=== PATIENT | female | born 1955 | race African-American/Black ===

== ENCOUNTER 2017-10-23 15:42 | Inpatient (IN) | payer MEDICARE, OTHER ==
[2017-10-23 16:16] VITALS: BP 112/58
[2017-10-23] MEDS ORDERED: Magnesium Hydroxide (MOM) 30 mL UDC PO PRN (18:25)
[2017-10-23] MEDS ORDERED: ONDANSETRON HCL 4 MG PO PRN (18:25)
[2017-10-24] MEDS ORDERED: Maalox 30 mL Cup PO PRN (07:24)
[2017-10-24] MEDS: Levothyroxine 0.075 Mg Tab PO SCH (08:44)
--- NOTE | 2017-10-24 23:57 | Psychosocial Evaluation ---
DATE OF SERVICE: 10/24/2017 JUSTIFICATION FOR HOSPITALIZATION: Transferred from [facility]. CHIEF COMPLAINT: "I can't function well." HISTORY OF PRESENT ILLNESS: A 62-year-old female with history of schizophrenia, multiple psychiatric hospitalizations, bowel obstruction, some periods of forgetfulness noted by staff. The patient noted to be "not feeling well." States that she cannot function at a lower level of care. "I do not feel safe." The patient is still depressed, angry, withdrawn and isolative. She is friendly on exam, calm and cooperative. The patient states she needs to be in the hospital. PAST PSYCHIATRIC HISTORY: Multiple admissions in the past. MEDICATIONS: Noted. SOCIAL HISTORY: The patient does have family involvement. She generally lives at home. No current drugs, alcohol, or tobacco. MENTAL STATUS EXAMINATION: Stated age, -Burmese female, fair eye contact. Mood "okay." Asked me to come back later. Affect flat. Thought processes were linear and no overt SI or HI. Concerns for paranoia, suspicions. Insight and judgment reasonable. PROVISIONAL DIAGNOSES: Schizophrenia; anxiety, unspecified; mood, unspecified. Under medical, please see full H and P. ESTIMATED LENGTH OF STAY: 5-7 days. ASSESSMENT: The patient remains symptomatic, depressed, ongoing concern for suspicions, paranoia, underlying psychosis, not rodríguez for safety. PLAN: We will continue to monitor. Continue Remeron and Zyprexa. TREATMENT PLAN: Includes group as well as milieu therapy. CONDITIONS FOR DISCHARGE: Improved mood, improved affect, cessation of any SI or HI, better control of her psychotic symptoms. JOB# [id number]
[2017-10-25] MEDS: Levothyroxine 0.075 Mg Tab PO SCH (09:22)
--- NOTE | 2017-10-25 09:56 | Progress Notes ---
DATE: 10/25/2017 SUBJECTIVE: The patient is in the hospital. Some periods of forgetfulness noted, but otherwise calm, friendly and cooperative, depressed, withdrawn, not rodríguez for safety, noting that she does not feel safe to go home. She does not feel safe to leave the hospital, noted to be anxious at times, easily irritable, angry, withdrawn, mostly in her room, mostly keeps herself. She is able to care for her basic needs. She is able, for example, toilet herself. ASSESSMENT: The patient remains symptomatic, still not rodríguez for safety, ___ to depression, some isolation suspicion, concerns for an underlying psychosis. PLAN: We will continue to monitor. Medications were noted. We will adjust and titrate medications as tolerated. JOB# [id number]
--- NOTE | 2017-10-26 08:28 | Progress Notes ---
DATE: 10/26/2017 SUBJECTIVE: The patient is currently in the hospital, states her stomach hurts. She states she cannot eat. She wants an ambulance immediately taken to the hospital. I let her know she is already in the hospital. She states her mind is "more together". She states, "I don't know how to get better. She is pretty depressed, withdrawn, staff noting that she is forgetful at times, sometimes confused, making nonsensical statements. Medications were noted including dosages and frequencies, sleeping well, eating well, seems to be getting along well with staff and peers, no outbursts. ASSESSMENT: The patient remains symptomatic, depressed, withdrawn, complains of "ileus." The patient does not appear in distress, but states she has no appetite. We will continue to monitor and monitor for any overt side effects, adjust and titrate medications. [facility]# [id number]
[2017-10-26] MEDS: Levothyroxine 0.075 Mg Tab PO SCH (10:14)
[2017-10-27] MEDS ORDERED: Dicyclomine 10 mg Cap PO ONE ×2 (06:30)
[2017-10-27] MEDS: Levothyroxine 0.075 Mg Tab PO SCH (08:48)
[2017-10-27] MEDS ORDERED: Dicyclomine 10 mg Cap PO SCH (09:00)
--- NOTE | 2017-10-27 09:29 | Diagnostic Imaging Report ---
KUB abdominal film (portable) HISTORY: Pain Multiple loops of dilated small bowel is seen. The overall appearance suggests changes associated with a distal small bowel obstruction. Clinical correlation is needed. IMPRESSION: 1. Multiple loops of dilated small bowel consistent with a distal small bowel obstruction. Clinical correlation is needed.
[2017-10-27] MEDS: Dicyclomine 10 mg Cap PO SCH ×2 (15:15→21:14)
--- NOTE | 2017-10-27 22:37 | Progress Notes ---
DATE: 10/27/[address] Serrano. Case was discussed with staff of the patient, reviewed records. This is a 62-year-old female who was admitted on 10/23/2017 with a history of schizophrenia, transferred from [facility]. She has multiple psychiatric hospitalizations, bowel obstruction with periods of forgetfulness. She is not feeling well. She cannot function at a lower level of care, not feel safe, feeling depressed, angry, withdrawn that she has multiple admissions in the past. No family involvement. She lives at home, but no substance abuse. The patient diagnosed with schizophrenia. She is currently on olanzapine 5 mg twice a day, levothyroxine 0.15 mg daily and mirtazapine 15 mg at bedtime. The patient continues to be depressed, not feeling well, unable to enjoy herself. Continues to be confused, sometimes make a nonsensical statements. She is compliant with the medication with no side effects, no sedation or nausea, no extrapyramidal symptoms. We will continue to work with the patient in group therapy, milieu therapy, and adjust the medication as needed. JOB# [id number]
[2017-10-28 08:27] LABS: % BASOPHILS 0.2 % (0.0-2.0); % EOSINOPHILS 0.2 % (0.0-5.0); % LYMPHOCYTES 20.6 % (20.0-50.0); % MONOCYTES 7.7 % (2.0-10.0); % NEUTROPHILS 71.3 % (40.0-80.0); HEMATOCRIT 28.1 % (41.0-60); HEMOGLOBIN 9.4 gm/dL (12-16); LYMPHOCYTE ABSOLUTE 0.9 Th/cmm (1.5-3.0); MEAN CELL VOLUME 98.8 fl (81-100); MEAN CORPUSCULAR HGB CONC 33.3 pg (28.0-36.0); MEAN PLATELET VOLUME 8.1 fl; MONOCYTE ABSOLUTE 0.3 Th/cmm (0.3-1.0); PLATELET COUNT 207 Th/cmm (150-400); RED BLOOD COUNT 2.84 Mil/cmm (3.80-5.10); RED CELL DISTRIBUTION WIDTH 16.8 % (11.5-20.0); WHITE BLOOD COUNT 4.2 Th/cmm (4.8-10.8)
[2017-10-28] MEDS: Levothyroxine 0.075 Mg Tab PO SCH (08:35)
[2017-10-28] MEDS: POLYETHYLENE GLYCOL 3350 17 GM PACK PO SCH (08:35)
[2017-10-28] MEDS: Dicyclomine 10 mg Cap PO SCH ×3 (08:36→21:11)
[2017-10-28 08:53] LABS: ALB/GLOB RATIO 1.2 (1.0-1.8); ALBUMIN 3.5 gm/dL (3.7-5.3); ANION GAP 10.9 (7.0-16.0); BILIRUBIN,TOTAL 0.4 mg/dL (0.3-1.0); CALCIUM SERUM 9.5 mg/dL (8.6-10.3); CARBON DIOXIDE 26.8 mEq/L (21.0-31.0); CREATININE - SERUM 1.2 mg/dL (0.6-1.2); GFR AFRICAN-AMERICAN 58.2 ml/min (>90); GFR NON AFRICAN-AMERICAN 48.1 ml/min; POTASSIUM SERUM 4.7 mEq/L (3.5-5.1); TOTAL PROTEIN,SERUM 6.4 gm/dL (6.0-8.3)
--- NOTE | 2017-10-28 14:32 | History & Physical ---
ADMIT DATE: INTERNAL MEDICINE CONSULTATION REQUESTING PHYSICIAN: Dr. Serrano REASON FOR CONSULTATION: Chronic constipation, hypothyroidism, psychosis. HOSPITAL COURSE/IMPORTANT LABORATORY DATA: A 62-year-old female with history of chronic constipation and chronic ileus, off and on, takes Citrucel at home to help her out, was admitted on 10/20/2017 at [facility] for chronic constipation and the patient also placed on a hold and sent to the psychiatric unit. The patient states that since Thursday, her belly is getting bigger and having lots of abdominal cramps. She is passing urine fine and also have a soft bowel movement every day. The patient denies any vomiting since admission. No fever noted. No headache, vision problems, swallowing problem. The patient denies any nausea, vomiting, diarrhea. No UTI symptomatology. The patient denies any leg swelling or joint swelling. CURRENT MEDICATIONS: Include Synthroid 150 mcg once a day, lorazepam 1 mg once a day p.r.n., milk of magnesia 30 mL once a day p.r.n. for constipation, Remeron 15 mg at bedtime, Zyprexa 5 mg twice a day, Zofran 4 mg q.6 p.r.n., Maalox 30 mL q.4 p.r.n. for dyspepsia. ALLERGIES: HALDOL. SOCIAL HISTORY: Noncontributory. REVIEW OF SYSTEMS: See the history of presenting illness. PHYSICAL EXAMINATION: VITAL SIGNS: Blood pressure 119/76, pulse 58, respiratory rate 16, temperature 98.9, and oxygen saturation on room air 98%. HEENT: No icterus, no pallor, no teeth noted. No oral candidiasis or petechiae. Mucosa is moist and dry. Skin turgor normal. NECK: Supple. LUNGS: Clear. CARDIOVASCULAR: S1, S2 normal limit. ABDOMEN: Soft, gaseous to percussion, but no rebound, no guarding. Bowel sound is active in all quadrants. RECTAL: Deferred per the patient's request. EXTERNAL GENITALIA: Normal. EXTREMITIES: No leg edema noted. LABORATORY TESTS: Pending. KUB has a question of ileus versus small-bowel obstruction. ASSESSMENT AND PLAN: 1. Chronic constipation with ileus. 2. Rule out small-bowel obstruction. Watch for bowel movement and any other signs like vomiting. We will start the patient on Citrucel and Colace. 3. Hypothyroidism. Check TSH level. Continue Synthroid at 150 mcg and go from there. 4. 5150 hold on 10/21/2017. 5. Psychosis. 6. Cachexia with BMI of 14.7. We will give the patient Ensure 1 can t.i.d. JOB# [id number]
[2017-10-28 20:51] LABS: A1C % 4.3 % (4.0-6.0)
[2017-10-29] MEDS: Levothyroxine 0.075 Mg Tab PO SCH (09:18)
[2017-10-29] MEDS: Dicyclomine 10 mg Cap PO SCH ×3 (09:19→20:51)
[2017-10-29] MEDS: POLYETHYLENE GLYCOL 3350 17 GM PACK PO SCH (09:19)
[2017-10-29 09:22] LABS: HEP C ANTIBODY 0.1 s/co ratio (0.0-0.9)
[2017-10-29 12:16] LABS: FOLIC ACID >20.0 ng/mL (>3.0); HEP B SURFACE AG QL Negative (Negative)
--- NOTE | 2017-10-29 16:39 | Progress Notes ---
DATE: 10/28/2017 PSYCHIATRIC PROGRESS NOTE: Chart reviewed and the patient interviewed. Also discussed the patient's condition with the staff and reviewed records and labs. The patient is still depressed and she is still withdrawn. The patient is also complaining of "my abdomen is hurting." She also still has poor appetite and she is still feeling hopeless and helpless. Otherwise, the patient continued to comply with taking her medications. There are no side effects of medications. ASSESSMENT: The patient is still depressed and she still has poor appetite and poor intake. TREATMENT PLAN: Continue to monitor her behavior and her condition closely. Also, continue to work on her ineffective coping. Also, we will increase Remeron to 22.5 mg every day and continue to follow up. [facility]# [id number]
--- NOTE | 2017-10-30 01:18 | Progress Notes ---
DATE: 10/29/2017 Chart reviewed and the patient interviewed. Also, discussed the patient's condition with the staff and reviewed records and labs. The patient is complaining of abdominal pain. The patient also has been anxious and has been pacing up and down at times. Also, during my interview, the patient is angry and irritable mood because of her pain. She is asking for stronger pain medications. The patient also is still slightly suspicious and paranoid. Otherwise, the patient is compliant with taking her medications with no side effects of medications. ASSESSMENT: The patient is still confused and depressed. TREATMENT PLAN: Continue to work on her ineffective coping. Also, we will check on the reasons for her abdominal pain with the primary care. Also, continue working on her ineffective coping and followup. JOB# [id number]
[2017-10-30] MEDS: Levothyroxine 0.075 Mg Tab PO SCH (08:04)
[2017-10-30] MEDS: Dicyclomine 10 mg Cap PO SCH ×3 (08:04→21:17)
[2017-10-30] MEDS: POLYETHYLENE GLYCOL 3350 17 GM PACK PO SCH (08:04)
[2017-10-30] MEDS ORDERED: Hydrocodone/APAP 5mg/325mg Tab PO ONE (23:16)
[2017-10-31] MEDS: Dicyclomine 10 mg Cap PO SCH ×3 (09:10→21:30)
[2017-10-31] MEDS: Levothyroxine 0.075 Mg Tab PO SCH (09:10)
[2017-10-31] MEDS: POLYETHYLENE GLYCOL 3350 17 GM PACK PO SCH (09:10)
--- NOTE | 2017-10-31 09:17 | Diagnostic Imaging Report ---
KUB single view HISTORY: Abdominal pain. COMPARISON: KUB performed on 10/27/2017 FINDINGS: There is diffuse distended loops of bowel with slight improvement since prior exam. Copious stool is noted in the region of the transverse colon and descending colon. No gross free air. IMPRESSION: Diffuse distended loops of bowel with overall mild improvement since prior exam. Copious stool is again noted greatest within the transverse and descending colon. Continued follow-up is recommended.
--- NOTE | 2017-10-31 10:56 | Progress Notes ---
DATE: 10/30/2017 PSYCHIATRIC PROGRESS NOTE SUBJECTIVE: Chart reviewed and the patient interviewed. Also discussed the patient's condition with the staff and reviewed records and labs. The patient is still suspicious and paranoid. The patient also is guarded. She also is complaining of abdominal pain, but it seems to be less than before. The patient also is trying to interact more and she is trying to talk more about herself and her other feelings. The patient has continued to comply with taking her medications with no side effects. ASSESSMENT: The patient is still depressed and has trouble with her coping. TREATMENT PLAN: Continue supportive therapy for the patient. Also, continue working with her ineffective coping and followup. [facility]# [id number]
[2017-10-31] MEDS: Lactulose 10 Gm/15 mL 30mL UDC PO SCH (11:28)
--- NOTE | 2017-10-31 19:12 | Progress Notes ---
DATE: 10/31/2017 PSYCHIATRIC PROGRESS NOTE: Chart reviewed and the patient interviewed. Also, discussed the patient's condition with the staff and reviewed records and labs. The patient is depressed and isolative and anxious. The patient also is still withdrawn. She also is easily agitated. She continued to complain of abdominal pain and that she has constipation, although she did have a large bowel movement yesterday according to the staff. ASSESSMENT: The patient is still depressed and agitated. TREATMENT PLAN: Continue monitoring her behavior and her condition. Also, the abdominal x-ray will be done later on today and continue to work on supportive therapy and her depression and agitation. JOB# [id number]
[2017-11-01] MEDS: Lactulose 10 Gm/15 mL 30mL UDC PO SCH (09:23)
[2017-11-01] MEDS: POLYETHYLENE GLYCOL 3350 17 GM PACK PO SCH (09:24)
[2017-11-01] MEDS: Dicyclomine 10 mg Cap PO SCH ×3 (09:25→22:17)
[2017-11-01] MEDS: Levothyroxine 0.075 Mg Tab PO SCH (09:25)
--- NOTE | 2017-11-02 01:38 | Progress Notes ---
DATE: 11/01/2017 SUBJECTIVE: Chart reviewed and the patient interviewed. Also, discussed the patient's condition with the staff and reviewed the records and labs. The patient is still guarded. The patient also is still suspicious and paranoid. The patient also is still having abdominal pain and continued to ask for more pain medications. She also is still attention seeking. She also is still hypertalkative. Otherwise, the patient is compliant with taking her medications with no side effects of medications. ASSESSMENT: The patient is still depressed and need close monitoring. TREATMENT PLAN: Continue to monitor her behavior and her condition closely. Also, continue adjusting psychotropic medications and supportive therapy. JOB# [id number]
[2017-11-02] MEDS: Lactulose 10 Gm/15 mL 30mL UDC PO SCH (12:20)
[2017-11-02] MEDS: Dicyclomine 10 mg Cap PO SCH ×3 (12:20→20:46)
[2017-11-02] MEDS: POLYETHYLENE GLYCOL 3350 17 GM PACK PO SCH (12:21)
[2017-11-02] MEDS: Levothyroxine 0.075 Mg Tab PO SCH (12:21)
--- NOTE | 2017-11-02 20:33 | Progress Notes ---
DATE: 11/02/2017 PATIENT'S ID: A 62-year-old. SUBJECTIVE: The patient seen and examined. The patient is very well known to me for her multiple admissions at [facility] as well as [facility]. The patient was admitted by Dr. Libia Serrano on 10/23/2017 for psychotic disorder, evaluated this patient for medical management. The patient currently denies any chest pain, shortness of breath, palpitation, dizziness, nausea, vomiting, diarrhea. PHYSICAL EXAMINATION: VITAL SIGNS: Temperature 98, pulse is 74, respiratory rate 18, blood pressure 120/70. HEENT: Absent upper and lower dentition noted. NECK: Supple, no JVD. HEART: Regular. CHEST AD LUNGS: Equal in expansion, no expiratory wheezing. ABDOMEN: Soft. No guarding or rigidity. Bowel sounds are present. No palpable masses. EXTREMITIES: No edema. CLINICAL IMPRESSION: 1. History of chronic constipation. 2. Hypothyroidism. 3. Psychotic disorder. 4. Chronic obstructive pulmonary disease. 5. Degenerative joint disease. 6. Fall precautions. PLAN: 1. Anti-constipation medications. 2. Synthroid. 3. Psych medication. 4. Nutritional support. 5. General nursing care. 6. We will continue to follow this patient during the stay in the hospital. JOB# [id number]
--- NOTE | 2017-11-02 23:14 | Progress Notes ---
DATE: 11/02/2017 PSYCHIATRIC PROGRESS NOTE SUBJECTIVE: Chart reviewed and the patient interviewed. Also discussed the patient's condition with the staff and reviewed records and labs. The patient is still anxious and she is still in a depressed mood. The patient also still has difficulty controlling her mood sometimes and still having some mood swings. The patient also is still pacing at times and restless and hyperverbal. Otherwise, the patient is compliant with taking her medications and easier to redirect. ASSESSMENT: The patient is still depressed. TREATMENT PLAN: Continue monitoring her behavior and her condition closely. Also, increase Remeron to 30 mg at bedtime and we will continue to follow up. JOB# [id number]
[2017-11-03] MEDS: Dicyclomine 10 mg Cap PO SCH ×3 (08:07→20:30)
[2017-11-03] MEDS: Levothyroxine 0.075 Mg Tab PO SCH (08:08)
[2017-11-03] MEDS: Lactulose 10 Gm/15 mL 30mL UDC PO SCH ×2 (08:09→08:13)
[2017-11-03] MEDS: POLYETHYLENE GLYCOL 3350 17 GM PACK PO SCH (08:12)
--- NOTE | 2017-11-04 01:30 | Progress Notes ---
DATE: 11/03/2017 SUBJECTIVE: Chart reviewed and the patient interviewed. Also discussed the patient's condition with the staff and reviewed the records and labs. The patient is still anxious and is still in a depressed mood. The patient also still has complained of abdominal pain. The patient also is still weak and she still at times feels dizzy. Otherwise, the patient is compliant with taking the medications. I discussed with the patient and renal case manager, the possibility of admitting the patient to ____ rehabilitation and also to monitor her medical condition more and we will work toward that. At the same time, continue current treatment and medications and continue to follow up. JOB# [id number]
[2017-11-04] MEDS: Levothyroxine 0.075 Mg Tab PO SCH (08:59)
[2017-11-04] MEDS: Dicyclomine 10 mg Cap PO SCH ×3 (09:01→20:28)
[2017-11-04] MEDS: Lactulose 10 Gm/15 mL 30mL UDC PO SCH (09:02)
[2017-11-04] MEDS: POLYETHYLENE GLYCOL 3350 17 GM PACK PO SCH (10:41)
--- NOTE | 2017-11-04 21:31 | Progress Notes ---
DATE: SUBJECTIVE: Chart reviewed and the patient interviewed. Also discussed the patient's condition with the staff and reviewed records and labs. The patient still has multiple somatic complaints. The patient also is still complaining of abdominal pain and lack of appetite. The patient also complaining of feeling weak. The patient also still has problem with her mood and her appetite. Otherwise, the patient is compliant with taking her medications. ASSESSMENT: The patient is still depressed. TREATMENT PLAN: We will continue Zyprexa and we will continue Remeron at same dose. Also, continue to monitor her behavior and medications closely. Also discussed with the patient the possibility of going to a [place] in order to continue her treatment and in order to work on her physical therapy since the patient is still weak and have unsteady gait. [facility]# [id number]
--- NOTE | 2017-11-05 00:31 | Progress Notes ---
DATE: 11/04/2017 SUBJECTIVE: The patient seen and examined. The patient is lying in the bed. The patient has no new complaint. The patient remained hemodynamically stable. OBJECTIVE: VITAL SIGNS: Temperature 98, pulse is 74, respiratory rate 18, blood pressure 102/62. Discussed with nursing staff about their concern on today's exam. HEENT: No facial asymmetry. NECK: Supple, no JVD. HEART: Regular. CHEST: Lung equal in expansion, no expiratory wheezing. ABDOMEN: Soft. No guarding, no rigidity. Bowel sounds present. No palpable mass. EXTREMITIES: No edema. NEUROLOGIC: Alert, awake, follows command. No gross neuro deficit noted. CLINICAL IMPRESSION: 1. Chronic obstructive pulmonary disease. 2. Chronic constipation. 3. Hypothyroidism. 4. Psychotic disorder. 5. Degenerative joint disease. 6. Protein calorie malnutrition. 7. Anemia of chronic illness. PLAN: 1. Anticonstipation medications. 2. P.r.n. nebulizer treatment. 3. Psychotic medication. 4. Nutritional support. 5. General nursing care. 6. Fall precautions. 7. Continue current medication. 8. Medication management. 9. Care plan reviewed and discussed. JOB# [id number]
[2017-11-05] MEDS: Levothyroxine 0.075 Mg Tab PO SCH (09:00)
[2017-11-05] MEDS: Dicyclomine 10 mg Cap PO SCH ×3 (09:00→20:35)
[2017-11-05] MEDS: Lactulose 10 Gm/15 mL 30mL UDC PO SCH (09:02)
[2017-11-05] MEDS: POLYETHYLENE GLYCOL 3350 17 GM PACK PO SCH (09:03)
--- NOTE | 2017-11-05 18:32 | Progress Notes ---
DATE: 11/05/2017 DATE OF EVALUATION: 11/05/2017 SUBJECTIVE: The patient seen and examined. The patient is sitting in the chair. The patient tells me she is eating better now. Denies any chest pain, shortness of breath, palpitation, or dizziness. Discussed with nursing staff, no new event noted. PHYSICAL EXAMINATION: GENERAL: The patient has low-grade temperature of 99.2, pulse 77, respiratory rate is 18, blood pressure 108/67. HEENT: No facial asymmetry. Absent upper and lower dentition noted. NECK: Supple, no JVD. HEART: Regular. CHEST: Lungs equal in expansion, no expiratory wheezing. ABDOMEN: Soft. No guarding, rigidity. Bowel sounds present. No palpable mass. EXTREMITIES: No edema. CLINICAL IMPRESSION: 1. Acute exacerbation of psychotic disorder. 2. Chronic constipation. 3. Anemia of chronic disease. 4. Chronic obstructive pulmonary disease. 5. Degenerative joint disease. 6. Diverticulosis. 7. Mild leukopenia on CBC on 10/28/2017. PLAN: Continue current medication as prescribed. Avoid constipation. Psych medication and psych followup. General nursing care. Fall precautions, nutritional support, and will do the followup CBC for tomorrow. Care plan reviewed and discussed with RN. JOB# [id number]
[2017-11-06] MEDS: Lactulose 10 Gm/15 mL 30mL UDC PO SCH ×2 (08:26→08:58)
[2017-11-06] MEDS: Dicyclomine 10 mg Cap PO SCH ×2 (08:33→13:58)
[2017-11-06] MEDS: Levothyroxine 0.075 Mg Tab PO SCH (08:34)
[2017-11-06] MEDS: POLYETHYLENE GLYCOL 3350 17 GM PACK PO SCH (08:54)
--- NOTE | 2017-11-06 20:47 | Progress Notes ---
DATE: SUBJECTIVE: Chart reviewed and the patient interviewed. Also discussed the patient's condition with the staff and reviewed records and labs. The patient is still anxious and she is still agitated. The patient also still having mood swings. The patient also is complaining of abdominal pain and lack of appetite. Otherwise, the patient is compliant with taking her medications with no side effects of medications. ASSESSMENT: The patient is still anxious and depressed. TREATMENT PLAN: Continue to monitor the patient's behavior and condition closely. Also, continue to work on discharge plans and try to get the patient to [facility] if she is cooperative with the discharge plans. JOB# [id number]
== END 2017-11-06 17:05 | disposition home or self-care (01) | DRG 885 ==
LOC: GERO 15:42
PROVIDERS: ADMIT Psychiatry & Neurology Psychiatry; ATTEND Psychiatry & Neurology Psychiatry
DX: F20.9 Schizophrenia, unspecified (principal); E46 Unspecified protein-calorie malnutrition; Z68.1 Body mass index [BMI] 19.9 or less, adult; F41.9 Anxiety disorder, unspecified; F39 Unspecified mood [affective] disorder; K59.09 Other constipation; E03.9 Hypothyroidism, unspecified; F29 Unspecified psychosis not due to a substance or known physiological condition; J44.9 Chronic obstructive pulmonary disease, unspecified; M19.90 Unspecified osteoarthritis, unspecified site; D63.8 Anemia in other chronic diseases classified elsewhere
CPT/HCPCS: 36415-UA; 74000-TC; 80053-TC; 80061-TC; 82150-TC; 82270-TC; 82607-90; 82746-90; 82948-90; 83036-90; 83540-90; 83550-90; 83690-TC; 84443-TC; 85025-TC; 86803-90; 87340-90; 90899; G0410; J7051; Q0162; Z7610

== ENCOUNTER 2018-11-20 07:57 | Inpatient (IN) | payer MEDICARE, OTHER ==
--- NOTE | 2018-11-20 08:23 | ED Physician Chart ---
ED Chief Complaint/HPI - Patient Information Date Seen:: 11/20/18 Time Seen:: 08:18 Chief Complaint:: mental disorder History of Present Illness:: This is a 63 yo female bib her son for evaluation and treatment from home. she has been in this hospital for the same complaints in the past and under the care of Dr. Serrano. the patient seems to be depressed with occasional mood swings. Allergies:: Allergies Allergy/AdvReac Type Severity Reaction Status Date / Time haloperidol [From Haldol] Allergy Verified 10/23/17 16:22 Historian:: Patient, Family Member, Medical Records Review:: Nurse's Note Reviewed, Old Chart Reviewed ED Review of Systems - Review of Systems General/Constitutional: No fever, No chills, No weight loss, No weakness, No diaphoresis, No edema, No loss of appetite Skin: No skin lesions, No rash, No bruising Head: No headache, No light-headedness Eyes: No loss of vision, No pain, No diplopia ENT: No earache, No nasal drainage, No sore throat, No tinnitus Neck: No neck pain, No swelling, No thyromegaly, No stiffness, No mass noted Cardio Vascular: No chest pain, No palpitations, No PND, No orthopnea, No edema Pulmonary: No SOB, No cough, No sputum, No wheezing GI: No nausea, No vomiting, No diarrhea, No pain, No melena, No hematochezia, No constipation, No hematemesis G/U: No dysuria, No frequency, No hematuria Musculoskeletal: No bone or joint pain, No back pain, No muscle pain Endocrine: No polyuria, No polydipsia Psychiatric: Prior psych history, Depression, No anxiety, No suicidal ideation Hematopoietic: No bruising, No lymphadenopathy Allergic/Immuno: No urticaria, No angioedema Neurological: No syncope, No focal symptoms, No weakness, No paresthesia, No headache, No seizure, No dizziness, No confusion, No vertigo ED Past Medical History - Past Medical History Obtainable: Yes Past Medical History: Asthma/COPD, Dyslipidemia, Thyroid disorder, Dementia Family History: None Social History: Non Smoker, No Alcohol, No Drug Use, Single Surgical History: None Psychiatricy History: Depression, Schizophrenia, Dementia Family Medical History - Family Member Mother History Unknown: Yes ED Physical Exam - Physical Examination General/Constitutional: Awake, Well-developed, well-nourished, Alert, No distress, GCS 15, Non-toxic appearing, Ambulatory Head: Atraumatic Eyes: Lids, conjuctiva normal, PERRL, EOMI Skin: Nl inspection, No rash, No skin lesions, No ecchymosis, Well hydrated, No lymphadenopathy ENMT: External ears, nose nl, Nasal exam nl, Lips, teeth, gums nl Neck: Nontender, Full ROM w/o pain, No JVD, No nuchal rigidity, No bruit, No mass, No stridor Respiratory: Nl effort/Exclusion, Clear to Auscultation, No Wheeze/Rhonchi/Rales Cardio Vascular: RRR, No murmur, gallop, rubs, NL S1 S2 GI: No tenderness/rebounding/guarding, No organomegaly, No hernia, Normal BS's, Nondistended, No mass/bruits, No McBurney tenderness : No CVA tenderness Extremities: No tenderness or effusion, Full ROM, normal strength in all extremities, No edema, Normal digits & nails Neuro/Psych: Alert/oriented, DTR's symmetric, Normal sensory exam, Normal motor strength, Judgement/insight normal (depressed), Mood normal (mood swings, ), Normal gait, No focal deficits Misc: Normal back, No paraspinal tenderness ED Labs/Radiology/EKG Results - Lab Results Results: Laboratory Results - last 24 hr 11/20/18 11/20/18 11/20/18 08:40 08:40 08:40 WBC 6.8 RBC 2.82 L Hgb 8.7 L Hct 26.2 L MCV 92.9 MCH 30.9 MCHC Differential 33.3 RDW 15.1 Plt Count 225 MPV 8.8 Neutrophils % 67.3 Lymphocytes % 17.0 L Monocytes % 5.1 Eosinophils % 10.1 H Basophils % 0.5 PT 11.6 H INR 1.13 PTT (Actin FS) 28.8 Troponin I 0.02 - Radiology Results Results: chest x-ray = findings consistent with copd - EKG Interpretations EKG Time:: 08:42 Rate & Rhythm: rate =55, left bundle branch block Rowe: right ED Assessment - Assessment General Assessment: depression and schizophrenia ED Septic Shock - . Is Septic Shock (SBP<90, OR Lactate>4 mmol\L) present?: No ED Reassessment (Disposition) - Reassessment Reassessment Condition:: Unchanged - Diagnosis Diagnosis:: severe depression anemia - Patient Disposition Discharge/Transfer:: Acute Care w/in this hosp Admitted to:: [facility] Admitting Medical Physician:: Jacky Almendarez Admitting Psych Physician:: Libia Serrano Condition at Disposition:: Stable
[2018-11-20 08:48] LABS: % BASOPHILS 0.5 % (0.0-2.0); % EOSINOPHILS 10.1 % (0.0-5.0); % MONOCYTES 5.1 % (2.0-10.0); % NEUTROPHILS 67.3 % (40.0-80.0); EOSINOPHILE ABSOLUTE 0.7 Th/cmm (0.1-0.4); HEMATOCRIT 26.2 % (41.0-60); HEMOGLOBIN 8.7 gm/dL (12-16); LYMPHOCYTE ABSOLUTE 1.2 Th/cmm (1.5-3.0); MEAN CELL VOLUME 92.9 fl (81-100); MEAN CORPUSCULAR HEMOGLOBIN 30.9 pg (27.0-31.0); MEAN CORPUSCULAR HGB CONC 33.3 pg (28.0-36.0); MONOCYTE ABSOLUTE 0.3 Th/cmm (0.3-1.0); NEUTROPHILE ABSOLUTE 4.6 Th/cmm (1.8-8.0); PLATELET COUNT 225 Th/cmm (150-400); RED BLOOD COUNT 2.82 Mil/cmm (3.80-5.20); RED CELL DISTRIBUTION WIDTH 15.1 % (11.5-20.0); WHITE BLOOD COUNT 6.8 Th/cmm (4.8-10.8)
[2018-11-20 08:57] LABS: INR 1.13 (0.5-1.4)
[2018-11-20 09:28] LABS: ALB/GLOB RATIO 1.1 (1.0-1.8); ALBUMIN 4.3 gm/dL (3.7-5.3); ANION GAP 17.3 (7.0-16.0); BILIRUBIN,TOTAL 0.5 mg/dL (0.3-1.0); CALCIUM SERUM 9.4 mg/dL (8.6-10.3); CARBON DIOXIDE 23.7 mEq/L (21.0-31.0); CREATININE - SERUM 3.1 mg/dL (0.6-1.2); GFR AFRICAN-AMERICAN 19.4 ml/min (>90); TOTAL PROTEIN,SERUM 8.3 gm/dL (6.0-8.3)
--- NOTE | 2018-11-20 09:44 | Diagnostic Imaging Report ---
Exam: Chest x-ray HISTORY: Congestion Prior exam: None Findings: Frontal examination of the chest was reviewed, no prior studies available comparison. Bony thorax is intact. Left-sided PICC line terminates left axillary vein. The aortic arch calcified. Mediastinal structures midline. There is evidence for elevation of the diaphragm bilaterally with distended air bowel loops. IMPRESSION no acute disease.
[2018-11-20 09:57] LABS: URINE SOURCE CLEAN C
[2018-11-20 09:59] LABS: URINE BILIRUBIN NEGATIVE (NEGATIVE); URINE BLOOD MODERATE (NEGATIVE); URINE GLUCOSE (UA) NEGATIVE (NEGATIVE); URINE KETONE NEGATIVE (NEGATIVE); URINE LEUKOCYTE ESTERASE NEGATIVE (NEGATIVE); URINE MICROSCOPIC INDICATED? YES; URINE NITRATE NEGATIVE (NEGATIVE); URINE PROTEIN NEGATIVE (NEGATIVE); URINE UROBILINOGEN 0.2 E.U./dL (0.2 - 1.0)
[2018-11-20 10:06] LABS: URINE BACTERIA NONE SEEN /hpf (NONE SEEN); URINE CLARITY CLEAR (CLEAR); URINE COLOR YELLOW; URINE EPITHELIAL CELLS FEW /lpf (FEW); URINE WBC 0-2 /hpf (0-5)
[2018-11-20 23:36] VITALS: BP 139/66
[2018-11-21] MEDS ORDERED: Magnesium Hydroxide (MOM) 30 mL UDC PO PRN ×3 (06:00→13:28)
[2018-11-21] MEDS ORDERED: Maalox 30 mL Cup PO PRN ×2 (06:00→13:28)
[2018-11-21 06:30] LABS: CHOLESTEROL 151 mg/dL (<200); HDL -HIGH DENSITY LIPOPROTEIN 65 mg/dL (23-92); TRIGLYCERIDES 67 mg/dL (<150)
[2018-11-21] MEDS: Multivitamin Tab PO SCH ×2 (09:00)
[2018-11-21] MEDS ORDERED: ONDANSETRON HCL 4 MG PO PRN (13:28)
[2018-11-21] MEDS: Dicyclomine 10 mg Cap PO SCH ×3 (14:00→21:35)
--- NOTE | 2018-11-21 14:52 | History & Physical ---
ADMIT DATE: 11/20/2018 INTERNAL MEDICINE HISTORY AND PHYSICAL CHIEF COMPLAINT: Not eating, feeling depressed, this is a medical evaluation. HISTORY OF PRESENT ILLNESS: This is a 63-year-old -[place] female with history of dysphagia with G-tube, COPD, dementia, hypothyroidism, DJD, admitted apparently from home, brought in by son to the ER for possible evaluation and admitted to [facility]. PAST MEDICAL HISTORY: As mentioned in history of present illness. PAST SURGICAL HISTORY: G-tube. ALLERGIES: HALDOL. MEDICATIONS: The patient is on Synthroid, lorazepam, mirtazapine, olanzapine, Zofran, Bentyl, lactulose, MiraLax. FAMILY HISTORY: Noncontributory. SOCIAL HISTORY: The patient is from home, unclear whether she is a smoker and drinker. REVIEW OF SYSTEMS: Limited. The patient is answering questions. So we will try to get information from friend, Sidney Denise and son, Yogesh Haq, [phone]. Also we will try to get information from the patient's primary care doctor who follows the patient. PHYSICAL EXAMINATION: VITAL SIGNS: Blood pressure 103/59, respirations 20, pulse 80, temperature 98.6. GENERAL: Elderly female, appears her stated age. NECK: Supple. LUNGS: Equal breath sounds, few rhonchi. HEART: Regular rate and rhythm without systolic ejection murmur. ABDOMEN: Soft, globular. EXTREMITIES: Positive excoriation. NEUROLOGIC: Limited. LABORATORY DATA: WBC 6.8, hemoglobin 8.7, platelets 225. INR 1.1. Sodium 136, potassium 4.0, BUN 35, creatinine 3.1. TSH 1.5. UA essentially negative. ASSESSMENT AND PLAN: 1. Anemia of renal insufficiency. 2. Thin built. 3. Dysphagia with G-tube. 4. Chronic obstructive pulmonary disease. 5. Dementia. 6. Hypothyroidism. 7. Degenerative joint disease. PLAN: We will perform renal ultrasound. Monitor the patient's renal function. ____ includes fluid and diet. Apparently, the patient is able to take p.o. We will continue monitoring the patient closely. [facility]# [id number]
--- NOTE | 2018-11-22 07:58 | Progress Notes ---
DATE: SUBJECTIVE: Chart reviewed and the patient interviewed. Also discussed the patient's condition with the staff and reviewed records and labs, "please help me." The patient is severely depressed and withdrawn. The patient also is feeling hopeless and helpless. The patient also has fear of and she was uncooperative yesterday with the staff and refused to eat or to take medications or to get ultrasound. This morning, the patient is agreeable to work with me and she agreed to take Remeron and also she would like to have "diapers my size." She feels that the diapers from the hospital are loose and does not fit her because of her small size. The patient is also agreeable to eat regular food, "I don't like soups." The patient also is asking for honey or brown sugar rather than white sugar. She is feeling hopeless and helpless, but at the same time willing to cooperate and to work on her depression. ASSESSMENT: The patient is still severely depressed and is withdrawn and needs observation. TREATMENT PLAN: We will continue monitoring her behavior and her condition closely. Also, continue to work on her ineffective coping. Also, we will try to get diapers her size and work with her other request, which seems to be a reasonable and at the same time, she is agreeable to take her medication. [facility]# [id number]
[2018-11-22 09:12] LABS: A1C 5.3 % (4.8-5.6)
--- NOTE | 2018-11-22 09:42 | Psychiatric Evaluation ---
DATE OF SERVICE: PSYCHIATRIC INITIAL EVALUATION AND MENTAL STATUS EXAMINATION PATIENT'S AGE: 63. SEX: Female. PHYSICIAN: Dr. Serrano. CHIEF COMPLAINT: Depression and paranoia. HISTORY OF PRESENT ILLNESS: The patient is a 63-year-old female with history of schizoaffective disorder and has been under my care for several years. The patient has been depressed and has not been eating and has been losing a lot of weight. Medical workup is within normal. Her son has been concerned about her condition and about the duration and her condition and brought her to the hospital. The patient has been depressed and has been feeling hopeless and helpless. The patient also has episodes of paranoia and fear. The patient denies any thoughts of suicide or homicide. The patient has G-tube, although she is still able to take food orally. PAST PSYCHIATRIC HISTORY: The patient has a long history of schizoaffective disorder. PAST MEDICAL HISTORY: The patient has a history of bronchial asthma, COPD, hypothyroidism and dyslipidemia. SOCIAL HISTORY: The patient lives with her son. The patient does not drink alcohol or use any street drugs or smoke cigarettes. ALLERGIES: No known allergies. MENTAL STATUS EXAMINATION: The patient appears her stated age. Anxious. Underweight. Depressed mood. Low tone and rate of speech. Seems to be suspicious and paranoid and preoccupied. The patient denies hallucinations or delusions and she denies any thoughts of suicide or homicide. The patient is alert and oriented to time, place, person, and situation. Intact immediate, recent and remote memories. Poor insight and judgment. Seems to be of average intelligence based on her verbal ability. ASSESSMENT: PRIMARY DIAGNOSES: Schizoaffective disorder, depressive disorder, severe, with psychotic features. TREATMENT PLAN: We will monitor the patient's behavior closely. We will start the patient on Remeron and we will adjust the dose. ESTIMATED LENGTH OF STAY: 5-7 days. THE PATIENT'S STRENGTHS AND WEAKNESSES: The patient's strength is that she has a supportive son and that she is cooperative with her treatment ____ unexpected problem. AFTER DISCHARGE PLAN: The patient might need rehabilitation and ____ therapy and outpatient treatment and followup, will continue as an outpatient. CRITERIA FOR DISCHARGE: The patient ____ with medications and will establish outpatient treatment plans. JOB# [id number]
[2018-11-22] MEDS: Lactulose 10 Gm/15 mL 30mL UDC PO SCH (09:52)
[2018-11-22] MEDS: POLYETHYLENE GLYCOL 3350 17 GM PACK PO SCH (09:53)
[2018-11-22] MEDS: Multivitamin Tab PO SCH (09:53)
[2018-11-22] MEDS: Dicyclomine 10 mg Cap PO SCH ×4 (09:53→20:53)
[2018-11-22] MEDS: Levothyroxine 0.075 Mg Tab PO SCH (09:53)
[2018-11-23] MEDS: Dicyclomine 10 mg Cap PO SCH ×4 (08:44→20:20)
[2018-11-23] MEDS: POLYETHYLENE GLYCOL 3350 17 GM PACK PO SCH ×2 (08:44→09:47)
[2018-11-23] MEDS: Levothyroxine 0.075 Mg Tab PO SCH ×2 (08:45→09:47)
[2018-11-23] MEDS: Multivitamin Tab PO SCH (08:45)
[2018-11-23] MEDS: Lactulose 10 Gm/15 mL 30mL UDC PO SCH ×2 (08:45→09:47)
--- NOTE | 2018-11-23 10:34 | Internal Medicine Prog Note ---
Internal Medicine Subjective - Subjective Service Date: 11/23/18 Patient seen and examined:: with staff Patient is:: awake, verbal Per staff patient has:: tolerating meds Internal Medicine Objective - Results Result Diagrams: 11/20/18 08:40 11/20/18 08:40 Recent Labs: Laboratory Last Values WBC 6.8 Th/cmm (4.8-10.8) 11/20/18 08:40 RBC 2.82 Mil/cmm (3.80-5.20) L 11/20/18 08:40 Hgb 8.7 gm/dL (12-16) L 11/20/18 08:40 Hct 26.2 % (41.0-60) L 11/20/18 08:40 MCV 92.9 fl (81-100) 11/20/18 08:40 MCH 30.9 pg (27.0-31.0) 11/20/18 08:40 MCHC Differential 33.3 pg (28.0-36.0) 11/20/18 08:40 RDW 15.1 % (11.5-20.0) 11/20/18 08:40 Plt Count 225 Th/cmm (150-400) 11/20/18 08:40 MPV 8.8 fl 11/20/18 08:40 Neutrophils % 67.3 % (40.0-80.0) 11/20/18 08:40 Lymphocytes % 17.0 % (20.0-50.0) L 11/20/18 08:40 Monocytes % 5.1 % (2.0-10.0) 11/20/18 08:40 Eosinophils % 10.1 % (0.0-5.0) H 11/20/18 08:40 Basophils % 0.5 % (0.0-2.0) 11/20/18 08:40 PT 11.6 SECONDS (9.5-11.5) H 11/20/18 08:40 INR 1.13 (0.5-1.4) 11/20/18 08:40 PTT (Actin FS) 28.8 SECONDS (26.0-38.0) 11/20/18 08:40 Sodium 136 mEq/L (136-145) 11/20/18 08:40 Potassium 4.0 mEq/L (3.5-5.1) 11/20/18 08:40 Chloride 99 mEq/L (98-107) 11/20/18 08:40 Carbon Dioxide 23.7 mEq/L (21.0-31.0) 11/20/18 08:40 Anion Gap 17.3 (7.0-16.0) H 11/20/18 08:40 BUN 35 mg/dL (7-25) H 11/20/18 08:40 Creatinine 3.1 mg/dL (0.6-1.2) H 11/20/18 08:40 Est GFR ( Amer) 19.4 ml/min (>90) 11/20/18 08:40 Est GFR (Non-Af Amer) 16.0 ml/min 11/20/18 08:40 BUN/Creatinine Ratio 11.3 11/20/18 08:40 Glucose 73 mg/dL (70-105) 11/20/18 08:40 Calcium 9.4 mg/dL (8.6-10.3) 11/20/18 08:40 Total Bilirubin 0.5 mg/dL (0.3-1.0) 11/20/18 08:40 AST 16 U/L (13-39) 11/20/18 08:40 ALT 7 U/L (7-52) 11/20/18 08:40 Alkaline Phosphatase 86 U/L (34-104) 11/20/18 08:40 Troponin I 0.02 ng/mL (0.01-0.05) 11/20/18 08:40 Total Protein 8.3 gm/dL (6.0-8.3) 11/20/18 08:40 Albumin 4.3 gm/dL (3.7-5.3) 11/20/18 08:40 Globulin 4.0 gm/dL 11/20/18 08:40 Albumin/Globulin Ratio 1.1 (1.0-1.8) 11/20/18 08:40 Triglycerides 67 mg/dL (<150) 11/21/18 06:14 Cholesterol 151 mg/dL (<200) 11/21/18 06:14 LDL Cholesterol Direct 82 mg/dL (75-193) 11/21/18 06:14 HDL Cholesterol 65 mg/dL (23-92) 11/21/18 06:14 TSH 1.57 uIU/ml (0.34-5.60) 11/20/18 08:40 Urine Source CLEAN C 11/20/18 09:50 Urine Color YELLOW 11/20/18 09:50 Urine Clarity CLEAR (CLEAR) 11/20/18 09:50 Urine pH 6.0 (4.6 - 8.0) 11/20/18 09:50 Ur Specific [place] 1.025 (1.005-1.030) 11/20/18 09:50 Urine Protein NEGATIVE mg/dL (NEGATIVE) 11/20/18 09:50 Urine Glucose (UA) NEGATIVE mg/dL (NEGATIVE) 11/20/18 09:50 Urine Ketones NEGATIVE mg/dL (NEGATIVE) 11/20/18 09:50 Urine Blood MODERATE (NEGATIVE) H 11/20/18 09:50 Urine Nitrate NEGATIVE (NEGATIVE) 11/20/18 09:50 Urine Bilirubin NEGATIVE (NEGATIVE) 11/20/18 09:50 Urine Urobilinogen 0.2 E.U./dL (0.2 - 1.0) 11/20/18 09:50 Ur Leukocyte Esterase NEGATIVE (NEGATIVE) 11/20/18 09:50 Urine RBC 2-5 /hpf (0-5) 11/20/18 09:50 Urine WBC 0-2 /hpf (0-5) 11/20/18 09:50 Ur Epithelial Cells FEW /lpf (FEW) 11/20/18 09:50 Urine Bacteria NONE SEEN /hpf (NONE SEEN) 11/20/18 09:50 - Physical Exam Vitals and I&O: Vital Signs Temp 0 F 11/22/18 06:11 Pulse 92 11/21/18 20:09 Resp 20 11/21/18 20:09 BP 110/62 11/21/18 14:57 Pulse Ox 100 11/21/18 20:09 Active Medications: Current Medications Acetaminophen (Tylenol) 650 mg PO Q4HR PRN PRN Reason: Mild Pain / Temp above 100 Stop: 01/20/19 05:59 Al Hydrox/Mg Hydrox/Simethicone (Maalox) 30 ml PO Q4H PRN PRN Reason: GI DISTRESS Stop: 01/20/19 13:27 Dicyclomine HCl (Bentyl) 20 mg PO TID MELANIE Stop: 01/20/19 13:59 Last Admin: 11/23/18 09:47 Dose: Not Given Docusate Sodium (Colace) 100 mg PO BID MELANIE Stop: 01/20/19 16:59 Last Admin: 11/23/18 09:47 Dose: Not Given Lactulose (Cephulac) 30 gm PO DAILY MELANIE Stop: 01/21/19 08:59 Last Admin: 11/23/18 09:47 Dose: Not Given Levothyroxine Sodium (Synthroid) 0.15 mg PO DAILY MELANIE Stop: 01/21/19 08:59 Last Admin: 11/23/18 09:47 Dose: Not Given Lorazepam (Ativan) 0.5 mg PO Q4HR PRN; Protocol PRN Reason: Anxiety/Agitation Stop: 12/21/18 05:59 Magnesium Hydroxide (Milk Of Magnesia) 30 ml PO HS PRN PRN Reason: Constipation Magnesium Hydroxide (Milk Of Magnesia) 30 ml PO DAILY PRN PRN Reason: Constipation Stop: 01/20/19 13:27 Mirtazapine (Remeron) 7.5 mg PO HS MELANIE; Protocol Stop: 01/20/19 20:59 Last Admin: 11/22/18 20:53 Dose: Not Given Multivitamins/Vitamin C (Theragran) 1 tab PO DAILY MELANIE Stop: 01/20/19 08:59 Last Admin: 11/23/18 08:45 Dose: 1 tab Ondansetron HCl (Zofran Odt) 4 mg PO Q6H PRN PRN Reason: NQAUSEA Stop: 01/20/19 14:12 Polyethylene Glycol (Miralax) 17 gm PO DAILY MELANIE Stop: 01/21/19 08:59 Last Admin: 11/23/18 09:47 Dose: Not Given Zolpidem Tartrate (Ambien) 5 mg PO HS PRN PRN Reason: Insomnia Stop: 01/20/19 05:59 General: alert HEENT: NC/AT, PERRLA Neck: Supple Lungs: CTAB Cardiovascular: RRR, Normal S1, Normal S2, without murmur Abdomen: soft, non-tender, non-distended, positive bowel sound Extremities: excoriation Neurological: alert - Procedures Procedures: Procedures Procedure Code Date OTHER GROUP THERAPY 94.44 01/13/11 RECREATIONAL THERAPY 93.81 01/13/11 Internal Medicine Assmt/Plan - Assessment Assessment: Asthma COPD Dyslipidemia hypohyroid Dementia - Plan Plan: fall precautions cont home meds continue current plan of care Nutritional Asmnt/Malnutr-PDOC - Dietary Evaluation Malnutrition Findings (Please click <Entered> for more info): Nutritional Asmnt/Malnutrition Start: 11/22/18 08: 46 Text: Status: Active Freq: Protocol: Document 11/22/18 14:26 RAOUL (Rec: 11/22/18 14:31 RAOUL MELONIE-[email or web address]) Nutritional Asmnt/Malnutrition Patient General Information Nutritional Screening High Risk Consult Diagnosis Schizophrenia Pertinent Medical Hx/Surgical Hx Asthma/COPD, Dyslipidemia, Thyroid disorder, Dementia, Depression, Schizophrenia, dysphagia with G-tube, DJD Subjective Information Consult, received 11/21: Poor PO intakes Pt is a 63-year-old female admitted on 11/20 bib Pts son for evaluation, Pt has been depressed with occasional mood swings. Son stated to hospital personnel that Pt has been refusing to eat and had TPN via PICC line prior to admission. Per RN note (11/20) Pt was given a sandwich, 3 juices, and chocolate pudding and ate it all. Spoke with RN, Nita, she stated the Pt requested soup and was more compliant in eating once given soup. RN stated she drank her Ensure today and is requesting soup with every meal. Recommended to RN to contact Md regarding GFR and BUN/Cr, if Pt should be placed on a renal diet. RN stated the Pt was going to have a kidney ultrasound and would contact MD regarding diet order (completed). Recommend switching Ensure Enlive to Suplena pending ultrasound results. HT: 57 WT: 102 LB (46.36 kg) BMI: 15.98 (Underweight) GI: Not noted BM: Not noted I/O: 920/Not Noted Skin: Not noted Tommy: 19 Diet Order: Renal, chopped, Ensure Enlive 4x day Estimated Energy Needs: ( Underweight, Renal, CBW) 2757-7944 kcals (30-35 kcals/ kg) 28-35g Pro (0.6-0.75 g/kg) Per MD Current Diet Order/ Nutrition Support Renal, chopped, Ensure Enlive 4x day Pertinent Medications Maalox (PRN0, Colace, Cephulac , Synthroid, MOM (PRN), Theregran, Zofran (PRN), Miralax Pertinent Labs 8/3: Hgb/Hct 8.7/26.2, BUN/ Cr 35/3.1, GFR 19.4 Nutritional Hx/Data Height 5 ft 7 in Height (Calculated Centimeters) 170.2 Current Weight (lbs) 102 lb Weight (Calculated Kilograms) 46.3 Weight (Calculated Grams) 51248.4 [place] Body Weight 135 LB (61.36kg) % [place] Body Weight 76 Body Mass Index (BMI) 16.0 Weight Status Underweight GI Symptoms Last BM Not noted Skin Integrity/Comment: Tommy: 19 Estimated Nutritional Goals BEE in Kcals: Using Current wt Calories/Kcals/Kg 30-35 Kcals Calculated 1035-7029 Protein: Using Current wt Protein g/k.6-0.75 Protein Calculated 28-35 Fluid: ml Per MD Nutritional Problem 2. Problem Problem Underweight Etiology r/t possible poor appetite/ psychosis Signs/Symptoms: aeb Pt refusal to eat at times . 1. Problem Problem Altered nutrition related labs Etiology r/t pathophysiological causes Signs/Symptoms: aeb BUN/ Cr 35/3.1, GFR 19.4. Malnutrition Related to Morbid Obesity Malnutrition related to morbid obesity No Intervention/Recommendation Recommendations by RD Increase Calorie Intake Comments 1. Continue with Renal, chopped diet as ordered. 2. Recommend switching Ensure Enlive to Suplena pending ultrasound results and kidney related labs. 3. RN to encourage improved PO intake. Expected Outcomes/Goals Expected Outcomes/Goals 1. PO intake to meet 75% of nutritional needs. 2. Monitor PO intake, skin integrity, and nutrition related labs to trend WNL. 3 .Weight to trend towards IBW in 3-5 days. 4 .F/U as moderate risk in 7 days, 11/25-11/27
[2018-11-24] MEDS: Lactulose 10 Gm/15 mL 30mL UDC PO SCH (09:19)
[2018-11-24] MEDS: Multivitamin Tab PO SCH (09:19)
[2018-11-24] MEDS: OLANZapine 5 mg Oral Disintegrating Tab PO SCH (09:19)
[2018-11-24] MEDS: Dicyclomine 10 mg Cap PO SCH ×3 (09:19→20:38)
[2018-11-24] MEDS: Levothyroxine 0.075 Mg Tab PO SCH (09:19)
[2018-11-24] MEDS: POLYETHYLENE GLYCOL 3350 17 GM PACK PO SCH (09:19)
--- NOTE | 2018-11-24 09:31 | Progress Notes ---
DATE: SUBJECTIVE: Chart reviewed and the patient interviewed. Also discussed the patient's condition with the staff and reviewed records and labs. The patient remains severely depressed and fearful. The patient said, "I don't want to go back to my place and I am afraid." The patient said and admitted that she is unable to care for herself at this time. She is feeling hopeless and helpless. She also is interacting minimally with others. The patient denies any thoughts of suicide, but she is feeling hopeless. Also, appetite is still poor. The patient refused to take her medications yesterday morning, but she did take it at night. Otherwise, the patient is compliant with the rest of the treatment plans. ASSESSMENT: The patient is still severely depressed. TREATMENT PLAN: Continue to monitor her behavior and her condition closely. Also, we will increase Remeron to 50 mg at bedtime and we will continue to follow up closely. [facility]# [id number]
--- NOTE | 2018-11-24 20:18 | Progress Notes ---
DATE: SUBJECTIVE: A 63-year-old female. The patient was seen and examined. The patient is lying in the bed. The patient is well known to me from her previous admissions. The patient denies any chest pain, abdominal pain, nausea, vomiting, diarrhea. PHYSICAL EXAMINATION: VITAL SIGNS: See nurse's note. HEENT: Absent upper and lower dentition noted. NECK: Supple, no JVD. HEART: Regular. CHEST AND LUNGS: Equal in expansion, with no expiratory wheezing. ABDOMEN: Soft. No guarding, no rigidity. Liver, spleen not palpable. No palpable mass. EXTREMITIES: No edema, no cyanosis. NEUROLOGIC: Alert, awake, following commands. CLINICAL IMPRESSION: 1. Hypothyroidism. 2. Chronic constipation. 3. Psychotic disorder. 4. Degenerative joint disease. 5. History of recurrent bowel obstruction. 6. Chronic obstructive pulmonary disease. PLAN: 1. Continue to provide Synthroid. 2. Nutritional support. 3. General nursing care. 4. Psych medication. 6. Psych followup. 7. Continue current medication as prescribed. 8. We will continue to follow this patient during the stay in the hospital. JOB# [id number]
--- NOTE | 2018-11-24 23:19 | Progress Notes ---
DATE: 11/23/2018 DATE OF SERVICE: 11/23/2018 SUBJECTIVE: Chart was reviewed and the patient interviewed. Also discussed the patient's condition with the staff and reviewed records and labs. The patient is extremely angry and she is severely depressed. The patient also kept asking for "my TPN." The patient is asking to get a TPN nourishment. She is still extremely feeling hopeless and helpless and she is also withdrawn. Also, poor appetite and lack of energy and lack of motivations. The patient also has crying spells. The patient seems to be slightly more cooperative in regard to her medications and her treatment and she did take her Remeron. Otherwise, the patient is still in a depressed mood. ASSESSMENT: The patient is still depressed and she is still feeling hopeless. TREATMENT PLAN: We will continue to monitor her behavior and her condition closely. Also, continue to work on adjusting psychotropic medications and also continue Remeron at a dose of 7.5 mg at bedtime and continue to follow up closely. [facility]# [id number]
[2018-11-25] MEDS: POLYETHYLENE GLYCOL 3350 17 GM PACK PO SCH (09:06)
[2018-11-25] MEDS: OLANZapine 5 mg Oral Disintegrating Tab PO SCH (09:06)
[2018-11-25] MEDS: Multivitamin Tab PO SCH (09:06)
[2018-11-25] MEDS: Lactulose 10 Gm/15 mL 30mL UDC PO SCH (09:06)
[2018-11-25] MEDS: Dicyclomine 10 mg Cap PO SCH ×3 (09:06→21:09)
[2018-11-25] MEDS: Haldol Oral Sol.(concentrate) 10 mg/5 mL Udc PO SCH ×2 (09:06→17:08)
[2018-11-25] MEDS: Levothyroxine 0.075 Mg Tab PO SCH (09:06)
--- NOTE | 2018-11-25 21:14 | Progress Notes ---
DATE: 11/25/2018 IDENTIFICATION: A 63-year-old female. SUBJECTIVE: The patient is seen and examined. OBJECTIVE: GENERAL: The patient is lying in the bed. The patient has no new complaint. VITAL SIGNS: Temperature 97.9, pulse 63, respiratory rate 18, blood pressure 100/50. HEENT: Absent upper and lower dentures noted. NECK: Supple, no JVD. HEART: Regular. LUNGS: Clear to auscultate. ABDOMEN: Soft, no guarding, no rigidity. Bowel sounds present. No palpable mass. EXTREMITIES: No edema. CLINICAL IMPRESSION: 1. Psychotic disorder. 2. Chronic constipation. 3. Hypotension. 4. Chronic obstructive pulmonary disease. 5. Degenerative joint disease. 6. History of bowel obstruction. PLAN: 1. Synthroid. 2. Anti-constipation medication. 3. Psych followup. 4. Psych medication. 5. General nursing care. 6. Nutritional support. 7. Follow lab. 8. Follow consults recommendation. 9. Care plan reviewed and discussed with staff. JOB# [id number]
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
[2018-11-26] MEDS: Dicyclomine 10 mg Cap PO SCH ×3 (08:50→21:32)
[2018-11-26] MEDS: Lactulose 10 Gm/15 mL 30mL UDC PO SCH (08:50)
[2018-11-26] MEDS: Haldol Oral Sol.(concentrate) 10 mg/5 mL Udc PO SCH ×2 (08:50→17:53)
[2018-11-26] MEDS: OLANZapine 5 mg Oral Disintegrating Tab PO SCH (08:50)
[2018-11-26] MEDS: Multivitamin Tab PO SCH (08:50)
[2018-11-26] MEDS: Levothyroxine 0.075 Mg Tab PO SCH (08:50)
[2018-11-26] MEDS: POLYETHYLENE GLYCOL 3350 17 GM PACK PO SCH (08:51)
--- NOTE | 2018-11-27 08:53 | Progress Notes ---
DATE: 11/27/2018 SUBJECTIVE: Chart was reviewed and the patient interviewed. Also discussed the patient's condition with the staff and reviewed records and labs. The patient is still anxious and still in a depressed mood. The patient also is still at times resisting care. The patient also is asking today to go home, although she was asked not to go home. She still has difficulty making decisions and she is still suspicious and paranoid. The patient also still has poor appetite and in a depressed mood, but at the same time, able to make her needs known. Today, the patient did take her medications and seems to be slightly more cooperative with her treatment. ASSESSMENT: The patient is still depressed and paranoid. TREATMENT PLAN: Continue monitoring her behavior closely and continue adjusting psychotropic medications and work on her ineffective coping and behavior modification. [facility]# [id number]
[2018-11-27] MEDS: OLANZapine 5 mg Oral Disintegrating Tab PO SCH (10:00)
[2018-11-27] MEDS: Levothyroxine 0.075 Mg Tab PO SCH (10:00)
[2018-11-27] MEDS: POLYETHYLENE GLYCOL 3350 17 GM PACK PO SCH (10:00)
[2018-11-27] MEDS: Lactulose 10 Gm/15 mL 30mL UDC PO SCH (10:00)
[2018-11-27] MEDS: Multivitamin Tab PO SCH (10:00)
[2018-11-27] MEDS: Dicyclomine 10 mg Cap PO SCH ×4 (10:00→21:49)
[2018-11-27] MEDS: Haldol Oral Sol.(concentrate) 10 mg/5 mL Udc PO SCH ×2 (10:00→17:32)
--- NOTE | 2018-11-27 20:09 | Progress Notes ---
DATE: 11/27/2018 SUBJECTIVE: Chart was reviewed and the patient interviewed. Also discussed the patient's condition with the staff and reviewed records and labs. The patient is still in a depressed mood and she is still anxious. The patient also is interacting minimally with others. The patient also is still feeling hopeless and helpless. Also, the patient is still anxious that she is doing better in regard to taking her medications and also she started to eat slightly more. She also seems to be less paranoid, less agitated and she did take her medications. ASSESSMENT: The patient is still psychotic, but less than before. TREATMENT PLAN: Continue to monitor behavior and condition closely. Also, continue adjusting psychotropic medications and work on her ineffective coping. [facility]# [id number]
--- NOTE | 2018-11-27 21:08 | Progress Notes ---
DATE: 11/27/2018 IDENTIFICATION: A 63-year-old female. SUBJECTIVE: The patient seen and examined, no new complaint. PHYSICAL EXAMINATION: VITAL SIGNS: Temperature 98.6, pulse is 64, respiratory rate 18, blood pressure 106/59. HEENT: Upper and lower dentures noted. No facial asymmetry. NECK: Supple, no JVD, no lymphadenopathy, thyromegaly. HEART: Both heart sounds are regular. CHEST: Lung equal in expansion, no expiratory wheezing. ABDOMEN: Soft, no guarding, no rigidity. Bowel sounds are present. No palpable mass. EXTREMITIES: No edema. NEUROLOGIC: Alert, awake, follows commands. Decreased power throughout the upper and lower extremity. AVAILABLE DIAGNOSTIC DATA: None for my review. CLINICAL IMPRESSION: 1. Hypothyroidism. 2. Chronic obstructive pulmonary disease. 3. Degenerative joint disease. 4. Psychotic disorder. 5. History of chronic constipation. 6. History of bowel obstruction. PLAN: Continue to provide Colace along with anti-constipation medication. Psychiatric evaluation and management deferred to psychiatrist. Continue Synthroid as prescribed. Fall precautions, nutritional support, general nursing care and we will follow this patient during the stay in the hospital. Care plan has been reviewed and discussed with staff. JOB# [id number]
--- NOTE | 2018-11-28 08:53 | Progress Notes ---
DATE: 11/28/2018 SUBJECTIVE: Chart was reviewed and the patient interviewed. Also discussed the patient's condition with the staff and reviewed records and labs. The patient seems to be calmer than before and she seems to be less irritable. She is still suspicious and paranoid and needs close monitoring. The patient also is still restless and is still showing poor appetite and some paranoia, but less than before. At the same time, we will continue monitoring behavior and continue to adjust psychotropic medications and work on behavioral modification. [facility]# [id number]
[2018-11-28] MEDS: Dicyclomine 10 mg Cap PO SCH ×4 (09:50→20:47)
[2018-11-28] MEDS: Lactulose 10 Gm/15 mL 30mL UDC PO SCH (09:51)
[2018-11-28] MEDS: Levothyroxine 0.075 Mg Tab PO SCH (09:51)
[2018-11-28] MEDS: Haldol Oral Sol.(concentrate) 10 mg/5 mL Udc PO SCH ×2 (09:51→17:01)
[2018-11-28] MEDS: OLANZapine 5 mg Oral Disintegrating Tab PO SCH (09:52)
[2018-11-28] MEDS: Multivitamin Tab PO SCH (09:52)
[2018-11-28] MEDS: POLYETHYLENE GLYCOL 3350 17 GM PACK PO SCH (09:52)
[2018-11-29] MEDS: Dicyclomine 10 mg Cap PO SCH ×3 (09:50→21:00)
[2018-11-29] MEDS: Lactulose 10 Gm/15 mL 30mL UDC PO SCH (09:50)
[2018-11-29] MEDS: Haldol Oral Sol.(concentrate) 10 mg/5 mL Udc PO SCH ×2 (09:50→17:05)
[2018-11-29] MEDS: Multivitamin Tab PO SCH (09:50)
[2018-11-29] MEDS: OLANZapine 5 mg Oral Disintegrating Tab PO SCH (09:50)
[2018-11-29] MEDS: Levothyroxine 0.075 Mg Tab PO SCH (09:50)
[2018-11-29] MEDS: POLYETHYLENE GLYCOL 3350 17 GM PACK PO SCH (10:08)
--- NOTE | 2018-11-29 11:36 | Internal Medicine Prog Note ---
Internal Medicine Subjective - Subjective Patient seen and examined:: with staff, chart reviewed Patient is:: awake, verbal, interactive Per staff patient has:: no adverse event, no episodes of fall, tolerating meds Internal Medicine Objective - Results Result Diagrams: 11/20/18 08:40 11/20/18 08:40 Recent Labs: Laboratory Last Values WBC 6.8 Th/cmm (4.8-10.8) 11/20/18 08:40 RBC 2.82 Mil/cmm (3.80-5.20) L 11/20/18 08:40 Hgb 8.7 gm/dL (12-16) L 11/20/18 08:40 Hct 26.2 % (41.0-60) L 11/20/18 08:40 MCV 92.9 fl (81-100) 11/20/18 08:40 MCH 30.9 pg (27.0-31.0) 11/20/18 08:40 MCHC Differential 33.3 pg (28.0-36.0) 11/20/18 08:40 RDW 15.1 % (11.5-20.0) 11/20/18 08:40 Plt Count 225 Th/cmm (150-400) 11/20/18 08:40 MPV 8.8 fl 11/20/18 08:40 Neutrophils % 67.3 % (40.0-80.0) 11/20/18 08:40 Lymphocytes % 17.0 % (20.0-50.0) L 11/20/18 08:40 Monocytes % 5.1 % (2.0-10.0) 11/20/18 08:40 Eosinophils % 10.1 % (0.0-5.0) H 11/20/18 08:40 Basophils % 0.5 % (0.0-2.0) 11/20/18 08:40 PT 11.6 SECONDS (9.5-11.5) H 11/20/18 08:40 INR 1.13 (0.5-1.4) 11/20/18 08:40 PTT (Actin FS) 28.8 SECONDS (26.0-38.0) 11/20/18 08:40 Sodium 136 mEq/L (136-145) 11/20/18 08:40 Potassium 4.0 mEq/L (3.5-5.1) 11/20/18 08:40 Chloride 99 mEq/L (98-107) 11/20/18 08:40 Carbon Dioxide 23.7 mEq/L (21.0-31.0) 11/20/18 08:40 Anion Gap 17.3 (7.0-16.0) H 11/20/18 08:40 BUN 35 mg/dL (7-25) H 11/20/18 08:40 Creatinine 3.1 mg/dL (0.6-1.2) H 11/20/18 08:40 Est GFR ( Amer) 19.4 ml/min (>90) 11/20/18 08:40 Est GFR (Non-Af Amer) 16.0 ml/min 11/20/18 08:40 BUN/Creatinine Ratio 11.3 11/20/18 08:40 Glucose 73 mg/dL (70-105) 11/20/18 08:40 Calcium 9.4 mg/dL (8.6-10.3) 11/20/18 08:40 Total Bilirubin 0.5 mg/dL (0.3-1.0) 11/20/18 08:40 AST 16 U/L (13-39) 11/20/18 08:40 ALT 7 U/L (7-52) 11/20/18 08:40 Alkaline Phosphatase 86 U/L (34-104) 11/20/18 08:40 Troponin I 0.02 ng/mL (0.01-0.05) 11/20/18 08:40 Total Protein 8.3 gm/dL (6.0-8.3) 11/20/18 08:40 Albumin 4.3 gm/dL (3.7-5.3) 11/20/18 08:40 Globulin 4.0 gm/dL 11/20/18 08:40 Albumin/Globulin Ratio 1.1 (1.0-1.8) 11/20/18 08:40 Triglycerides 67 mg/dL (<150) 11/21/18 06:14 Cholesterol 151 mg/dL (<200) 11/21/18 06:14 LDL Cholesterol Direct 82 mg/dL (75-193) 11/21/18 06:14 HDL Cholesterol 65 mg/dL (23-92) 11/21/18 06:14 TSH 1.57 uIU/ml (0.34-5.60) 11/20/18 08:40 Urine Source CLEAN C 11/20/18 09:50 Urine Color YELLOW 11/20/18 09:50 Urine Clarity CLEAR (CLEAR) 11/20/18 09:50 Urine pH 6.0 (4.6 - 8.0) 11/20/18 09:50 Ur Specific [place] 1.025 (1.005-1.030) 11/20/18 09:50 Urine Protein NEGATIVE mg/dL (NEGATIVE) 11/20/18 09:50 Urine Glucose (UA) NEGATIVE mg/dL (NEGATIVE) 11/20/18 09:50 Urine Ketones NEGATIVE mg/dL (NEGATIVE) 11/20/18 09:50 Urine Blood MODERATE (NEGATIVE) H 11/20/18 09:50 Urine Nitrate NEGATIVE (NEGATIVE) 11/20/18 09:50 Urine Bilirubin NEGATIVE (NEGATIVE) 11/20/18 09:50 Urine Urobilinogen 0.2 E.U./dL (0.2 - 1.0) 11/20/18 09:50 Ur Leukocyte Esterase NEGATIVE (NEGATIVE) 11/20/18 09:50 Urine RBC 2-5 /hpf (0-5) 11/20/18 09:50 Urine WBC 0-2 /hpf (0-5) 11/20/18 09:50 Ur Epithelial Cells FEW /lpf (FEW) 11/20/18 09:50 Urine Bacteria NONE SEEN /hpf (NONE SEEN) 11/20/18 09:50 - Physical Exam Vitals and I&O: Vital Signs Temp 97.4 F 11/29/18 06:29 Pulse 63 11/29/18 06:29 Resp 18 11/29/18 08:00 BP 96/68 11/29/18 06:29 Pulse Ox 97 11/29/18 06:29 Intake & Output 11/28/18 11/29/18 11/29/18 18:59 06:59 18:59 Intake Total 240 120 Balance 240 120 Intake: Oral 240 120 Other: # Voids 3 3 # Bowel Movements 0 Active Medications: Current Medications Acetaminophen (Tylenol) 650 mg PO Q4HR PRN PRN Reason: Mild Pain / Temp above 100 Stop: 01/20/19 05:59 Al Hydrox/Mg Hydrox/Simethicone (Maalox) 30 ml PO Q4H PRN PRN Reason: GI DISTRESS Stop: 01/20/19 13:27 Dicyclomine HCl (Bentyl) 20 mg PO TID MELANIE Stop: 01/20/19 13:59 Last Admin: 11/29/18 09:50 Dose: 20 mg Docusate Sodium (Colace) 100 mg PO BID MELANIE Stop: 01/20/19 16:59 Last Admin: 11/29/18 09:50 Dose: 100 mg Haloperidol Decanoate (Haldol Dec) 25 mg IM QMONTH MELANIE; Protocol Stop: 01/28/19 11:59 Haloperidol Lactate (Haldol Concentrate 10mg/5ml Susp) 5 mg PO BID MELANIE; Protocol Stop: 01/24/19 08:59 Last Admin: 11/29/18 09:50 Dose: 5 mg Lactulose (Cephulac) 30 gm PO DAILY MELANIE Stop: 01/21/19 08:59 Last Admin: 11/29/18 09:50 Dose: 30 gm Levothyroxine Sodium (Synthroid) 0.15 mg PO DAILY MELANIE Stop: 01/21/19 08:59 Last Admin: 11/29/18 09:50 Dose: 0.15 mg Magnesium Hydroxide (Milk Of Magnesia) 30 ml PO HS PRN PRN Reason: Constipation Magnesium Hydroxide (Milk Of Magnesia) 30 ml PO DAILY PRN PRN Reason: Constipation Stop: 01/20/19 13:27 Mirtazapine (Remeron) 15 mg PO HS MELANIE; Protocol Stop: 01/23/19 20:59 Last Admin: 11/28/18 20:47 Dose: Not Given Multivitamins/Vitamin C (Theragran) 1 tab PO DAILY MELANIE Stop: 01/20/19 08:59 Last Admin: 11/29/18 09:50 Dose: 1 tab Olanzapine (Zyprexa Zydis) 5 mg PO DAILY MELANIE; Protocol Stop: 01/23/19 08:59 Last Admin: 11/29/18 09:50 Dose: 5 mg Ondansetron HCl (Zofran Odt) 4 mg PO Q6H PRN PRN Reason: NQAUSEA Stop: 01/20/19 14:12 Polyethylene Glycol (Miralax) 17 gm PO DAILY MELANIE Stop: 01/21/19 08:59 Last Admin: 11/29/18 10:08 Dose: Not Given General: alert HEENT: NC/AT, PERRLA Neck: Supple Lungs: CTAB Cardiovascular: RRR, Normal S1, Normal S2, without murmur Abdomen: soft, non-tender, non-distended, positive bowel sound Extremities: excoriation Neurological: alert - Procedures Procedures: Procedures Procedure Code Date OTHER GROUP THERAPY 94.44 01/13/11 RECREATIONAL THERAPY 93.81 01/13/11 Internal Medicine Assmt/Plan - Assessment Assessment: - Assessment Assessment: Asthma COPD Dyslipidemia hypohyroid Dementia - Plan Plan: - Plan Plan: fall precautions cont home meds continue current plan of care meds reviewed dw staff Nutritional Asmnt/Malnutr-PDOC - Dietary Evaluation Malnutrition Findings (Please click <Entered> for more info): Nutritional Asmnt/Malnutrition Start: 11/22/18 08: 46 Text: Status: Active Freq: Protocol: Document 11/22/18 14:26 RAOUL (Rec: 11/22/18 14:31 RAOUL [id number]) Nutritional Asmnt/Malnutrition Patient General Information Nutritional Screening High Risk Consult Diagnosis Schizophrenia Pertinent Medical Hx/Surgical Hx Asthma/COPD, Dyslipidemia, Thyroid disorder, Dementia, Depression, Schizophrenia, dysphagia with G-tube, DJD Subjective Information Consult, received 11/21: Poor PO intakes Pt is a 63-year-old female admitted on 11/20 bib Pts son for evaluation, Pt has been depressed with occasional mood swings. Son stated to hospital personnel that Pt has been refusing to eat and had TPN via PICC line prior to admission. Per RN note (11/20) Pt was given a sandwich, 3 juices, and chocolate pudding and ate it all. Spoke with RNNita, she stated the Pt requested soup and was more compliant in eating once given soup. RN stated she drank her Ensure today and is requesting soup with every meal. Recommended to RN to contact Md regarding GFR and BUN/Cr, if Pt should be placed on a renal diet. RN stated the Pt was going to have a kidney ultrasound and would contact MD regarding diet order (completed). Recommend switching Ensure Enlive to Suplena pending ultrasound results. HT: 57 WT: 102 LB (46.36 kg) BMI: 15.98 (Underweight) GI: Not noted BM: Not noted I/O: 920/Not Noted Skin: Not noted Tommy: 19 Diet Order: Renal, chopped, Ensure Enlive 4x day Estimated Energy Needs: ( Underweight, Renal, CBW) 5661-7414 kcals (30-35 kcals/ kg) 28-35g Pro (0.6-0.75 g/kg) Per Current Diet Order/ Nutrition Support Renal, chopped, Ensure Enlive 4x day Pertinent Medications Maalox (PRN0, Colace, Cephulac , Synthroid, MOM (PRN), Theregran, Zofran (PRN), Miralax Pertinent Labs 11/20: Hgb/Hct 8.7/26.2, BUN/ Cr 35/3.1, GFR 19.4 Nutritional Hx/Data Height 1.7 m Height (Calculated Centimeters) 170.2 Current Weight (lbs) 46.266 kg Weight (Calculated Kilograms) 46.3 Weight (Calculated Grams) 82716.4 [place] Body Weight 135 LB (61.36kg) % [place] Body Weight 76 Body Mass Index (BMI) 16.0 Weight Status Underweight GI Symptoms Last BM Not noted Skin Integrity/Comment: Claudia Russo Estimated Nutritional Goals BEE in Kcals: Using Current wt Calories/Kcals/Kg 30-35 Kcals Calculated 2944-7492 Protein: Using Current wt Protein g/k.6-0.75 Protein Calculated 28-35 Fluid: ml Per MD Nutritional Problem 2. Problem Problem Underweight Etiology r/t possible poor appetite/ psychosis Signs/Symptoms: aeb Pt refusal to eat at times . 1. Problem Problem Altered nutrition related labs Etiology r/t pathophysiological causes Signs/Symptoms: aeb BUN/ Cr 35/3.1, GFR 19.4. Malnutrition Related to Morbid Obesity Malnutrition related to morbid obesity No Intervention/Recommendation Recommendations by RD Increase Calorie Intake Comments 1. Continue with Renal, chopped diet as ordered. 2. Recommend switching Ensure Enlive to Suplena pending ultrasound results and kidney related labs. 3. RN to encourage improved PO intake. Expected Outcomes/Goals Expected Outcomes/Goals 1. PO intake to meet 75% of nutritional needs. 2. Monitor PO intake, skin integrity, and nutrition related labs to trend WNL. 3 .Weight to trend towards IBW in 3-5 days. 4 .F/U as moderate risk in 7 days, 11/25-11/27
--- NOTE | 2018-11-29 12:48 | Progress Notes ---
DATE: PSYCHIATRIC PROGRESS NOTE SUBJECTIVE: Chart was reviewed and the patient interviewed. Also discussed the patient's condition with the staff and reviewed records and labs. The patient is still in a depressed mood and she is still angry. The patient also is still suspicious and paranoid and still needs lots of redirections. The patient also is demanding and she is also asking for a certain diet, which she is asking for solid foods and diet consult was done and the patient to take only liquid diet, but the patient is disagreeable for that. The patient also is refusing to take her psychotropic medications and she is still actively psychotic. Historically, the patient was doing well on Haldol Decanoate injection. Then she was more compliant with the medications and then was stopped the Haldol Decanoate. At this time, she is back to being noncompliant with taking medications even through the G-tube, which she does not allow staff to do so. ASSESSMENT: The patient is still anxious and is still depressed and irritable mood. TREATMENT PLAN: We will continue to monitor her behavior and her condition closely. Also, we will start Haldol Decanoate injection 25 mg per mL every month. Also encouraged the patient to take her medications and to follow up with a program in order to keep her going. She also is angry with her son and she is "not my caregiver." She still has severe mood swings and difficulty making up her mind. [facility]# [id number]
[2018-11-30] MEDS: Dicyclomine 10 mg Cap PO SCH ×3 (08:10→20:30)
[2018-11-30] MEDS: Haldol Oral Sol.(concentrate) 10 mg/5 mL Udc PO SCH ×2 (08:10→17:08)
[2018-11-30] MEDS: OLANZapine 5 mg Oral Disintegrating Tab PO SCH (08:10)
[2018-11-30] MEDS: Multivitamin Tab PO SCH (08:10)
[2018-11-30] MEDS: POLYETHYLENE GLYCOL 3350 17 GM PACK PO SCH (08:10)
[2018-11-30] MEDS: Levothyroxine 0.075 Mg Tab PO SCH (08:10)
[2018-11-30] MEDS: Lactulose 10 Gm/15 mL 30mL UDC PO SCH (08:11)
--- NOTE | 2018-11-30 12:12 | Internal Medicine Prog Note ---
Internal Medicine Subjective - Subjective Patient seen and examined:: with staff, chart reviewed Patient is:: awake, verbal, interactive Per staff patient has:: no adverse event, no episodes of fall, tolerating meds Internal Medicine Objective - Results Result Diagrams: 11/20/18 08:40 11/20/18 08:40 Recent Labs: Laboratory Last Values WBC 6.8 Th/cmm (4.8-10.8) 11/20/18 08:40 RBC 2.82 Mil/cmm (3.80-5.20) L 11/20/18 08:40 Hgb 8.7 gm/dL (12-16) L 11/20/18 08:40 Hct 26.2 % (41.0-60) L 11/20/18 08:40 MCV 92.9 fl (81-100) 11/20/18 08:40 MCH 30.9 pg (27.0-31.0) 11/20/18 08:40 MCHC Differential 33.3 pg (28.0-36.0) 11/20/18 08:40 RDW 15.1 % (11.5-20.0) 11/20/18 08:40 Plt Count 225 Th/cmm (150-400) 11/20/18 08:40 MPV 8.8 fl 11/20/18 08:40 Neutrophils % 67.3 % (40.0-80.0) 11/20/18 08:40 Lymphocytes % 17.0 % (20.0-50.0) L 11/20/18 08:40 Monocytes % 5.1 % (2.0-10.0) 11/20/18 08:40 Eosinophils % 10.1 % (0.0-5.0) H 11/20/18 08:40 Basophils % 0.5 % (0.0-2.0) 11/20/18 08:40 PT 11.6 SECONDS (9.5-11.5) H 11/20/18 08:40 INR 1.13 (0.5-1.4) 11/20/18 08:40 PTT (Actin FS) 28.8 SECONDS (26.0-38.0) 11/20/18 08:40 Sodium 136 mEq/L (136-145) 11/20/18 08:40 Potassium 4.0 mEq/L (3.5-5.1) 11/20/18 08:40 Chloride 99 mEq/L (98-107) 11/20/18 08:40 Carbon Dioxide 23.7 mEq/L (21.0-31.0) 11/20/18 08:40 Anion Gap 17.3 (7.0-16.0) H 11/20/18 08:40 BUN 35 mg/dL (7-25) H 11/20/18 08:40 Creatinine 3.1 mg/dL (0.6-1.2) H 11/20/18 08:40 Est GFR ( Amer) 19.4 ml/min (>90) 11/20/18 08:40 Est GFR (Non-Af Amer) 16.0 ml/min 11/20/18 08:40 BUN/Creatinine Ratio 11.3 11/20/18 08:40 Glucose 73 mg/dL (70-105) 11/20/18 08:40 Calcium 9.4 mg/dL (8.6-10.3) 11/20/18 08:40 Total Bilirubin 0.5 mg/dL (0.3-1.0) 11/20/18 08:40 AST 16 U/L (13-39) 11/20/18 08:40 ALT 7 U/L (7-52) 11/20/18 08:40 Alkaline Phosphatase 86 U/L (34-104) 11/20/18 08:40 Troponin I 0.02 ng/mL (0.01-0.05) 11/20/18 08:40 Total Protein 8.3 gm/dL (6.0-8.3) 11/20/18 08:40 Albumin 4.3 gm/dL (3.7-5.3) 11/20/18 08:40 Globulin 4.0 gm/dL 11/20/18 08:40 Albumin/Globulin Ratio 1.1 (1.0-1.8) 11/20/18 08:40 Triglycerides 67 mg/dL (<150) 11/21/18 06:14 Cholesterol 151 mg/dL (<200) 11/21/18 06:14 LDL Cholesterol Direct 82 mg/dL (75-193) 11/21/18 06:14 HDL Cholesterol 65 mg/dL (23-92) 11/21/18 06:14 TSH 1.57 uIU/ml (0.34-5.60) 11/20/18 08:40 Urine Source CLEAN C 11/20/18 09:50 Urine Color YELLOW 11/20/18 09:50 Urine Clarity CLEAR (CLEAR) 11/20/18 09:50 Urine pH 6.0 (4.6 - 8.0) 11/20/18 09:50 Ur Specific [place] 1.025 (1.005-1.030) 11/20/18 09:50 Urine Protein NEGATIVE mg/dL (NEGATIVE) 11/20/18 09:50 Urine Glucose (UA) NEGATIVE mg/dL (NEGATIVE) 11/20/18 09:50 Urine Ketones NEGATIVE mg/dL (NEGATIVE) 11/20/18 09:50 Urine Blood MODERATE (NEGATIVE) H 11/20/18 09:50 Urine Nitrate NEGATIVE (NEGATIVE) 11/20/18 09:50 Urine Bilirubin NEGATIVE (NEGATIVE) 11/20/18 09:50 Urine Urobilinogen 0.2 E.U./dL (0.2 - 1.0) 11/20/18 09:50 Ur Leukocyte Esterase NEGATIVE (NEGATIVE) 11/20/18 09:50 Urine RBC 2-5 /hpf (0-5) 11/20/18 09:50 Urine WBC 0-2 /hpf (0-5) 11/20/18 09:50 Ur Epithelial Cells FEW /lpf (FEW) 11/20/18 09:50 Urine Bacteria NONE SEEN /hpf (NONE SEEN) 11/20/18 09:50 - Physical Exam Vitals and I&O: Vital Signs Temp 98.9 F 11/30/18 06:17 Pulse 105 11/30/18 06:17 Resp 18 11/30/18 07:52 BP 99/73 11/30/18 06:17 Pulse Ox 98 11/30/18 06:17 Intake & Output 11/29/18 11/30/18 11/30/18 18:59 06:59 18:59 Intake Total 950 240 Balance 950 240 Intake: Oral 950 240 Other: # Voids 3 3 # Bowel Movements 1 0 Active Medications: Current Medications Acetaminophen (Tylenol) 650 mg PO Q4HR PRN PRN Reason: Mild Pain / Temp above 100 Stop: 01/20/19 05:59 Al Hydrox/Mg Hydrox/Simethicone (Maalox) 30 ml PO Q4H PRN PRN Reason: GI DISTRESS Stop: 01/20/19 13:27 Dicyclomine HCl (Bentyl) 20 mg PO TID MEALNIE Stop: 01/20/19 13:59 Last Admin: 11/30/18 08:10 Dose: 20 mg Docusate Sodium (Colace) 100 mg PO BID MELANIE Stop: 01/20/19 16:59 Last Admin: 11/30/18 08:10 Dose: 100 mg Haloperidol Decanoate (Haldol Dec) 25 mg IM QMONTH MELANIE; Protocol Stop: 01/28/19 11:59 Last Admin: 11/29/18 15:14 Dose: 25 mg Haloperidol Lactate (Haldol Concentrate 10mg/5ml Susp) 5 mg PO BID MELANIE; Protocol Stop: 01/24/19 08:59 Last Admin: 11/30/18 08:10 Dose: 5 mg Lactulose (Cephulac) 30 gm PO DAILY MELANIE Stop: 01/21/19 08:59 Last Admin: 11/30/18 08:11 Dose: 30 gm Levothyroxine Sodium (Synthroid) 0.15 mg PO DAILY MELANIE Stop: 01/21/19 08:59 Last Admin: 11/30/18 08:10 Dose: 0.15 mg Magnesium Hydroxide (Milk Of Magnesia) 30 ml PO HS PRN PRN Reason: Constipation Magnesium Hydroxide (Milk Of Magnesia) 30 ml PO DAILY PRN PRN Reason: Constipation Stop: 01/20/19 13:27 Mirtazapine (Remeron) 15 mg PO HS MELANIE; Protocol Stop: 01/23/19 20:59 Last Admin: 11/29/18 21:00 Dose: 15 mg Multivitamins/Vitamin C (Theragran) 1 tab PO DAILY MELANIE Stop: 01/20/19 08:59 Last Admin: 11/30/18 08:10 Dose: 1 tab Olanzapine (Zyprexa Zydis) 5 mg PO DAILY MELANIE; Protocol Stop: 01/23/19 08:59 Last Admin: 11/30/18 08:10 Dose: 5 mg Ondansetron HCl (Zofran Odt) 4 mg PO Q6H PRN PRN Reason: NQAUSEA Stop: 01/20/19 14:12 Polyethylene Glycol (Miralax) 17 gm PO DAILY MELANIE Stop: 01/21/19 08:59 Last Admin: 11/30/18 08:10 Dose: 17 gm General: alert HEENT: NC/AT, PERRLA Neck: Supple Lungs: CTAB Cardiovascular: RRR, Normal S1, Normal S2, without murmur Abdomen: soft, non-tender, non-distended, positive bowel sound Extremities: excoriation Neurological: alert - Procedures Procedures: Procedures Procedure Code Date OTHER GROUP THERAPY 94.44 01/13/11 RECREATIONAL THERAPY 93.81 01/13/11 Internal Medicine Assmt/Plan - Assessment Assessment: - Assessment Assessment: Asthma COPD Dyslipidemia hypohyroid Dementia - Plan Plan: - Plan Plan: fall precautions cont home meds continue current plan of care meds reviewed dw staff Nutritional Asmnt/Malnutr-PDOC - Dietary Evaluation Malnutrition Findings (Please click <Entered> for more info): Nutritional Asmnt/Malnutrition Start: 11/22/18 08: 46 Text: Status: Active Freq: Protocol: Document 11/22/18 14:26 RAOUL (Rec: 11/22/18 14:31 RAOUL [id number]) Nutritional Asmnt/Malnutrition Patient General Information Nutritional Screening High Risk Consult Diagnosis Schizophrenia Pertinent Medical Hx/Surgical Hx Asthma/COPD, Dyslipidemia, Thyroid disorder, Dementia, Depression, Schizophrenia, dysphagia with G-tube, DJD Subjective Information Consult, received 11/21: Poor PO intakes Pt is a 63-year-old female admitted on 11/20 bib Pts son for evaluation, Pt has been depressed with occasional mood swings. Son stated to hospital personnel that Pt has been refusing to eat and had TPN via PICC line prior to admission. Per RN note (11/20) Pt was given a sandwich, 3 juices, and chocolate pudding and ate it all. Spoke with RNNita, she stated the Pt requested soup and was more compliant in eating once given soup. RN stated she drank her Ensure today and is requesting soup with every meal. Recommended to RN to contact Md regarding GFR and BUN/Cr, if Pt should be placed on a renal diet. RN stated the Pt was going to have a kidney ultrasound and would contact MD regarding diet order (completed). Recommend switching Ensure Enlive to Suplena pending ultrasound results. HT: 57 WT: 102 LB (46.36 kg) BMI: 15.98 (Underweight) GI: Not noted BM: Not noted I/O: 920/Not Noted Skin: Not noted Tommy: Rafaela Diet Order: Renal, chopped, Ensure Enlive 4x day Estimated Energy Needs: ( Underweight, Renal, CBW) 3747-8754 kcals (30-35 kcals/ kg) 28-35g Pro (0.6-0.75 g/kg) Per MD Current Diet Order/ Nutrition Support Renal, chopped, Ensure Enlive 4x day Pertinent Medications Maalox (PRN0, Colace, Cephulac , Synthroid, MOM (PRN), Theregran, Zofran (PRN), Miralax Pertinent Labs 11/20: Hgb/Hct 8.7/26.2, BUN/ Cr 35/3.1, GFR 19.4 Nutritional Hx/Data Height 1.7 m Height (Calculated Centimeters) 170.2 Current Weight (lbs) 46.266 kg Weight (Calculated Kilograms) 46.3 Weight (Calculated Grams) 78484.4 [place] Body Weight 135 LB (61.36kg) % [place] Body Weight 76 Body Mass Index (BMI) 16.0 Weight Status Underweight GI Symptoms Last BM Not noted Skin Integrity/Comment: Tommy: Rafaela Estimated Nutritional Goals BEE in Kcals: Using Current wt Calories/Kcals/Kg 30-35 Kcals Calculated 4152-9565 Protein: Using Current wt Protein g/k.6-0.75 Protein Calculated 28-35 Fluid: ml Per MD Nutritional Problem 2. Problem Problem Underweight Etiology r/t possible poor appetite/ psychosis Signs/Symptoms: aeb Pt refusal to eat at times . 1. Problem Problem Altered nutrition related labs Etiology r/t pathophysiological causes Signs/Symptoms: aeb BUN/ Cr 35/3.1, GFR 19.4. Malnutrition Related to Morbid Obesity Malnutrition related to morbid obesity No Intervention/Recommendation Recommendations by RD Increase Calorie Intake Comments 1. Continue with Renal, chopped diet as ordered. 2. Recommend switching Ensure Enlive to Suplena pending ultrasound results and kidney related labs. 3. RN to encourage improved PO intake. Expected Outcomes/Goals Expected Outcomes/Goals 1. PO intake to meet 75% of nutritional needs. 2. Monitor PO intake, skin integrity, and nutrition related labs to trend WNL. 3 .Weight to trend towards IBW in 3-5 days. 4 .F/U as moderate risk in 7 days, 8/8-11/27
--- NOTE | 2018-11-30 20:33 | Progress Notes ---
DATE: 11/30/[address] Serrano. This is a 63-year-old female who was admitted on 11/20/2018 because of being paranoid, depressed, has been seen by Dr. Serrano for years. The patient has not been eating, losing a lot of weight. Medical workup was normal. Her son has been concerned about her condition and duration of her condition, brought to the hospital. The patient is feeling hopeless and helpless, paranoid with long history of schizoaffective disorder. She also has bronchial asthma, COPD, hypothyroidism, dyslipidemia. The patient lives with her son. The patient continues to have episodes of being angry, suspicious, paranoid, needing redirection, demanding certain diet, solid food. A diet consult was ordered by Dr. Serrano, refusing to take psychotropic medication. She is still actively psychotic. She did well on Haldol Decanoate injection. She was more compliant and then she stopped it. The patient was started yesterday on Haldol Decanoate by Dr. Serrano 25 mg IM with no side effects, no sedation, no nausea. She is also on Zyprexa 5 mg daily and Remeron 15 mg at bedtime. We will continue outpatient group therapy, milieu therapy, adjust the medication as needed. [facility]# [id number]
[2018-12-01] MEDS: Haldol Oral Sol.(concentrate) 10 mg/5 mL Udc PO SCH ×2 (08:58→16:12)
[2018-12-01] MEDS: POLYETHYLENE GLYCOL 3350 17 GM PACK PO SCH (08:59)
[2018-12-01] MEDS: Lactulose 10 Gm/15 mL 30mL UDC PO SCH (08:59)
[2018-12-01] MEDS: Multivitamin Tab PO SCH (09:00)
[2018-12-01] MEDS: OLANZapine 5 mg Oral Disintegrating Tab PO SCH (09:01)
[2018-12-01] MEDS: Dicyclomine 10 mg Cap PO SCH ×3 (09:01→21:27)
[2018-12-01] MEDS: Levothyroxine 0.075 Mg Tab PO SCH (09:09)
--- NOTE | 2018-12-01 14:40 | Internal Medicine Prog Note ---
Internal Medicine Subjective - Subjective Patient seen and examined:: with staff, chart reviewed Patient is:: awake, verbal, interactive Per staff patient has:: no adverse event, no episodes of fall, tolerating meds Internal Medicine Objective - Results Result Diagrams: 11/20/18 08:40 11/20/18 08:40 Recent Labs: Laboratory Last Values WBC 6.8 Th/cmm (4.8-10.8) 11/20/18 08:40 RBC 2.82 Mil/cmm (3.80-5.20) L 11/20/18 08:40 Hgb 8.7 gm/dL (12-16) L 11/20/18 08:40 Hct 26.2 % (41.0-60) L 11/20/18 08:40 MCV 92.9 fl (81-100) 11/20/18 08:40 MCH 30.9 pg (27.0-31.0) 11/20/18 08:40 MCHC Differential 33.3 pg (28.0-36.0) 11/20/18 08:40 RDW 15.1 % (11.5-20.0) 11/20/18 08:40 Plt Count 225 Th/cmm (150-400) 11/20/18 08:40 MPV 8.8 fl 11/20/18 08:40 Neutrophils % 67.3 % (40.0-80.0) 11/20/18 08:40 Lymphocytes % 17.0 % (20.0-50.0) L 11/20/18 08:40 Monocytes % 5.1 % (2.0-10.0) 11/20/18 08:40 Eosinophils % 10.1 % (0.0-5.0) H 11/20/18 08:40 Basophils % 0.5 % (0.0-2.0) 11/20/18 08:40 PT 11.6 SECONDS (9.5-11.5) H 11/20/18 08:40 INR 1.13 (0.5-1.4) 11/20/18 08:40 PTT (Actin FS) 28.8 SECONDS (26.0-38.0) 11/20/18 08:40 Sodium 136 mEq/L (136-145) 11/20/18 08:40 Potassium 4.0 mEq/L (3.5-5.1) 11/20/18 08:40 Chloride 99 mEq/L (98-107) 11/20/18 08:40 Carbon Dioxide 23.7 mEq/L (21.0-31.0) 11/20/18 08:40 Anion Gap 17.3 (7.0-16.0) H 11/20/18 08:40 BUN 35 mg/dL (7-25) H 11/20/18 08:40 Creatinine 3.1 mg/dL (0.6-1.2) H 11/20/18 08:40 Est GFR ( Amer) 19.4 ml/min (>90) 11/20/18 08:40 Est GFR (Non-Af Amer) 16.0 ml/min 11/20/18 08:40 BUN/Creatinine Ratio 11.3 11/20/18 08:40 Glucose 73 mg/dL (70-105) 11/20/18 08:40 Calcium 9.4 mg/dL (8.6-10.3) 11/20/18 08:40 Total Bilirubin 0.5 mg/dL (0.3-1.0) 11/20/18 08:40 AST 16 U/L (13-39) 11/20/18 08:40 ALT 7 U/L (7-52) 11/20/18 08:40 Alkaline Phosphatase 86 U/L (34-104) 11/20/18 08:40 Troponin I 0.02 ng/mL (0.01-0.05) 11/20/18 08:40 Total Protein 8.3 gm/dL (6.0-8.3) 11/20/18 08:40 Albumin 4.3 gm/dL (3.7-5.3) 11/20/18 08:40 Globulin 4.0 gm/dL 11/20/18 08:40 Albumin/Globulin Ratio 1.1 (1.0-1.8) 11/20/18 08:40 Triglycerides 67 mg/dL (<150) 11/21/18 06:14 Cholesterol 151 mg/dL (<200) 11/21/18 06:14 LDL Cholesterol Direct 82 mg/dL (75-193) 11/21/18 06:14 HDL Cholesterol 65 mg/dL (23-92) 11/21/18 06:14 TSH 1.57 uIU/ml (0.34-5.60) 11/20/18 08:40 Urine Source CLEAN C 11/20/18 09:50 Urine Color YELLOW 11/20/18 09:50 Urine Clarity CLEAR (CLEAR) 11/20/18 09:50 Urine pH 6.0 (4.6 - 8.0) 11/20/18 09:50 Ur Specific [place] 1.025 (1.005-1.030) 11/20/18 09:50 Urine Protein NEGATIVE mg/dL (NEGATIVE) 11/20/18 09:50 Urine Glucose (UA) NEGATIVE mg/dL (NEGATIVE) 11/20/18 09:50 Urine Ketones NEGATIVE mg/dL (NEGATIVE) 11/20/18 09:50 Urine Blood MODERATE (NEGATIVE) H 11/20/18 09:50 Urine Nitrate NEGATIVE (NEGATIVE) 11/20/18 09:50 Urine Bilirubin NEGATIVE (NEGATIVE) 11/20/18 09:50 Urine Urobilinogen 0.2 E.U./dL (0.2 - 1.0) 11/20/18 09:50 Ur Leukocyte Esterase NEGATIVE (NEGATIVE) 11/20/18 09:50 Urine RBC 2-5 /hpf (0-5) 11/20/18 09:50 Urine WBC 0-2 /hpf (0-5) 11/20/18 09:50 Ur Epithelial Cells FEW /lpf (FEW) 11/20/18 09:50 Urine Bacteria NONE SEEN /hpf (NONE SEEN) 11/20/18 09:50 - Physical Exam Vitals and I&O: Vital Signs Temp 98.9 F 12/01/18 06:00 Pulse 64 12/01/18 06:00 Resp 17 12/01/18 08:00 BP 98/54 12/01/18 06:00 Pulse Ox 98 12/01/18 06:00 Intake & Output 11/30/18 12/01/18 12/01/18 18:59 06:59 18:59 Intake Total 700 120 Balance 700 120 Intake: Oral 700 120 Other: # Voids 3 3 # Bowel Movements 0 0 Active Medications: Current Medications Acetaminophen (Tylenol) 650 mg PO Q4HR PRN PRN Reason: Mild Pain / Temp above 100 Stop: 01/20/19 05:59 Al Hydrox/Mg Hydrox/Simethicone (Maalox) 30 ml PO Q4H PRN PRN Reason: GI DISTRESS Stop: 01/20/19 13:27 Dicyclomine HCl (Bentyl) 20 mg PO TID MELANIE Stop: 01/20/19 13:59 Last Admin: 12/01/18 09:01 Dose: 20 mg Docusate Sodium (Colace) 100 mg PO BID MELANIE Stop: 01/20/19 16:59 Last Admin: 12/01/18 09:00 Dose: 100 mg Haloperidol Decanoate (Haldol Dec) 25 mg IM QMONTH MELANIE; Protocol Stop: 01/28/19 11:59 Last Admin: 11/29/18 15:14 Dose: 25 mg Haloperidol Lactate (Haldol Concentrate 10mg/5ml Susp) 5 mg PO BID MELANIE; Protocol Stop: 01/24/19 08:59 Last Admin: 12/01/18 08:58 Dose: 5 mg Lactulose (Cephulac) 30 gm PO DAILY MELANIE Stop: 01/21/19 08:59 Last Admin: 12/01/18 08:59 Dose: 30 gm Levothyroxine Sodium (Synthroid) 0.15 mg PO DAILY MELANIE Stop: 01/21/19 08:59 Last Admin: 12/01/18 09:09 Dose: 0.15 mg Magnesium Hydroxide (Milk Of Magnesia) 30 ml PO HS PRN PRN Reason: Constipation Magnesium Hydroxide (Milk Of Magnesia) 30 ml PO DAILY PRN PRN Reason: Constipation Stop: 01/20/19 13:27 Mirtazapine (Remeron) 15 mg PO HS MELANIE; Protocol Stop: 01/23/19 20:59 Last Admin: 11/30/18 20:30 Dose: 15 mg Multivitamins/Vitamin C (Theragran) 1 tab PO DAILY MELANIE Stop: 01/20/19 08:59 Last Admin: 12/01/18 09:00 Dose: 1 tab Olanzapine (Zyprexa Zydis) 5 mg PO DAILY MELANIE; Protocol Stop: 01/23/19 08:59 Last Admin: 12/01/18 09:01 Dose: 5 mg Ondansetron HCl (Zofran Odt) 4 mg PO Q6H PRN PRN Reason: NQAUSEA Stop: 01/20/19 14:12 Polyethylene Glycol (Miralax) 17 gm PO DAILY MELANIE Stop: 01/21/19 08:59 Last Admin: 12/01/18 08:59 Dose: 17 gm General: alert HEENT: NC/AT, PERRLA Neck: Supple Lungs: CTAB Cardiovascular: RRR, Normal S1, Normal S2, without murmur Abdomen: soft, non-tender, non-distended, positive bowel sound Extremities: excoriation Neurological: alert - Procedures Procedures: Procedures Procedure Code Date OTHER GROUP THERAPY 94.44 01/13/11 RECREATIONAL THERAPY 93.81 01/13/11 Internal Medicine Assmt/Plan - Assessment Assessment: - Assessment Assessment: Asthma COPD Dyslipidemia hypohyroid Dementia - Plan Plan: - Plan Plan: fall precautions cont home meds continue current plan of care meds reviewed dw staff Nutritional Asmnt/Malnutr-PDOC - Dietary Evaluation Malnutrition Findings (Please click <Entered> for more info): Nutritional Asmnt/Malnutrition Start: 11/22/18 08: 46 Text: Status: Active Freq: Protocol: Document 11/22/18 14:26 RAOUL (Rec: 11/22/18 14:31 RAOUL [id number]) Nutritional Asmnt/Malnutrition Patient General Information Nutritional Screening High Risk Consult Diagnosis Schizophrenia Pertinent Medical Hx/Surgical Hx Asthma/COPD, Dyslipidemia, Thyroid disorder, Dementia, Depression, Schizophrenia, dysphagia with G-tube, DJD Subjective Information Consult, received 11/21: Poor PO intakes Pt is a 63-year-old female admitted on 11/20 bib Pts son for evaluation, Pt has been depressed with occasional mood swings. Son stated to hospital personnel that Pt has been refusing to eat and had TPN via PICC line prior to admission. Per RN note (11/20) Pt was given a sandwich, 3 juices, and chocolate pudding and ate it all. Spoke with RNNita, she stated the Pt requested soup and was more compliant in eating once given soup. RN stated she drank her Ensure today and is requesting soup with every meal. Recommended to RN to contact Md regarding GFR and BUN/Cr, if Pt should be placed on a renal diet. RN stated the Pt was going to have a kidney ultrasound and would contact MD regarding diet order (completed). Recommend switching Ensure Enlive to Suplena pending ultrasound results. HT: 57 WT: 102 LB (46.36 kg) BMI: 15.98 (Underweight) GI: Not noted BM: Not noted I/O: 920/Not Noted Skin: Not noted Tommy: Rafaela Diet Order: Renal, chopped, Ensure Enlive 4x day Estimated Energy Needs: ( Underweight, Renal, CBW) 7672-4153 kcals (30-35 kcals/ kg) 28-35g Pro (0.6-0.75 g/kg) Per MD Current Diet Order/ Nutrition Support Renal, chopped, Ensure Enlive 4x day Pertinent Medications Maalox (PRN0, Colace, Cephulac , Synthroid, MOM (PRN), Theregran, Zofran (PRN), Miralax Pertinent Labs 11/20: Hgb/Hct 8.7/26.2, BUN/ Cr 35/3.1, GFR 19.4 Nutritional Hx/Data Height 1.7 m Height (Calculated Centimeters) 170.2 Current Weight (lbs) 46.266 kg Weight (Calculated Kilograms) 46.3 Weight (Calculated Grams) 84033.4 [place] Body Weight 135 LB (61.36kg) % [place] Body Weight 76 Body Mass Index (BMI) 16.0 Weight Status Underweight GI Symptoms Last BM Not noted Skin Integrity/Comment: Tommy: Rafaela Estimated Nutritional Goals BEE in Kcals: Using Current wt Calories/Kcals/Kg 30-35 Kcals Calculated 2886-3082 Protein: Using Current wt Protein g/k.6-0.75 Protein Calculated 28-35 Fluid: ml Per MD Nutritional Problem 2. Problem Problem Underweight Etiology r/t possible poor appetite/ psychosis Signs/Symptoms: aeb Pt refusal to eat at times . 1. Problem Problem Altered nutrition related labs Etiology r/t pathophysiological causes Signs/Symptoms: aeb BUN/ Cr 35/3.1, GFR 19.4. Malnutrition Related to Morbid Obesity Malnutrition related to morbid obesity No Intervention/Recommendation Recommendations by RD Increase Calorie Intake Comments 1. Continue with Renal, chopped diet as ordered. 2. Recommend switching Ensure Enlive to Suplena pending ultrasound results and kidney related labs. 3. RN to encourage improved PO intake. Expected Outcomes/Goals Expected Outcomes/Goals 1. PO intake to meet 75% of nutritional needs. 2. Monitor PO intake, skin integrity, and nutrition related labs to trend WNL. 3 .Weight to trend towards IBW in 3-5 days. 4 .F/U as moderate risk in 7 days, 8/8-11/27
[2018-12-02] MEDS: POLYETHYLENE GLYCOL 3350 17 GM PACK PO SCH (08:44)
[2018-12-02] MEDS: Haldol Oral Sol.(concentrate) 10 mg/5 mL Udc PO SCH ×2 (08:44→16:20)
[2018-12-02] MEDS: Lactulose 10 Gm/15 mL 30mL UDC PO SCH (08:44)
[2018-12-02] MEDS: Dicyclomine 10 mg Cap PO SCH ×2 (08:45→14:55)
[2018-12-02] MEDS: OLANZapine 5 mg Oral Disintegrating Tab PO SCH (08:45)
[2018-12-02] MEDS: Multivitamin Tab PO SCH (08:45)
[2018-12-02] MEDS: Levothyroxine 0.075 Mg Tab PO SCH (08:45)
--- NOTE | 2018-12-02 11:56 | Internal Medicine Prog Note ---
Internal Medicine Subjective - Subjective Patient seen and examined:: with staff, chart reviewed Patient is:: awake, verbal, interactive Per staff patient has:: no adverse event, no episodes of fall, tolerating meds Internal Medicine Objective - Results Result Diagrams: 11/20/18 08:40 11/20/18 08:40 Recent Labs: Laboratory Last Values WBC 6.8 Th/cmm (4.8-10.8) 11/20/18 08:40 RBC 2.82 Mil/cmm (3.80-5.20) L 11/20/18 08:40 Hgb 8.7 gm/dL (12-16) L 11/20/18 08:40 Hct 26.2 % (41.0-60) L 11/20/18 08:40 MCV 92.9 fl (81-100) 11/20/18 08:40 MCH 30.9 pg (27.0-31.0) 11/20/18 08:40 MCHC Differential 33.3 pg (28.0-36.0) 11/20/18 08:40 RDW 15.1 % (11.5-20.0) 11/20/18 08:40 Plt Count 225 Th/cmm (150-400) 11/20/18 08:40 MPV 8.8 fl 11/20/18 08:40 Neutrophils % 67.3 % (40.0-80.0) 11/20/18 08:40 Lymphocytes % 17.0 % (20.0-50.0) L 11/20/18 08:40 Monocytes % 5.1 % (2.0-10.0) 11/20/18 08:40 Eosinophils % 10.1 % (0.0-5.0) H 11/20/18 08:40 Basophils % 0.5 % (0.0-2.0) 11/20/18 08:40 PT 11.6 SECONDS (9.5-11.5) H 11/20/18 08:40 INR 1.13 (0.5-1.4) 11/20/18 08:40 PTT (Actin FS) 28.8 SECONDS (26.0-38.0) 11/20/18 08:40 Sodium 136 mEq/L (136-145) 11/20/18 08:40 Potassium 4.0 mEq/L (3.5-5.1) 11/20/18 08:40 Chloride 99 mEq/L (98-107) 11/20/18 08:40 Carbon Dioxide 23.7 mEq/L (21.0-31.0) 11/20/18 08:40 Anion Gap 17.3 (7.0-16.0) H 11/20/18 08:40 BUN 35 mg/dL (7-25) H 11/20/18 08:40 Creatinine 3.1 mg/dL (0.6-1.2) H 11/20/18 08:40 Est GFR ( Amer) 19.4 ml/min (>90) 11/20/18 08:40 Est GFR (Non-Af Amer) 16.0 ml/min 11/20/18 08:40 BUN/Creatinine Ratio 11.3 11/20/18 08:40 Glucose 73 mg/dL (70-105) 11/20/18 08:40 Calcium 9.4 mg/dL (8.6-10.3) 11/20/18 08:40 Total Bilirubin 0.5 mg/dL (0.3-1.0) 11/20/18 08:40 AST 16 U/L (13-39) 11/20/18 08:40 ALT 7 U/L (7-52) 11/20/18 08:40 Alkaline Phosphatase 86 U/L (34-104) 11/20/18 08:40 Troponin I 0.02 ng/mL (0.01-0.05) 11/20/18 08:40 Total Protein 8.3 gm/dL (6.0-8.3) 11/20/18 08:40 Albumin 4.3 gm/dL (3.7-5.3) 11/20/18 08:40 Globulin 4.0 gm/dL 11/20/18 08:40 Albumin/Globulin Ratio 1.1 (1.0-1.8) 11/20/18 08:40 Triglycerides 67 mg/dL (<150) 11/21/18 06:14 Cholesterol 151 mg/dL (<200) 11/21/18 06:14 LDL Cholesterol Direct 82 mg/dL (75-193) 11/21/18 06:14 HDL Cholesterol 65 mg/dL (23-92) 11/21/18 06:14 TSH 1.57 uIU/ml (0.34-5.60) 11/20/18 08:40 Urine Source CLEAN C 11/20/18 09:50 Urine Color YELLOW 11/20/18 09:50 Urine Clarity CLEAR (CLEAR) 11/20/18 09:50 Urine pH 6.0 (4.6 - 8.0) 11/20/18 09:50 Ur Specific [place] 1.025 (1.005-1.030) 11/20/18 09:50 Urine Protein NEGATIVE mg/dL (NEGATIVE) 11/20/18 09:50 Urine Glucose (UA) NEGATIVE mg/dL (NEGATIVE) 11/20/18 09:50 Urine Ketones NEGATIVE mg/dL (NEGATIVE) 11/20/18 09:50 Urine Blood MODERATE (NEGATIVE) H 11/20/18 09:50 Urine Nitrate NEGATIVE (NEGATIVE) 11/20/18 09:50 Urine Bilirubin NEGATIVE (NEGATIVE) 11/20/18 09:50 Urine Urobilinogen 0.2 E.U./dL (0.2 - 1.0) 11/20/18 09:50 Ur Leukocyte Esterase NEGATIVE (NEGATIVE) 11/20/18 09:50 Urine RBC 2-5 /hpf (0-5) 11/20/18 09:50 Urine WBC 0-2 /hpf (0-5) 11/20/18 09:50 Ur Epithelial Cells FEW /lpf (FEW) 11/20/18 09:50 Urine Bacteria NONE SEEN /hpf (NONE SEEN) 11/20/18 09:50 - Physical Exam Vitals and I&O: Vital Signs Temp 97.6 F 12/02/18 06:36 Pulse 65 12/02/18 06:36 Resp 20 12/02/18 10:57 BP 97/63 12/02/18 06:36 Pulse Ox 100 12/02/18 06:36 Intake & Output 12/01/18 12/02/18 12/02/18 18:59 06:59 18:59 Intake Total 480 120 Balance 480 120 Intake: Oral 480 120 Other: # Voids 3 2 # Bowel Movements 1 0 Active Medications: Current Medications Acetaminophen (Tylenol) 650 mg PO Q4HR PRN PRN Reason: Mild Pain / Temp above 100 Stop: 01/20/19 05:59 Last Admin: 12/02/18 07:14 Dose: 650 mg Al Hydrox/Mg Hydrox/Simethicone (Maalox) 30 ml PO Q4H PRN PRN Reason: GI DISTRESS Stop: 01/20/19 13:27 Dicyclomine HCl (Bentyl) 20 mg PO TID MELANIE Stop: 01/20/19 13:59 Last Admin: 12/02/18 08:45 Dose: 20 mg Docusate Sodium (Colace) 100 mg PO BID MELANIE Stop: 01/20/19 16:59 Last Admin: 12/02/18 08:45 Dose: 100 mg Haloperidol Decanoate (Haldol Dec) 25 mg IM QMONTH MELANIE; Protocol Stop: 01/28/19 11:59 Last Admin: 11/29/18 15:14 Dose: 25 mg Haloperidol Lactate (Haldol Concentrate 10mg/5ml Susp) 5 mg PO BID MELANIE; Protocol Stop: 01/24/19 08:59 Last Admin: 12/02/18 08:44 Dose: 5 mg Lactulose (Cephulac) 30 gm PO DAILY MELANIE Stop: 01/21/19 08:59 Last Admin: 12/02/18 08:44 Dose: 30 gm Levothyroxine Sodium (Synthroid) 0.15 mg PO DAILY MELANIE Stop: 01/21/19 08:59 Last Admin: 12/02/18 08:45 Dose: 0.15 mg Magnesium Hydroxide (Milk Of Magnesia) 30 ml PO HS PRN PRN Reason: Constipation Magnesium Hydroxide (Milk Of Magnesia) 30 ml PO DAILY PRN PRN Reason: Constipation Stop: 01/20/19 13:27 Mirtazapine (Remeron) 15 mg PO HS MELANIE; Protocol Stop: 01/23/19 20:59 Last Admin: 12/01/18 21:42 Dose: 15 mg Multivitamins/Vitamin C (Theragran) 1 tab PO DAILY MELANIE Stop: 01/20/19 08:59 Last Admin: 12/02/18 08:45 Dose: 1 tab Olanzapine (Zyprexa Zydis) 5 mg PO DAILY MELANIE; Protocol Stop: 01/23/19 08:59 Last Admin: 12/02/18 08:45 Dose: 5 mg Ondansetron HCl (Zofran Odt) 4 mg PO Q6H PRN PRN Reason: NQAUSEA Stop: 01/20/19 14:12 Polyethylene Glycol (Miralax) 17 gm PO DAILY MELANIE Stop: 01/21/19 08:59 Last Admin: 12/02/18 08:44 Dose: 17 gm General: alert HEENT: NC/AT, PERRLA Neck: Supple Lungs: CTAB Cardiovascular: RRR, Normal S1, Normal S2, without murmur Abdomen: soft, non-tender, non-distended, positive bowel sound Extremities: excoriation Neurological: alert - Procedures Procedures: Procedures Procedure Code Date OTHER GROUP THERAPY 94.44 01/13/11 RECREATIONAL THERAPY 93.81 01/13/11 Internal Medicine Assmt/Plan - Assessment Assessment: - Assessment Assessment: Asthma COPD Dyslipidemia hypohyroid Dementia - Plan Plan: - Plan Plan: fall precautions cont home meds continue current plan of care meds reviewed dw staff Nutritional Asmnt/Malnutr-PDOC - Dietary Evaluation Malnutrition Findings (Please click <Entered> for more info): Nutritional Asmnt/Malnutrition Start: 11/22/18 08: 46 Text: Status: Active Freq: Protocol: Document 11/22/18 14:26 RAOUL (Rec: 11/22/18 14:31 RAOUL [id number]) Nutritional Asmnt/Malnutrition Patient General Information Nutritional Screening High Risk Consult Diagnosis Schizophrenia Pertinent Medical Hx/Surgical Hx Asthma/COPD, Dyslipidemia, Thyroid disorder, Dementia, Depression, Schizophrenia, dysphagia with G-tube, DJD Subjective Information Consult, received 11/21: Poor PO intakes Pt is a 63-year-old female admitted on 11/20 bib Pts son for evaluation, Pt has been depressed with occasional mood swings. Son stated to hospital personnel that Pt has been refusing to eat and had TPN via PICC line prior to admission. Per RN note (11/20) Pt was given a sandwich, 3 juices, and chocolate pudding and ate it all. Spoke with RN, Nita, she stated the Pt requested soup and was more compliant in eating once given soup. RN stated she drank her Ensure today and is requesting soup with every meal. Recommended to RN to contact Md regarding GFR and BUN/Cr, if Pt should be placed on a renal diet. RN stated the Pt was going to have a kidney ultrasound and would contact MD regarding diet order (completed). Recommend switching Ensure Enlive to Suplena pending ultrasound results. HT: 57 WT: 102 LB (46.36 kg) BMI: 15.98 (Underweight) GI: Not noted BM: Not noted I/O: 920/Not Noted Skin: Not noted Tommy: Rafaela Diet Order: Renal, chopped, Ensure Enlive 4x day Estimated Energy Needs: ( Underweight, Renal, CBW) 1435-6998 kcals (30-35 kcals/ kg) 28-35g Pro (0.6-0.75 g/kg) Per MD Current Diet Order/ Nutrition Support Renal, chopped, Ensure Enlive 4x day Pertinent Medications Maalox (PRN0, Colace, Cephulac , Synthroid, MOM (PRN), Theregran, Zofran (PRN), Miralax Pertinent Labs 11/20: Hgb/Hct 8.7/26.2, BUN/ Cr 35/3.1, GFR 19.4 Nutritional Hx/Data Height 1.7 m Height (Calculated Centimeters) 170.2 Current Weight (lbs) 46.266 kg Weight (Calculated Kilograms) 46.3 Weight (Calculated Grams) 28233.4 [place] Body Weight 135 LB (61.36kg) % [place] Body Weight 76 Body Mass Index (BMI) 16.0 Weight Status Underweight GI Symptoms Last BM Not noted Skin Integrity/Comment: Tommy: Rafaela Estimated Nutritional Goals BEE in Kcals: Using Current wt Calories/Kcals/Kg 30-35 Kcals Calculated 3616-4629 Protein: Using Current wt Protein g/k.6-0.75 Protein Calculated 28-35 Fluid: ml Per MD Nutritional Problem 2. Problem Problem Underweight Etiology r/t possible poor appetite/ psychosis Signs/Symptoms: aeb Pt refusal to eat at times . 1. Problem Problem Altered nutrition related labs Etiology r/t pathophysiological causes Signs/Symptoms: aeb BUN/ Cr 35/3.1, GFR 19.4. Malnutrition Related to Morbid Obesity Malnutrition related to morbid obesity No Intervention/Recommendation Recommendations by RD Increase Calorie Intake Comments 1. Continue with Renal, chopped diet as ordered. 2. Recommend switching Ensure Enlive to Suplena pending ultrasound results and kidney related labs. 3. RN to encourage improved PO intake. Expected Outcomes/Goals Expected Outcomes/Goals 1. PO intake to meet 75% of nutritional needs. 2. Monitor PO intake, skin integrity, and nutrition related labs to trend WNL. 3 .Weight to trend towards IBW in 3-5 days. 4 .F/U as moderate risk in 7 days, 11/25-11/27
--- NOTE | 2018-12-02 18:55 | Progress Notes ---
DATE: SUBJECTIVE: Chart reviewed and the patient interviewed. Also discussed the patient's condition with the staff and reviewed records and labs. The patient is still hyper talkative and she is still anxious and in a depressed mood. The patient also still has issues with compliance with taking medications. The patient also is interacting with others and it seemed that her interactions more than before and she is less irritable and less agitated. Also, it seems that her appetite slightly improved. At the same time, the patient is still demanding and still has difficulty making right decisions and making safe plan for her care. She is still angry with her son that has been taking care of and she thinks that she is able to care for herself. ASSESSMENT: The patient is still paranoid and agitated and needs close observation. TREATMENT PLAN: Continue to monitor behavior and condition closely. Also, it seems that the Haldol Decanoate injection has been helping the patient, which did by history helped her in the past. We will continue same dose and we will continue to follow up. [facility]# [id number]
== END 2018-12-02 17:35 | disposition short-term general hospital (02) | DRG 885 ==
LOC: ER 07:57 → GERO 19:00
PROVIDERS: ADMIT Psychiatry & Neurology Psychiatry; ATTEND Psychiatry & Neurology Psychiatry
DX: F25.1 Schizoaffective disorder, depressive type (principal); N18.3 Chronic kidney disease, stage 3 (moderate); Z93.1 Gastrostomy status; E03.9 Hypothyroidism, unspecified; K59.09 Other constipation; M19.90 Unspecified osteoarthritis, unspecified site; J44.9 Chronic obstructive pulmonary disease, unspecified; E78.5 Hyperlipidemia, unspecified; F03.90 Unspecified dementia, unspecified severity, without behavioral disturbance, psychotic disturbance, mood disturbance, and anxiety; F32.9 Major depressive disorder, single episode, unspecified; D64.9 Anemia, unspecified; R13.10 Dysphagia, unspecified; F41.9 Anxiety disorder, unspecified
CPT/HCPCS: 36415-UA; 71045-TC; 80053-TC; 80061-TC; 81001-TC; 83036-90; 84443-TC; 84484-TC; 85025-TC; 85610-TC; 85730-TC; 87086-90; 90899; 93005; G0410; J1631; Z7610

== ENCOUNTER 2018-12-02 15:55 | Inpatient (IN) | payer MEDICARE, OTHER ==
[2018-12-02] MEDS ORDERED: Albuterol Nebulizer 2.5mg/3mL HHN PRN (16:00)
[2018-12-02] MEDS ORDERED: D5-0.9%NS 1,000 ML IV SCH (16:00)
[2018-12-02] MEDS ORDERED: Ipratropium Neb 0.5 mg/2.5 mL UD IH PRN (16:00)
[2018-12-02 16:33] LABS: MEAN CORPUSCULAR HEMOGLOBIN 32.1 pg (27.0-31.0)
[2018-12-02 16:36] LABS: % BASOPHILS 0.1 % (0.0-2.0); % EOSINOPHILS 12.9 % (0.0-5.0); % LYMPHOCYTES 19.8 % (20.0-50.0); % MONOCYTES 6.9 % (2.0-10.0); % NEUTROPHILS 60.3 % (40.0-80.0); EOSINOPHILE ABSOLUTE 0.7 Th/cmm (0.1-0.4); HEMATOCRIT 26.7 % (41.0-60); HEMOGLOBIN 8.9 gm/dL (12-16); MEAN CELL VOLUME 96.1 fl (81-100); MEAN CORPUSCULAR HGB CONC 33.4 pg (28.0-36.0); MONOCYTE ABSOLUTE 0.4 Th/cmm (0.3-1.0); PLATELET COUNT 226 Th/cmm (150-400); RED BLOOD COUNT 2.78 Mil/cmm (3.80-5.20); RED CELL DISTRIBUTION WIDTH 14.9 % (11.5-20.0); WHITE BLOOD COUNT 5.1 Th/cmm (4.8-10.8)
[2018-12-02 16:43] LABS: ALBUMIN 3.5 gm/dL (3.7-5.3); ANION GAP 20.9 (7.0-16.0); BILIRUBIN,TOTAL 0.3 mg/dL (0.3-1.0); CARBON DIOXIDE 25.6 mEq/L (21.0-31.0); CREATININE - SERUM 2.2 mg/dL (0.6-1.2); GFR AFRICAN-AMERICAN 28.8 ml/min (>90); GFR NON AFRICAN-AMERICAN 23.8 ml/min; POTASSIUM SERUM 3.5 mEq/L (3.5-5.1)
[2018-12-02] MEDS: Dicyclomine 10 mg Cap PO SCH (20:14)
--- NOTE | 2018-12-03 00:03 | Discharge Summary ---
DATE OF DISCHARGE: 12/02/2018 FINAL DIAGNOSIS/PRIMARY DIAGNOSIS: Schizoaffective disorder, depressed episode, severe, with psychotic features. REASON FOR HOSPITALIZATION: The patient was admitted to the hospital because of increased depression and increased paranoia and she was acting bizarre and not eating or sleeping. HOSPITAL COURSE: The patient continued to be restless and severely irritable and agitated. The patient also is having severe mood swings. The patient also was having difficulty making decisions and she at times was refusing to take her medications and finally the patient agreed to take Haldol Decanoate injection every month in a dose of 25 mg every month. The patient also continued to take Remeron 50 mg at bedtime and Zyprexa 5 mg every day. Later on, the patient was transferred to the medical floor because of leaking on the G-tube area as well as pain around that area and also sudden drop in her blood pressure. PHYSICAL EXAMINATION: The patient showed that the patient basically has G-tube, hypothyroidism, dyslipidemia, COPD and history of bronchial asthma. AFTER DISCHARGE PLANS: The patient was transferred to Med/Surg unit with plans for followup her there. JOB# [id number]
[2018-12-03] MEDS: Levothyroxine 0.075 Mg Tab PO SCH (07:05)
--- NOTE | 2018-12-03 08:49 | Diagnostic Imaging Report ---
Portable chest x-ray HISTORY: Pain Allowing for a poor inspiration, the heart size is normal. No definite acute focal pulmonary processes. No hilar or mediastinal abnormalities. IMPRESSION: No definite acute abnormality
--- NOTE | 2018-12-03 08:58 | Diagnostic Imaging Report ---
Abdominal ultrasound HISTORY: Pain Exam limited due to considerable bowel gas. The liver exhibits a normal size the homogeneous parenchyma. The gallbladder is poorly visualized and may be contracted. If the gallbladder has not been removed and the patient is fasting, this appearance considered abnormal and suggests underlying gallbladder disease. A repeat exam with the patient fasting if the gallbladder has not been removed would provide for further assessment. No biliary dilatation. Pancreas not well seen due to bowel gas. The right kidney cannot be visualized. The left kidney is normal in size. Increased cortical echogenicity. Findings may be associated with chronic parenchymal disease correlated with renal function tests. No other definite retroperitoneal or intra-abdominal abnormalities. IMPRESSION: 1. Limited exam. 2. Poor visualization of the gallbladder which may be contracted. If the patient is fasting and the gallbladder has not been removed, this finding is considered abnormal and suggests underlying gallbladder. If the gallbladder has not been removed exam should be repeated with fasting if gallbladder disease is suspected. 3. Increased cortical echogenicity of the left kidney. Finding should be correlated with renal function tests. 4. Nonvisualization of the right kidney. Finding should be correlated with patient's surgical history. A CT scan would provide additional anatomic evaluation.
[2018-12-03] MEDS: Lactulose 10 Gm/15 mL 30mL UDC PO SCH (09:26)
[2018-12-03] MEDS: Dicyclomine 10 mg Cap PO SCH ×3 (09:27→21:59)
[2018-12-03] MEDS: OLANZapine 5 mg Oral Disintegrating Tab PO SCH (09:27)
[2018-12-03] MEDS: Multivitamin Tab PO SCH (09:27)
[2018-12-03] MEDS: POLYETHYLENE GLYCOL 3350 17 GM PACK PO SCH (09:27)
[2018-12-03 11:35] LABS: URINE SOURCE CLEAN C
[2018-12-03 11:39] LABS: URINE BILIRUBIN NEGATIVE (NEGATIVE); URINE BLOOD TRACE (NEGATIVE); URINE GLUCOSE (UA) NEGATIVE (NEGATIVE); URINE KETONE NEGATIVE (NEGATIVE); URINE LEUKOCYTE ESTERASE SMALL (NEGATIVE); URINE MICROSCOPIC INDICATED? YES; URINE NITRATE NEGATIVE (NEGATIVE); URINE PH 5.5 (4.6 - 8.0); URINE PROTEIN 30 mg/dL (NEGATIVE); URINE UROBILINOGEN 0.2 E.U./dL (0.2 - 1.0)
[2018-12-03 11:53] LABS: URINE CLARITY SLIGHTLY HAZY (CLEAR); URINE COLOR YELLOW
[2018-12-03 11:54] LABS: URINE BACTERIA NONE SEEN /hpf (NONE SEEN); URINE RBC 0-2 /hpf (0-5)
[2018-12-03 11:57] LABS: URINE EPITHELIAL CELLS FEW /lpf (FEW)
--- NOTE | 2018-12-03 12:56 | History & Physical ---
ADMIT DATE: 12/03/2018 CHIEF COMPLAINT: Low blood pressure. HISTORY OF PRESENT ILLNESS: This is a 63-year-old -[place]ian male with history of COPD, dementia, hypothyroidism, degenerative joint disease, psych disorder, admitted initially to [facility]. The patient was noted to have weak and noted to have low blood pressure. systolic in the 80s. The patient was transferred for continued care and treatment. PAST MEDICAL HISTORY: As mentioned in history of present illness. PAST SURGICAL HISTORY: G-tube. ALLERGIES: QUESTIONABLE ALLERGY TO HALDOL. The patient getting Haldol on an outpatient basis as well as a [facility]. MEDICATIONS: Zofran, Tylenol, Bentyl, Colace, lactulose, Synthroid, lorazepam, Olanzapine, MiraLax. FAMILY HISTORY: Noncontributory. SOCIAL HISTORY: The patient denies smoking or drinking. The patient apparently from home lives by herself, unemployed. PHYSICAL EXAMINATION: VITAL SIGNS: Blood pressure 93/58, respirations 19, pulse , temperature 98.5. GENERAL: Elderly aged female, appears her stated age. NECK: Supple. No mass. LUNGS: Equal breath sounds with few rhonchi. HEART: Regular rate and rhythm. Systolic ejection murmur. ABDOMEN: Soft, . Positive G-tube. EXTREMITIES: Positive excoriation atrophy. LABORATORY DATA: WBC 5, hemoglobin 8.9, platelets . Sodium , potassium 5, BUN 45, creatinine 2.2, blood sugar 98. Albumin 3.5. UA shows protein, small leukocyte. ASSESSMENT AND PLAN: Hypertension, dysphagia with G-tube, COPD, dementia, hypothyroidism, degenerative joint disease, anemia, , chronic renal insufficiency, proteinuria. We will continue the patient on IV hydration. Refer the patient to GI, complaining of abdominal discomfort. Abdominal ultrasound is pending. Continue on Bentyl. We will also refer the patient to Psychiatry. Continue with . Follow consult and recommendations. JOB# [id number]
[2018-12-03] MEDS: D5-0.9%NS 1,000 ML IV SCH (13:02)
[2018-12-03] MEDS ORDERED: Diatrizoate Meglumine/Diatri 30 mL Sol PO ONE (15:27)
--- NOTE | 2018-12-03 16:17 | Consultation ---
DATE OF CONSULTATION: 12/03/2018 REQUESTING PHYSICIAN: Dr. Hakeem Redding. REASON FOR CONSULTATION: G-tube leakage. Thank you for asking me to see this patient in consultation. HISTORY OF PRESENT ILLNESS: This is a 63-year-old -Irish female with history of COPD, dementia, degenerative joint disease, who has apparently a G-tube for patient only for venting purposes. We have been consulted to see the patient because there was some leakage around the G-tube site. This has since been dressed and cleaned by the nursing staff and no longer appears red and irritated as it probably was once before. The patient states that she does have some occasional abdominal pain in this area, although this pain seems to have been there for some time. She had an abdominal ultrasound performed since she has been here, which showed poor visualization of the gallbladder, which may be contracted. No other major abnormalities. PAST MEDICAL HISTORY: As listed above. MEDICATIONS: Have been reviewed. SOCIAL HISTORY: Denies any tobacco, alcohol or drugs. FAMILY HISTORY: Noncontributory for GI disease. REVIEW OF SYSTEMS: Positive for abdominal pain around the site of the G-tube. All other 12-point systems are negative. PHYSICAL EXAMINATION: VITAL SIGNS: Temperature of 98.1, pulse of 59, respiratory rate of 18, blood pressure is 111/62, satting 98% on room air. GENERAL: She is in no acute distress. HEENT: Normocephalic, atraumatic. PERRLA positive. LUNGS: Clear bilaterally. No wheezes, rales or rhonchi. HEART: Regular rate and rhythm, normal S1, S2. ABDOMEN: Soft, slight tenderness to palpation around the G-tube site when this goes in and out. There is no external bumper on the G-tube. It is in good position. It is draining bilious fluid. EXTREMITIES: Show no lower extremity edema. PSYCHIATRIC: Alert and oriented x 3. NEUROLOGIC: Grossly intact. LABORATORY DATA: Hemoglobin of 8.9, platelet count of 226,000. IMAGING: As reviewed above. ASSESSMENT AND PLAN: This is a 63-year-old patient with history of multiple normal. ASSESSMENT AND PLAN: This is a 63-year-old female with history of chronic obstructive pulmonary disease, dementia, dysphagia, who had been G-tube dependent in the past, mainly for venting purposes, unknown whether the patient could have had intra-abdominal cancer, gynecologic cancer. Her records are rather scarce at this point. 1. Abdominal pain and discomfort. 2. History of G-tube placement for venting purposes, unsure if the patient has any intra-abdominal or uterine malignancy. 3. History of dementia and chronic obstructive pulmonary disease. 4. Psychiatric disorder. The patient's history is relatively scarce at this point. She has been seen for psychiatric reasons here in the hospital and I am not exactly sure 100% why she has a G-tube placed. She is able to tolerate some foods, pureed p.o. without any problems, but she does complain of abdominal pain, which seems to be around the site of the G-tube, although I cannot rule out any sort of intra-abdominal malignancy. RECOMMENDATIONS: 1. Obtain a CT of the abdomen and pelvis with oral contrast. 2. Okay to leave G-tube without feedings for now. We would recommend to keep G-tube to gravity and clamp all patient's eating up to about 2 hours after she has eaten. 3. Supportive care and management. We can consider if there is increased leakage of the G-tube to replace her G-tube with a 22-Lao, although at this time it seems relatively unremarkable, but we will continue to monitor alongside with you. Thank you for allowing us to participate in this patient's care. JOB# [id number]
--- NOTE | 2018-12-03 19:06 | Progress Notes ---
DATE: Patient is extremely agitated this morning and she is in angry and in irritable mood. The patient also is still having her stuff packed and "I wanna leave, take me with you. You're going to take me to my home." She is demanding and restless and she is unable to make up fair decisions. She also is still suspicious and paranoid, but no major behavioral problems. The patient needs to have an ultrasound. At the same time, the patient denies any intention to harm herself or others. ASSESSMENT: The patient is still agitated and needs medical treatment but not suicidal or homicidal or overtly psychotic. TREATMENT PLAN: I managed to convince the patient to continue hospital stay until she has at least to have ultrasound that should be done today. We will make a decision after that in regard to her discharge plans. At this time, the patient is not 5150 hold material. JOB# [id number]
[2018-12-03] MEDS: Heparin Sod 5,000Units/ML 5,000 UNITS/ML VIAL SUBQ SCH (21:59)
[2018-12-04] MEDS: Morphine Sulfate 2 mg/mL 1mL Syr IVP PRN ×3 (00:33→16:13)
[2018-12-04] MEDS: D5-0.9%NS 1,000 ML IV SCH ×2 (04:49→04:55)
[2018-12-04 06:06] LABS: FOLIC ACID >20.0 ng/mL (>3.0)
[2018-12-04 06:43] LABS: ANION GAP 11.6 (7.0-16.0); CALCIUM SERUM 8.5 mg/dL (8.6-10.3); CARBON DIOXIDE 29.4 mEq/L (21.0-31.0); CREATININE - SERUM 1.8 mg/dL (0.6-1.2); GFR AFRICAN-AMERICAN 36.3 ml/min (>90)
[2018-12-04] MEDS: Levothyroxine 0.075 Mg Tab PO SCH (06:44)
[2018-12-04 07:12] LABS: % EOSINOPHILS 9.8 % (0.0-5.0); % LYMPHOCYTES 13.3 % (20.0-50.0); % MONOCYTES 5.6 % (2.0-10.0); HEMATOCRIT 23.3 % (41.0-60); HEMOGLOBIN 7.9 gm/dL (12-16); MEAN CELL VOLUME 97.4 fl (81-100); MEAN CORPUSCULAR HEMOGLOBIN 32.9 pg (27.0-31.0); MEAN CORPUSCULAR HGB CONC 33.8 pg (28.0-36.0); PLATELET COUNT 221 Th/cmm (150-400); RED BLOOD COUNT 2.39 Mil/cmm (3.80-5.20); RED CELL DISTRIBUTION WIDTH 15.1 % (11.5-20.0); WHITE BLOOD COUNT 6.5 Th/cmm (4.8-10.8)
[2018-12-04 07:13] LABS: % BASOPHILS 0.3 % (0.0-2.0); EOSINOPHILE ABSOLUTE 0.6 Th/cmm (0.1-0.4); LYMPHOCYTE ABSOLUTE 0.9 Th/cmm (1.5-3.0); MONOCYTE ABSOLUTE 0.4 Th/cmm (0.3-1.0); NEUTROPHILE ABSOLUTE 4.6 Th/cmm (1.8-8.0)
[2018-12-04] MEDS: Lactulose 10 Gm/15 mL 30mL UDC PO SCH (08:27)
[2018-12-04] MEDS: POLYETHYLENE GLYCOL 3350 17 GM PACK PO SCH (08:28)
[2018-12-04] MEDS: Dicyclomine 10 mg Cap PO SCH ×3 (08:28→21:13)
[2018-12-04] MEDS: Multivitamin Tab PO SCH (08:30)
[2018-12-04] MEDS: OLANZapine 5 mg Oral Disintegrating Tab PO SCH (08:30)
[2018-12-04] MEDS: Heparin Sod 5,000Units/ML 5,000 UNITS/ML VIAL SUBQ SCH ×2 (08:31→21:14)
--- NOTE | 2018-12-04 09:35 | Diagnostic Imaging Report ---
Head CT without intravenous contrast Indication: Altered Comparison: None Technique: Axial images were obtained from the vertex to the skull base without IV contrast. Coronal reconstructions were made. Total DLP: 574, CTDI32.8 FINDINGS: Images of the brain obtained without contrast demonstrate no evidence of an acute hemorrhage. The bal-white matter differentiation is preserved. The ventricles and basal cisterns are patent. No mass effect or midline shift. There is extensive sinusitis with complete opacification of the sphenoid sinuses and almost complete opacification of ethmoid air cells. There is also evidence of prior sinus surgery. No acute fracture or focal soft tissue swelling. IMPRESSION: No acute intracranial abnormality. Extensive sinusitis with evidence of prior sinus surgery.
--- NOTE | 2018-12-04 09:41 | Diagnostic Imaging Report ---
CT abdomen and pelvis without intravenous contrast Indication: Abdominal pain Comparison: KUB on 10/31/2017, an abdominal ultrasound on 12/03/2018 Technique: Axial images were obtained from the lung bases to the bilateral proximal femurs without IV contrast. Coronal reconstructions were made. total DLP: 296, CTDI6.3 FINDINGS: Hyperinflated lung bases are noted. There is gastroesophageal reflux with massive distention of the stomach. There is contrast opacification of multiple markedly distended small bowel loops. There is massive stool seen throughout the colon with there is a fecal impaction gas distended loops of bowel. Patient distended bowel loops limit assessment of the solid organs. No obvious focal hepatic lesions. Assessment of the spleen is and pancreas are limited. Assessment of the adrenal glands also limited. There is indeterminate lobulated lesion along the right hip from the superior pole of the right kidney measuring 4 x 3.6 cm. Additional smaller lesions are seen to small to characterize but possibly representing cysts. No hydronephrosis. The urinary bladder is partially collapsed. Postsurgical changes are seen along the rectal region. No evidence of gross free air or free fluid. A percutaneous gastrostomy feeding tube is noted. The osseous structures demonstrate no acute abnormalities. IMPRESSION: Significant distention of the stomach with gastroesophageal reflux noted. There is also significant distention of multiple small bowel loops containing enteric contrast. No significant enteric contrast was seen in the large bowel at this time. There is also massive stool throughout the colon and gas-filled loops of bowel. Postsurgical changes of the rectal region are noted. Differential diagnosis includes severe back up from patient's constipation and massive stool or possible distal small bowel obstructive process. Clinical correlation and short-term follow-up is recommended. Percutaneous gastric feeding tube. Note that the enteric contrast was administered to patient's percutaneous gastric feeding tube. Patient may need to be aspiration precautions due to gastroesophageal reflux an obstructive process of the abdomen. Indeterminate low-density lesions of the superior pole right kidney possibly cysts however CT with IV contrast is recommended given the limitations of the exam. No evidence of free air or free fluid at this time. Please refer to above for details.
[2018-12-04] MEDS ORDERED: Potassium Chloride Elixir 20 mEq /15 mL UDC PO ONE (10:21)
--- NOTE | 2018-12-04 13:06 | Internal Medicine Prog Note ---
Internal Medicine Subjective - Subjective Patient seen and examined:: with staff, chart reviewed, other (very picky eater per staff) Patient is:: awake, verbal, interactive, in wheelchair, talking Patient Complaints of:: unable to sleep Per staff patient has:: no adverse event, no episodes of fall, poor appetite, tolerating meds Internal Medicine Objective - Results Result Diagrams: 12/04/18 06:20 12/04/18 06:20 Recent Labs: Laboratory Last Values WBC 6.5 Th/cmm (4.8-10.8) 12/04/18 06:20 RBC 2.39 Mil/cmm (3.80-5.20) L 12/04/18 06:20 Hgb 7.9 gm/dL (12-16) L* 12/04/18 06:20 Hct 23.3 % (41.0-60) L 12/04/18 06:20 MCV 97.4 fl (81-100) 12/04/18 06:20 MCH 32.9 pg (27.0-31.0) H 12/04/18 06:20 MCHC Differential 33.8 pg (28.0-36.0) 12/04/18 06:20 RDW 15.1 % (11.5-20.0) 12/04/18 06:20 Plt Count 221 Th/cmm (150-400) 12/04/18 06:20 MPV 8.3 fl 12/04/18 06:20 Neutrophils % 71.0 % (40.0-80.0) 12/04/18 06:20 Lymphocytes % 13.3 % (20.0-50.0) L 12/04/18 06:20 Monocytes % 5.6 % (2.0-10.0) 12/04/18 06:20 Eosinophils % 9.8 % (0.0-5.0) H 12/04/18 06:20 Basophils % 0.3 % (0.0-2.0) 12/04/18 06:20 Sodium 138 mEq/L (136-145) 12/04/18 06:20 Potassium 3.0 mEq/L (3.5-5.1) L 12/04/18 06:20 Chloride 100 mEq/L (98-107) 12/04/18 06:20 Carbon Dioxide 29.4 mEq/L (21.0-31.0) 12/04/18 06:20 Anion Gap 11.6 (7.0-16.0) 12/04/18 06:20 BUN 37 mg/dL (7-25) H 12/04/18 06:20 Creatinine 1.8 mg/dL (0.6-1.2) H 12/04/18 06:20 Est GFR ( Amer) 36.3 ml/min (>90) 12/04/18 06:20 Est GFR (Non-Af Amer) 30.0 ml/min 12/04/18 06:20 BUN/Creatinine Ratio 20.6 12/04/18 06:20 Glucose 93 mg/dL (70-105) 12/04/18 06:20 POC Glucose 124 MG/DL (70 - 105) H 12/03/18 21:59 Calcium 8.5 mg/dL (8.6-10.3) L 12/04/18 06:20 Magnesium 2.0 mg/dL (1.9-2.7) 12/02/18 16:15 Total Bilirubin 0.3 mg/dL (0.3-1.0) 12/02/18 16:15 AST 13 U/L (13-39) 12/02/18 16:15 ALT 6 U/L (7-52) L 12/02/18 16:15 Alkaline Phosphatase 65 U/L (34-104) 12/02/18 16:15 Ammonia 26 umol/L (16-53) 12/04/18 06:20 B-Natriuretic Peptide 175.0 pg/mL (5.0-100.0) H 12/04/18 06:20 Total Protein 7.0 gm/dL (6.0-8.3) 12/02/18 16:15 Albumin 3.5 gm/dL (3.7-5.3) L 12/02/18 16:15 Globulin 3.5 gm/dL 12/02/18 16:15 Albumin/Globulin Ratio 1.0 (1.0-1.8) 12/02/18 16:15 Vitamin B12 734 pg/mL (232-1245) 12/02/18 16:15 Folic Acid >20.0 ng/mL (>3.0) 12/02/18 16:15 TSH 2.65 uIU/ml (0.34-5.60) 12/02/18 16:15 Urine Source CLEAN C 12/03/18 11:30 Urine Color YELLOW 12/03/18 11:30 Urine Clarity SLIGHTLY HAZY (CLEAR) 12/03/18 11:30 Urine pH 5.5 (4.6 - 8.0) 12/03/18 11:30 Ur Specific [place] 1.010 (1.005-1.030) 12/03/18 11:30 Urine Protein 30 mg/dL (NEGATIVE) H 12/03/18 11:30 Urine Glucose (UA) NEGATIVE mg/dL (NEGATIVE) 12/03/18 11:30 Urine Ketones NEGATIVE mg/dL (NEGATIVE) 12/03/18 11:30 Urine Blood TRACE (NEGATIVE) 12/03/18 11:30 Urine Nitrate NEGATIVE (NEGATIVE) 12/03/18 11:30 Urine Bilirubin NEGATIVE (NEGATIVE) 12/03/18 11:30 Urine Urobilinogen 0.2 E.U./dL (0.2 - 1.0) 12/03/18 11:30 Ur Leukocyte Esterase SMALL (NEGATIVE) H 12/03/18 11:30 Urine RBC 0-2 /hpf (0-5) 12/03/18 11:30 Urine WBC 2-5 /hpf (0-5) 12/03/18 11:30 Ur Epithelial Cells FEW /lpf (FEW) 12/03/18 11:30 Urine Bacteria NONE SEEN /hpf (NONE SEEN) 12/03/18 11:30 - Physical Exam Vitals and I&O: Vital Signs Temp 97.0 F 12/04/18 11:41 Pulse 67 12/04/18 11:41 Resp 18 12/04/18 11:41 BP 101/59 12/04/18 11:41 Pulse Ox 97 12/04/18 11:41 Intake & Output 12/03/18 12/04/18 12/04/18 18:59 06:59 18:59 Intake Total 750 1100 100 Output Total 200 Balance 750 1100 -100 Weight (lbs) 46.266 kg 46.266 kg 48.897 kg Intake: Intake, IV Amount 1000 D5-0.9%Ns 1,000 ml @ 80 1000 mls/hr IV .[id number] [facility] Rx #:[id number] Oral 750 100 100 Output: Emesis 200 Other: # Voids 3 1 1 # Bowel Movements 1 1 Stool Characteristics Soft Brown Brown Formed Weight Source Bedscale Bedscale Bedscale Active Medications: Current Medications Acetaminophen (Tylenol) 650 mg PO Q4H PRN PRN Reason: Mild Pain Or Fever above 101 Stop: 01/31/19 15:59 Last Admin: 12/03/18 18:15 Dose: 650 mg Albuterol Sulfate (Albuterol 2.5mg/3ml Neb Ud) 2.5 mg HHN Q2HRT PRN PRN Reason: Shortness of Breath or Wheeze Stop: 01/31/19 15:59 Dicyclomine HCl (Bentyl) 20 mg PO TID MELANIE Stop: 01/31/19 20:59 Last Admin: 12/04/18 08:28 Dose: 20 mg Docusate Sodium (Colace) 100 mg PO BID [facility] Stop: 01/31/19 16:59 Last Admin: 12/04/18 08:30 Dose: 100 mg Fludrocortisone Acetate (Florinef) 0.1 mg PO DAILY [facility] Stop: 02/01/19 12:10 Last Admin: 12/04/18 08:28 Dose: 0.1 mg Haloperidol (Haldol) 5 mg PO BID [facility]; Protocol Stop: 01/31/19 16:59 Last Admin: 12/04/18 08:29 Dose: 5 mg Heparin Sodium (Porcine) (Heparin) 5,000 units SUBQ Q12H [facility] Stop: 02/01/19 20:59 Last Admin: 12/04/18 08:31 Dose: 5,000 units Potassium Chloride/Dextrose/Sod Cl (D5-0.9ns W/Kcl 20meq) 1,000 mls @ 50 mls/ hr IV .Q20H [facility] Stop: 02/02/19 13:14 Ipratropium [place] (Atrovent Neb 0.5mg/2.5ml) 0.5 mg IH Q2HRT PRN PRN Reason: Shortness of Breath or Wheeze Stop: 01/31/19 15:59 Lactulose (Cephulac) 30 gm PO BID [facility] Stop: 02/02/19 16:59 Levothyroxine Sodium (Synthroid) 0.15 mg PO QDAC MELANIE Stop: 02/01/19 07:29 Last Admin: 12/04/18 06:44 Dose: 0.15 mg Lorazepam (Ativan) 2 mg IM Q4HR PRN; Protocol PRN Reason: Anxiety Stop: 02/01/19 07:10 Last Admin: 12/03/18 07:38 Dose: 2 mg Mirtazapine (Remeron) 15 mg PO HS MELANIE; Protocol Stop: 01/31/19 20:59 Last Admin: 12/03/18 21:59 Dose: 15 mg Morphine Sulfate (Morphine) 2 mg IVP Q4H PRN PRN Reason: Pain (Severe) Stop: 01/31/19 15:59 Last Admin: 12/04/18 04:52 Dose: 2 mg Multivitamins/Vitamin C (Theragran) 1 tab PO DAILY MELANIE Stop: 02/01/19 08:59 Last Admin: 12/04/18 08:30 Dose: 1 tab Olanzapine (Zyprexa Zydis) 5 mg PO DAILY MELANIE; Protocol Stop: 02/01/19 08:59 Last Admin: 12/04/18 08:30 Dose: 5 mg Ondansetron HCl (Zofran) 4 mg IV Q8H PRN PRN Reason: Nausea / Vomiting Stop: 01/31/19 15:59 Last Admin: 12/03/18 22:43 Dose: 4 mg Polyethylene Glycol (Miralax) 17 gm PO DAILY MELANIE Stop: 02/01/19 08:59 Last Admin: 12/04/18 08:28 Dose: 17 gm General: alert, bilateral temporal wasting HEENT: NC/AT, PERRLA, EOMI, thinning hair Neck: Supple, No JVD, No thyromegaly Lungs: CTAB, chest deformity present Cardiovascular: RRR, Normal S1, Normal S2 Abdomen: soft, thin, +GT, positive bowel sound Extremities: excoriation Neurological: no change - Procedures Procedures: Procedures Procedure Code Date OTHER GROUP THERAPY 94.44 01/13/11 RECREATIONAL THERAPY 93.81 01/13/11 Internal Medicine Assmt/Plan - Assessment Assessment: ASSESSMENT AND PLAN: Hypertension, dysphagia with G-tube, COPD, dementia, hypothyroidism, degenerative joint disease, anemia, constipation, chronic renal insufficiency, proteinuria. - Plan Plan: PLAN: We will continue the patient on IV hydration. Refer the patient to GI, complaining of abdominal discomfort. Abdominal ultrasound is pending. Continue on Bentyl. We will also refer the patient to Psychiatry. correct lytes seen by dr cooper adjust laxatives
[2018-12-04] MEDS: D5-0.9NS w/KCL 20mEq 1,000 ML IV SCH (13:14)
--- NOTE | 2018-12-04 16:15 | Progress Notes ---
DATE: 12/04/[address] Serrano. pt is know to me as i saw her before covering for Dr. Serrano. The patient has been restless, irritable, unable to make decisions, suspicious, paranoid, but no major behavior problem. The patient was in ICU and currently on the medical floor. The patient denies any intent to harm herself or anyone, but she still has episodes of agitation. The patient is on Remeron 50 mg at bedtime and Zyprexa 5 mg daily with no side effects, no sedation, no nausea and no extrapyramidal symptoms. We will continue to monitor the patient. Thank you very much for allowing me to participate in the care of this most interesting lady. [facility]# [id number] MTDD
[2018-12-04] MEDS ORDERED: Lactulose 10 Gm/15 mL 30mL UDC PO SCH (17:00)
[2018-12-05 05:07] LABS: % EOSINOPHILS 11.4 % (0.0-5.0); % LYMPHOCYTES 20.7 % (20.0-50.0); % MONOCYTES 8.9 % (2.0-10.0); BASOPHILE ABSOLUTE 0.1 Th/cumm (0-0.2); EOSINOPHILE ABSOLUTE 0.6 Th/cmm (0.1-0.4); HEMATOCRIT 24.3 % (41.0-60); HEMOGLOBIN 8.1 gm/dL (12-16); LYMPHOCYTE ABSOLUTE 1.1 Th/cmm (1.5-3.0); MEAN CELL VOLUME 96.8 fl (81-100); MEAN CORPUSCULAR HEMOGLOBIN 32.3 pg (27.0-31.0); MEAN CORPUSCULAR HGB CONC 33.3 pg (28.0-36.0); MONOCYTE ABSOLUTE 0.5 Th/cmm (0.3-1.0); NEUTROPHILE ABSOLUTE 2.9 Th/cmm (1.8-8.0); PLATELET COUNT 189 Th/cmm (150-400); RED BLOOD COUNT 2.51 Mil/cmm (3.80-5.20); RED CELL DISTRIBUTION WIDTH 15.4 % (11.5-20.0); WHITE BLOOD COUNT 5.2 Th/cmm (4.8-10.8)
[2018-12-05 05:22] LABS: ANION GAP 12.1 (7.0-16.0); CALCIUM SERUM 8.6 mg/dL (8.6-10.3); CARBON DIOXIDE 33.5 mEq/L (21.0-31.0); GFR AFRICAN-AMERICAN 32.2 ml/min (>90); GFR NON AFRICAN-AMERICAN 26.6 ml/min; MAGNESIUM 1.9 mg/dL (1.9-2.7); POTASSIUM SERUM 3.6 mEq/L (3.5-5.1)
--- NOTE | 2018-12-05 07:55 | GI Progress Note ---
Subjective - Review of Systems Subjective: EATING BREAKFAST STILL HAS SMALL BM GI OBJECTIVE - Results Result Diagrams: 12/05/18 04:50 12/05/18 04:50 Recent Labs: Laboratory Last Values WBC 5.2 Th/cmm (4.8-10.8) 12/05/18 04:50 RBC 2.51 Mil/cmm (3.80-5.20) L 12/05/18 04:50 Hgb 8.1 gm/dL (12-16) L 12/05/18 04:50 Hct 24.3 % (41.0-60) L 12/05/18 04:50 MCV 96.8 fl (81-100) 12/05/18 04:50 MCH 32.3 pg (27.0-31.0) H 12/05/18 04:50 MCHC Differential 33.3 pg (28.0-36.0) 12/05/18 04:50 RDW 15.4 % (11.5-20.0) 12/05/18 04:50 Plt Count 189 Th/cmm (150-400) 12/05/18 04:50 MPV 8.6 fl 12/05/18 04:50 Neutrophils % 58.0 % (40.0-80.0) 12/05/18 04:50 Lymphocytes % 20.7 % (20.0-50.0) 12/05/18 04:50 Monocytes % 8.9 % (2.0-10.0) 12/05/18 04:50 Eosinophils % 11.4 % (0.0-5.0) H 12/05/18 04:50 Basophils % 1.0 % (0.0-2.0) 12/05/18 04:50 Sodium 138 mEq/L (136-145) 12/05/18 04:50 Potassium 3.6 mEq/L (3.5-5.1) 12/05/18 04:50 Chloride 96 mEq/L (98-107) L 12/05/18 04:50 Carbon Dioxide 33.5 mEq/L (21.0-31.0) H 12/05/18 04:50 Anion Gap 12.1 (7.0-16.0) 12/05/18 04:50 BUN 36 mg/dL (7-25) H 12/05/18 04:50 Creatinine 2.0 mg/dL (0.6-1.2) H 12/05/18 04:50 Est GFR ( Amer) 32.2 ml/min (>90) 12/05/18 04:50 Est GFR (Non-Af Amer) 26.6 ml/min 12/05/18 04:50 BUN/Creatinine Ratio 18.0 12/05/18 04:50 Glucose 84 mg/dL (70-105) 12/05/18 04:50 POC Glucose 124 MG/DL (70 - 105) H 12/03/18 21:59 Calcium 8.6 mg/dL (8.6-10.3) 12/05/18 04:50 Magnesium 1.9 mg/dL (1.9-2.7) 12/05/18 04:50 Total Bilirubin 0.3 mg/dL (0.3-1.0) 12/02/18 16:15 AST 13 U/L (13-39) 12/02/18 16:15 ALT 6 U/L (7-52) L 12/02/18 16:15 Alkaline Phosphatase 65 U/L (34-104) 12/02/18 16:15 Ammonia 26 umol/L (16-53) 12/04/18 06:20 B-Natriuretic Peptide 175.0 pg/mL (5.0-100.0) H 12/04/18 06:20 Total Protein 7.0 gm/dL (6.0-8.3) 12/02/18 16:15 Albumin 3.5 gm/dL (3.7-5.3) L 12/02/18 16:15 Globulin 3.5 gm/dL 12/02/18 16:15 Albumin/Globulin Ratio 1.0 (1.0-1.8) 12/02/18 16:15 Vitamin B12 734 pg/mL (232-1245) 12/02/18 16:15 Folic Acid >20.0 ng/mL (>3.0) 12/02/18 16:15 TSH 2.65 uIU/ml (0.34-5.60) 12/02/18 16:15 Urine Source CLEAN C 12/03/18 11:30 Urine Color YELLOW 12/03/18 11:30 Urine Clarity SLIGHTLY HAZY (CLEAR) 12/03/18 11:30 Urine pH 5.5 (4.6 - 8.0) 12/03/18 11:30 Ur Specific [place] 1.010 (1.005-1.030) 12/03/18 11:30 Urine Protein 30 mg/dL (NEGATIVE) H 12/03/18 11:30 Urine Glucose (UA) NEGATIVE mg/dL (NEGATIVE) 12/03/18 11:30 Urine Ketones NEGATIVE mg/dL (NEGATIVE) 12/03/18 11:30 Urine Blood TRACE (NEGATIVE) 12/03/18 11:30 Urine Nitrate NEGATIVE (NEGATIVE) 12/03/18 11:30 Urine Bilirubin NEGATIVE (NEGATIVE) 12/03/18 11:30 Urine Urobilinogen 0.2 E.U./dL (0.2 - 1.0) 12/03/18 11:30 Ur Leukocyte Esterase SMALL (NEGATIVE) H 12/03/18 11:30 Urine RBC 0-2 /hpf (0-5) 12/03/18 11:30 Urine WBC 2-5 /hpf (0-5) 12/03/18 11:30 Ur Epithelial Cells FEW /lpf (FEW) 12/03/18 11:30 Urine Bacteria NONE SEEN /hpf (NONE SEEN) 12/03/18 11:30 - Physical Exam Vitals and I&O: Vital Signs Temp 97 F 12/05/18 04:00 Pulse 60 12/05/18 04:00 Resp 20 12/05/18 04:00 BP 96/59 12/05/18 04:00 Pulse Ox 95 12/05/18 04:00 Intake & Output 12/04/18 12/05/18 12/05/18 18:59 06:59 18:59 Intake Total 400 300 Output Total 200 Balance 200 300 Weight (lbs) 48.897 kg 48.534 kg Intake: Oral 400 300 Output: Emesis 200 Other: # Voids 2 3 # Bowel Movements 1 1 Stool Characteristics Brown Soft Weight Source Bedscale Bedscale Active Medications: Current Medications Acetaminophen (Tylenol) 650 mg PO Q4H PRN PRN Reason: Mild Pain Or Fever above 101 Stop: 01/31/19 15:59 Last Admin: 12/03/18 18:15 Dose: 650 mg Albuterol Sulfate (Albuterol 2.5mg/3ml Neb Ud) 2.5 mg HHN Q2HRT PRN PRN Reason: Shortness of Breath or Wheeze Stop: 01/31/19 15:59 Bisacodyl (Dulcolax 5 Mg Ec Tab) 10 mg PO X1 ONE Stop: 12/05/18 07:53 Dicyclomine HCl (Bentyl) 20 mg PO TID MELANIE Stop: 01/31/19 20:59 Last Admin: 12/04/18 21:13 Dose: 20 mg Docusate Sodium (Colace) 100 mg PO BID MELANIE Stop: 01/31/19 16:59 Last Admin: 12/04/18 16:15 Dose: 100 mg Fludrocortisone Acetate (Florinef) 0.1 mg PO DAILY MELANIE Stop: 02/01/19 12:10 Last Admin: 12/04/18 08:28 Dose: 0.1 mg Haloperidol (Haldol) 5 mg PO BID MELANIE; Protocol Stop: 01/31/19 16:59 Last Admin: 12/04/18 16:14 Dose: Not Given Heparin Sodium (Porcine) (Heparin) 5,000 units SUBQ Q12H MELANIE Stop: 02/01/19 20:59 Last Admin: 12/04/18 21:14 Dose: 5,000 units Potassium Chloride/Dextrose/Sod Cl (D5-0.9ns W/Kcl 20meq) 1,000 mls @ 50 mls/ hr IV .Q20H MELANIE Stop: 02/02/19 13:14 Last Admin: 12/04/18 13:14 Dose: 50 mls/hr Ipratropium [place] (Atrovent Neb 0.5mg/2.5ml) 0.5 mg IH Q2HRT PRN PRN Reason: Shortness of Breath or Wheeze Stop: 01/31/19 15:59 Levothyroxine Sodium (Synthroid) 0.15 mg PO QDAC MELANIE Stop: 02/01/19 07:29 Last Admin: 12/04/18 06:44 Dose: 0.15 mg Lorazepam (Ativan) 2 mg IM Q4HR PRN; Protocol PRN Reason: Anxiety Stop: 02/01/19 07:10 Last Admin: 12/03/18 07:38 Dose: 2 mg Mirtazapine (Remeron) 15 mg PO HS MELANIE; Protocol Stop: 01/31/19 20:59 Last Admin: 12/04/18 21:13 Dose: 15 mg Morphine Sulfate (Morphine) 2 mg IVP Q4H PRN PRN Reason: Pain (Severe) Stop: 01/31/19 15:59 Last Admin: 12/04/18 16:13 Dose: 2 mg Multivitamins/Vitamin C (Theragran) 1 tab PO DAILY MELANIE Stop: 02/01/19 08:59 Last Admin: 12/04/18 08:30 Dose: 1 tab Olanzapine (Zyprexa Zydis) 5 mg PO DAILY MELANIE; Protocol Stop: 02/01/19 08:59 Last Admin: 12/04/18 08:30 Dose: 5 mg Ondansetron HCl (Zofran) 4 mg IV Q8H PRN PRN Reason: Nausea / Vomiting Stop: 01/31/19 15:59 Last Admin: 12/03/18 22:43 Dose: 4 mg Polyethylene Glycol (Miralax) 17 gm PO DAILY MELANIE Stop: 02/01/19 08:59 Last Admin: 12/04/18 08:28 Dose: 17 gm - Procedures Procedures: Procedures Procedure Code Date OTHER GROUP THERAPY 94.44 01/13/11 RECREATIONAL THERAPY 93.81 01/13/11 Assessment/Plan - Assessment Assessment: 63 YO FEMALE WITH CONSTIPATION SEEN ON CT ALSO HAS G TUBE FOR VENTING PURPOSES PT CARMEN PO DIET 1.CONT SUPP CARE 2.D/C LACTULOSE 3.CONT COLACE AND MIRALAX 4.DULCOLAX AND TAP WATER ENEMA 5.KUB IN AM
[2018-12-05] MEDS: Multivitamin Tab PO SCH (08:16)
[2018-12-05] MEDS: Levothyroxine 0.075 Mg Tab PO SCH (08:17)
[2018-12-05] MEDS: Dicyclomine 10 mg Cap PO SCH ×3 (08:17→20:13)
[2018-12-05] MEDS: Heparin Sod 5,000Units/ML 5,000 UNITS/ML VIAL SUBQ SCH ×2 (08:19→20:14)
[2018-12-05] MEDS: POLYETHYLENE GLYCOL 3350 17 GM PACK PO SCH (08:19)
--- NOTE | 2018-12-05 09:15 | Diagnostic Imaging Report ---
KUB single view HISTORY: Constipation COMPARISON: None FINDINGS: There is significant stool throughout the colon with gas-filled loops of bowel. Percutaneous feeding tube is noted. Osseous structures are intact. IMPRESSION: Significant stool throughout the colon with gas-filled loops of bowel. Clinical correlation and follow-up recommended.
--- NOTE | 2018-12-05 12:39 | Internal Medicine Prog Note ---
Internal Medicine Subjective - Subjective Patient seen and examined:: with staff, chart reviewed, other (eating better) Patient is:: awake, verbal, interactive, in wheelchair, talking Patient Complaints of:: unable to sleep Per staff patient has:: no adverse event, no episodes of fall, poor appetite, tolerating meds Internal Medicine Objective - Results Result Diagrams: 12/05/18 04:50 12/05/18 04:50 Recent Labs: Laboratory Last Values WBC 5.2 Th/cmm (4.8-10.8) 12/05/18 04:50 RBC 2.51 Mil/cmm (3.80-5.20) L 12/05/18 04:50 Hgb 8.1 gm/dL (12-16) L 12/05/18 04:50 Hct 24.3 % (41.0-60) L 12/05/18 04:50 MCV 96.8 fl (81-100) 12/05/18 04:50 MCH 32.3 pg (27.0-31.0) H 12/05/18 04:50 MCHC Differential 33.3 pg (28.0-36.0) 12/05/18 04:50 RDW 15.4 % (11.5-20.0) 12/05/18 04:50 Plt Count 189 Th/cmm (150-400) 12/05/18 04:50 MPV 8.6 fl 12/05/18 04:50 Neutrophils % 58.0 % (40.0-80.0) 12/05/18 04:50 Lymphocytes % 20.7 % (20.0-50.0) 12/05/18 04:50 Monocytes % 8.9 % (2.0-10.0) 12/05/18 04:50 Eosinophils % 11.4 % (0.0-5.0) H 12/05/18 04:50 Basophils % 1.0 % (0.0-2.0) 12/05/18 04:50 Sodium 138 mEq/L (136-145) 12/05/18 04:50 Potassium 3.6 mEq/L (3.5-5.1) 12/05/18 04:50 Chloride 96 mEq/L (98-107) L 12/05/18 04:50 Carbon Dioxide 33.5 mEq/L (21.0-31.0) H 12/05/18 04:50 Anion Gap 12.1 (7.0-16.0) 12/05/18 04:50 BUN 36 mg/dL (7-25) H 12/05/18 04:50 Creatinine 2.0 mg/dL (0.6-1.2) H 12/05/18 04:50 Est GFR ( Amer) 32.2 ml/min (>90) 12/05/18 04:50 Est GFR (Non-Af Amer) 26.6 ml/min 12/05/18 04:50 BUN/Creatinine Ratio 18.0 12/05/18 04:50 Glucose 84 mg/dL (70-105) 12/05/18 04:50 POC Glucose 124 MG/DL (70 - 105) H 12/03/18 21:59 Calcium 8.6 mg/dL (8.6-10.3) 12/05/18 04:50 Magnesium 1.9 mg/dL (1.9-2.7) 12/05/18 04:50 Total Bilirubin 0.3 mg/dL (0.3-1.0) 12/02/18 16:15 AST 13 U/L (13-39) 12/02/18 16:15 ALT 6 U/L (7-52) L 12/02/18 16:15 Alkaline Phosphatase 65 U/L (34-104) 12/02/18 16:15 Ammonia 26 umol/L (16-53) 12/04/18 06:20 B-Natriuretic Peptide 175.0 pg/mL (5.0-100.0) H 12/04/18 06:20 Total Protein 7.0 gm/dL (6.0-8.3) 12/02/18 16:15 Albumin 3.5 gm/dL (3.7-5.3) L 12/02/18 16:15 Globulin 3.5 gm/dL 12/02/18 16:15 Albumin/Globulin Ratio 1.0 (1.0-1.8) 12/02/18 16:15 Vitamin B12 734 pg/mL (232-1245) 12/02/18 16:15 Folic Acid >20.0 ng/mL (>3.0) 12/02/18 16:15 TSH 2.65 uIU/ml (0.34-5.60) 12/02/18 16:15 Urine Source CLEAN C 12/03/18 11:30 Urine Color YELLOW 12/03/18 11:30 Urine Clarity SLIGHTLY HAZY (CLEAR) 12/03/18 11:30 Urine pH 5.5 (4.6 - 8.0) 12/03/18 11:30 Ur Specific [place] 1.010 (1.005-1.030) 12/03/18 11:30 Urine Protein 30 mg/dL (NEGATIVE) H 12/03/18 11:30 Urine Glucose (UA) NEGATIVE mg/dL (NEGATIVE) 12/03/18 11:30 Urine Ketones NEGATIVE mg/dL (NEGATIVE) 12/03/18 11:30 Urine Blood TRACE (NEGATIVE) 12/03/18 11:30 Urine Nitrate NEGATIVE (NEGATIVE) 12/03/18 11:30 Urine Bilirubin NEGATIVE (NEGATIVE) 12/03/18 11:30 Urine Urobilinogen 0.2 E.U./dL (0.2 - 1.0) 12/03/18 11:30 Ur Leukocyte Esterase SMALL (NEGATIVE) H 12/03/18 11:30 Urine RBC 0-2 /hpf (0-5) 12/03/18 11:30 Urine WBC 2-5 /hpf (0-5) 12/03/18 11:30 Ur Epithelial Cells FEW /lpf (FEW) 12/03/18 11:30 Urine Bacteria NONE SEEN /hpf (NONE SEEN) 12/03/18 11:30 - Physical Exam Vitals and I&O: Vital Signs Temp 98.6 F 12/05/18 11:58 Pulse 74 12/05/18 11:58 Resp 16 12/05/18 11:58 BP 92/62 12/05/18 11:58 Pulse Ox 94 12/05/18 11:58 Intake & Output 12/04/18 12/05/18 12/05/18 18:59 06:59 18:59 Intake Total 400 300 Output Total 200 Balance 200 300 Weight (lbs) 48.897 kg 48.534 kg Intake: Oral 400 300 Output: Emesis 200 Other: # Voids 2 3 # Bowel Movements 1 1 Stool Characteristics Brown Soft Soft Weight Source Bedscale Bedscale Active Medications: Current Medications Acetaminophen (Tylenol) 650 mg PO Q4H PRN PRN Reason: Mild Pain Or Fever above 101 Stop: 01/31/19 15:59 Last Admin: 12/05/18 11:02 Dose: 650 mg Albuterol Sulfate (Albuterol 2.5mg/3ml Neb Ud) 2.5 mg HHN Q2HRT PRN PRN Reason: Shortness of Breath or Wheeze Stop: 01/31/19 15:59 Dicyclomine HCl (Bentyl) [address] [facility] Stop: 01/31/19 20:59 Last Admin: 12/05/18 08:17 Dose: 20 mg Haloperidol (Haldol) [address] [facility]; Protocol Stop: 01/31/19 16:59 Last Admin: 12/05/18 09:57 Dose: Not Given Heparin Sodium (Porcine) (Heparin) 5,[address] [facility] Stop: 02/01/19 20:59 Last Admin: 12/05/18 08:19 Dose: 5,000 units Potassium Chloride/Dextrose/Sod Cl (D5-0.9ns W/Kcl 20meq) 1,000 mls @ 50 mls/ hr IV .Q20H [facility] Stop: 02/02/19 13:14 Last Admin: 12/04/18 13:14 Dose: 50 mls/hr Ipratropium [place] (Atrovent Neb 0.5mg/2.5ml) 0.5 mg IH Q2HRT PRN PRN Reason: Shortness of Breath or Wheeze Stop: 01/31/19 15:59 Levothyroxine Sodium (Synthroid) 0.[address] [facility] Stop: 02/01/19 07:29 Last Admin: 12/05/18 08:17 Dose: 0.15 mg Lorazepam (Ativan) 2 mg IM Q4HR PRN; Protocol PRN Reason: Anxiety Stop: 02/01/19 07:10 Last Admin: 12/03/18 07:38 Dose: 2 mg Midodrine (Proamatine) [address] [facility] Stop: 02/03/19 13:59 Mirtazapine (Remeron) [address] [facility]; Protocol Stop: 01/31/19 20:59 Last Admin: 12/04/18 21:13 Dose: 15 mg Morphine Sulfate (Morphine) 2 mg IVP Q4H PRN PRN Reason: Pain (Severe) Stop: 01/31/19 15:59 Last Admin: 08/17/19 16:13 Dose: 2 mg Multivitamins/Vitamin C (Theragran) 1 tab PO DAILY [facility] Stop: 02/01/19 08:59 Last Admin: 12/05/18 08:16 Dose: 1 tab Olanzapine (Zyprexa Zydis) 5 mg PO DAILY [facility]; Protocol Stop: 02/01/19 08:59 Last Admin: 12/04/18 08:30 Dose: 5 mg Ondansetron HCl (Zofran) 4 mg IV Q8H PRN PRN Reason: Nausea / Vomiting Stop: 01/31/19 15:59 Last Admin: 12/03/18 22:43 Dose: 4 mg Polyethylene Glycol (Miralax) 17 gm PO DAILY [facility] Stop: 02/01/19 08:59 Last Admin: 12/05/18 08:19 Dose: 17 gm General: alert, bilateral temporal wasting HEENT: NC/AT, PERRLA, EOMI, thinning hair Neck: Supple, No JVD, No thyromegaly Lungs: CTAB, chest deformity present Cardiovascular: RRR, Normal S1, Normal S2 Abdomen: soft, thin, +GT, positive bowel sound Extremities: excoriation Neurological: no change - Procedures Procedures: Procedures Procedure Code Date OTHER GROUP THERAPY 94.44 01/13/11 RECREATIONAL THERAPY 93.81 01/13/11 Internal Medicine Assmt/Plan - Assessment Assessment: ASSESSMENT AND PLAN: Hypertension, dysphagia with G-tube, COPD, dementia, hypothyroidism, degenerative joint disease, anemia, constipation, chronic renal insufficiency, proteinuria. - Plan Plan: PLAN: We will continue the patient on IV hydration. Refer the patient to GI, complaining of abdominal discomfort. Abdominal ultrasound is pending. Continue on Bentyl. We will also refer the patient to Psychiatry. correct lytes seen by dr cooper adjust laxatives
--- NOTE | 2018-12-05 14:47 | Progress Notes ---
DATE: 12/05/[address] Serrano. Case was discussed with staff of the patient, reviewed records. She continues to have poor insight. She continues to be unable to make decisions, suspicious, paranoid, but no behavior problem. The patient was seen by Dr. Tubbs, the salesperson [employer] today and the patient has a G-tube for venting purpose. She has marked constipation. The patient had hypertension, dysphagia, G-tube, COPD, dementia, hypothyroidism, joint disease, proteinuria. She has been hydrated intravenously and the patient may go back to [facility] if still symptomatic and Dr. Serrano will follow up with the patient tomorrow. We will continue outpatient group. Thank you very much for allowing me to participate in the care of this most interesting lady. [facility]# [id number]
[2018-12-05] MEDS: Morphine Sulfate 2 mg/mL 1mL Syr IVP PRN (15:07)
[2018-12-05] MEDS: OLANZapine 5 mg Oral Disintegrating Tab PO SCH (16:02)
[2018-12-06] MEDS: Levothyroxine 0.075 Mg Tab PO SCH (06:30)
[2018-12-06] MEDS: D5-0.9NS w/KCL 20mEq 1,000 ML IV SCH (07:52)
[2018-12-06] MEDS: Multivitamin Tab PO SCH (08:04)
[2018-12-06] MEDS: Dicyclomine 10 mg Cap PO SCH ×3 (08:04→21:09)
[2018-12-06] MEDS: POLYETHYLENE GLYCOL 3350 17 GM PACK PO SCH (08:04)
[2018-12-06] MEDS: Heparin Sod 5,000Units/ML 5,000 UNITS/ML VIAL SUBQ SCH ×2 (08:05→21:10)
[2018-12-06] MEDS: OLANZapine 5 mg Oral Disintegrating Tab PO SCH (08:05)
--- NOTE | 2018-12-06 09:33 | History & Physical ---
ADMIT DATE: SUBJECTIVE: Chart reviewed and the patient interviewed. Also discussed the patient's condition with the staff and reviewed records and labs. The patient seems to be sedated. The patient also is still complaining of nausea and vomiting. She also still has poor appetite. OBJECTIVE: VITAL SIGNS: Runs into low blood pressure. Otherwise, the patient seems to be slightly more cooperative with her treatment than last time I saw her, and she is more compliant most of the time. Otherwise, no side effects of medications. ASSESSMENT: The patient still needs close monitoring, and continue her treatment and her medical followup. JOB# [id number]
--- NOTE | 2018-12-06 12:33 | Internal Medicine Prog Note ---
Internal Medicine Subjective - Subjective Patient seen and examined:: with staff, chart reviewed, other (c/o being nauseu) Patient is:: awake, verbal, interactive, in wheelchair, talking Patient Complaints of:: unable to sleep Per staff patient has:: no adverse event, no episodes of fall, poor appetite, tolerating meds Internal Medicine Objective - Results Result Diagrams: 12/05/18 04:50 12/05/18 04:50 Recent Labs: Laboratory Last Values WBC 5.2 Th/cmm (4.8-10.8) 12/05/18 04:50 RBC 2.51 Mil/cmm (3.80-5.20) L 12/05/18 04:50 Hgb 8.1 gm/dL (12-16) L 12/05/18 04:50 Hct 24.3 % (41.0-60) L 12/05/18 04:50 MCV 96.8 fl (81-100) 12/05/18 04:50 MCH 32.3 pg (27.0-31.0) H 12/05/18 04:50 MCHC Differential 33.3 pg (28.0-36.0) 12/05/18 04:50 RDW 15.4 % (11.5-20.0) 12/05/18 04:50 Plt Count 189 Th/cmm (150-400) 12/05/18 04:50 MPV 8.6 fl 12/05/18 04:50 Neutrophils % 58.0 % (40.0-80.0) 12/05/18 04:50 Lymphocytes % 20.7 % (20.0-50.0) 12/05/18 04:50 Monocytes % 8.9 % (2.0-10.0) 12/05/18 04:50 Eosinophils % 11.4 % (0.0-5.0) H 12/05/18 04:50 Basophils % 1.0 % (0.0-2.0) 12/05/18 04:50 Sodium 138 mEq/L (136-145) 12/05/18 04:50 Potassium 3.6 mEq/L (3.5-5.1) 12/05/18 04:50 Chloride 96 mEq/L (98-107) L 12/05/18 04:50 Carbon Dioxide 33.5 mEq/L (21.0-31.0) H 12/05/18 04:50 Anion Gap 12.1 (7.0-16.0) 12/05/18 04:50 BUN 36 mg/dL (7-25) H 12/05/18 04:50 Creatinine 2.0 mg/dL (0.6-1.2) H 12/05/18 04:50 Est GFR ( Amer) 32.2 ml/min (>90) 12/05/18 04:50 Est GFR (Non-Af Amer) 26.6 ml/min 12/05/18 04:50 BUN/Creatinine Ratio 18.0 12/05/18 04:50 Glucose 84 mg/dL (70-105) 12/05/18 04:50 POC Glucose 124 MG/DL (70 - 105) H 12/03/18 21:59 Calcium 8.6 mg/dL (8.6-10.3) 12/05/18 04:50 Magnesium 1.9 mg/dL (1.9-2.7) 12/05/18 04:50 Total Bilirubin 0.3 mg/dL (0.3-1.0) 12/02/18 16:15 AST 13 U/L (13-39) 12/02/18 16:15 ALT 6 U/L (7-52) L 12/02/18 16:15 Alkaline Phosphatase 65 U/L (34-104) 12/02/18 16:15 Ammonia 26 umol/L (16-53) 12/04/18 06:20 B-Natriuretic Peptide 175.0 pg/mL (5.0-100.0) H 12/04/18 06:20 Total Protein 7.0 gm/dL (6.0-8.3) 12/02/18 16:15 Albumin 3.5 gm/dL (3.7-5.3) L 12/02/18 16:15 Globulin 3.5 gm/dL 12/02/18 16:15 Albumin/Globulin Ratio 1.0 (1.0-1.8) 12/02/18 16:15 Vitamin B12 734 pg/mL (232-1245) 12/02/18 16:15 Folic Acid >20.0 ng/mL (>3.0) 12/02/18 16:15 TSH 2.65 uIU/ml (0.34-5.60) 12/02/18 16:15 Urine Source CLEAN C 12/03/18 11:30 Urine Color YELLOW 12/03/18 11:30 Urine Clarity SLIGHTLY HAZY (CLEAR) 12/03/18 11:30 Urine pH 5.5 (4.6 - 8.0) 12/03/18 11:30 Ur Specific [place] 1.010 (1.005-1.030) 12/03/18 11:30 Urine Protein 30 mg/dL (NEGATIVE) H 12/03/18 11:30 Urine Glucose (UA) NEGATIVE mg/dL (NEGATIVE) 12/03/18 11:30 Urine Ketones NEGATIVE mg/dL (NEGATIVE) 12/03/18 11:30 Urine Blood TRACE (NEGATIVE) 12/03/18 11:30 Urine Nitrate NEGATIVE (NEGATIVE) 12/03/18 11:30 Urine Bilirubin NEGATIVE (NEGATIVE) 12/03/18 11:30 Urine Urobilinogen 0.2 E.U./dL (0.2 - 1.0) 12/03/18 11:30 Ur Leukocyte Esterase SMALL (NEGATIVE) H 12/03/18 11:30 Urine RBC 0-2 /hpf (0-5) 12/03/18 11:30 Urine WBC 2-5 /hpf (0-5) 12/03/18 11:30 Ur Epithelial Cells FEW /lpf (FEW) 12/03/18 11:30 Urine Bacteria NONE SEEN /hpf (NONE SEEN) 12/03/18 11:30 - Physical Exam Vitals and I&O: Vital Signs Temp 98.2 F 12/06/18 11:32 Pulse 69 12/06/18 11:32 Resp 18 12/06/18 11:32 BP 101/59 12/06/18 11:32 Pulse Ox 98 12/06/18 11:32 Intake & Output 12/05/18 12/06/18 12/06/18 18:59 06:59 18:59 Intake Total 1150 120 Balance 1150 120 Weight (lbs) 48.534 kg 48.534 kg Intake: Oral 1150 120 Other: # Voids 3 4 # Bowel Movements 2 2 Stool Characteristics Soft Weight Source Bedscale Bedscale Active Medications: Current Medications Acetaminophen (Tylenol) 650 mg PO Q4H PRN PRN Reason: Mild Pain Or Fever above 101 Stop: 01/31/19 15:59 Last Admin: 12/05/18 11:02 Dose: 650 mg Albuterol Sulfate (Albuterol 2.5mg/3ml Neb Ud) 2.5 mg HHN Q2HRT PRN PRN Reason: Shortness of Breath or Wheeze Stop: 01/31/19 15:59 Dicyclomine HCl (Bentyl) 20 mg PO TID [facility] Stop: 01/31/19 20:59 Last Admin: 12/06/18 08:04 Dose: 20 mg Docusate Sodium (Colace) 250 mg PO BID [facility] Stop: 02/03/19 16:59 Last Admin: 12/06/18 08:04 Dose: 250 mg Haloperidol (Haldol) 5 mg PO BID [facility]; Protocol Stop: 01/31/19 16:59 Last Admin: 12/06/18 08:05 Dose: Not Given Heparin Sodium (Porcine) (Heparin) 5,000 units SUBQ Q12H [facility] Stop: 02/01/19 20:59 Last Admin: 12/06/18 08:05 Dose: Not Given Potassium Chloride/Dextrose/Sod Cl (D5-0.9ns W/Kcl 20meq) 1,000 mls @ 50 mls/ hr IV .Q20H [facility] Stop: 02/02/19 13:14 Last Admin: 12/06/18 07:52 Dose: Not Given Ipratropium [place] (Atrovent Neb 0.5mg/2.5ml) 0.5 mg IH Q2HRT PRN PRN Reason: Shortness of Breath or Wheeze Stop: 01/31/19 15:59 Levothyroxine Sodium (Synthroid) 0.15 mg PO QDAC [facility] Stop: 02/01/19 07:29 Last Admin: 12/06/18 06:30 Dose: 0.15 mg Lorazepam (Ativan) 2 mg IM Q4HR PRN; Protocol PRN Reason: Anxiety Stop: 02/01/19 07:10 Last Admin: 12/03/18 07:38 Dose: 2 mg Midodrine (Proamatine) 5 mg PO TID [facility] Stop: 02/03/19 13:59 Last Admin: 12/06/18 08:04 Dose: 5 mg Mirtazapine (Remeron) 15 mg PO HS [facility]; Protocol Stop: 10/14/19 20:59 Last Admin: 12/05/18 20:13 Dose: 15 mg Morphine Sulfate (Morphine) 2 mg IVP Q4H PRN PRN Reason: Pain (Severe) Stop: 01/31/19 15:59 Last Admin: 12/05/18 15:07 Dose: 2 mg Multivitamins/Vitamin C (Theragran) 1 tab PO DAILY [facility] Stop: 02/01/19 08:59 Last Admin: 12/06/18 08:04 Dose: 1 tab Olanzapine (Zyprexa Zydis) 5 mg PO DAILY [facility]; Protocol Stop: 02/01/19 08:59 Last Admin: 12/06/18 08:05 Dose: Not Given Ondansetron HCl (Zofran) 4 mg IV Q8H PRN PRN Reason: Nausea / Vomiting Stop: 01/31/19 15:59 Last Admin: 12/06/18 09:59 Dose: 4 mg Polyethylene Glycol (Miralax) 17 gm PO DAILY [facility] Stop: 02/01/19 08:59 Last Admin: 12/06/18 08:04 Dose: 17 gm General: alert, bilateral temporal wasting HEENT: NC/AT, PERRLA, EOMI, thinning hair Neck: Supple, No JVD, No thyromegaly Lungs: CTAB, chest deformity present Cardiovascular: RRR, Normal S1, Normal S2 Abdomen: soft, thin, +GT, positive bowel sound Extremities: excoriation Neurological: no change - Procedures Procedures: Procedures Procedure Code Date OTHER GROUP THERAPY 94.44 01/13/11 RECREATIONAL THERAPY 93.81 01/13/11 Internal Medicine Assmt/Plan - Assessment Assessment: ASSESSMENT AND PLAN: Hypertension, dysphagia with G-tube, COPD, dementia, hypothyroidism, degenerative joint disease, anemia, constipation, chronic renal insufficiency, proteinuria. nausea - Plan Plan: PLAN: We will continue the patient on IV hydration. Refer the patient to GI, complaining of abdominal discomfort. Abdominal ultrasound is pending. Continue on Bentyl. We will also refer the patient to Psychiatry. correct lytes seen by dr cooper adjust laxatives check kub
--- NOTE | 2018-12-06 14:25 | GI Progress Note ---
Subjective - Review of Systems Service Date: 12/06/18 Events since last encounter: Had two bowel movements today GI OBJECTIVE - Results Result Diagrams: 12/05/18 04:50 12/05/18 04:50 Recent Labs: Laboratory Last Values WBC 5.2 Th/cmm (4.8-10.8) 12/05/18 04:50 RBC 2.51 Mil/cmm (3.80-5.20) L 12/05/18 04:50 Hgb 8.1 gm/dL (12-16) L 12/05/18 04:50 Hct 24.3 % (41.0-60) L 12/05/18 04:50 MCV 96.8 fl (81-100) 12/05/18 04:50 MCH 32.3 pg (27.0-31.0) H 12/05/18 04:50 MCHC Differential 33.3 pg (28.0-36.0) 12/05/18 04:50 RDW 15.4 % (11.5-20.0) 12/05/18 04:50 Plt Count 189 Th/cmm (150-400) 12/05/18 04:50 MPV 8.6 fl 12/05/18 04:50 Neutrophils % 58.0 % (40.0-80.0) 12/05/18 04:50 Lymphocytes % 20.7 % (20.0-50.0) 12/05/18 04:50 Monocytes % 8.9 % (2.0-10.0) 12/05/18 04:50 Eosinophils % 11.4 % (0.0-5.0) H 12/05/18 04:50 Basophils % 1.0 % (0.0-2.0) 12/05/18 04:50 Sodium 138 mEq/L (136-145) 12/05/18 04:50 Potassium 3.6 mEq/L (3.5-5.1) 12/05/18 04:50 Chloride 96 mEq/L (98-107) L 12/05/18 04:50 Carbon Dioxide 33.5 mEq/L (21.0-31.0) H 12/05/18 04:50 Anion Gap 12.1 (7.0-16.0) 12/05/18 04:50 BUN 36 mg/dL (7-25) H 12/05/18 04:50 Creatinine 2.0 mg/dL (0.6-1.2) H 12/05/18 04:50 Est GFR ( Amer) 32.2 ml/min (>90) 12/05/18 04:50 Est GFR (Non-Af Amer) 26.6 ml/min 12/05/18 04:50 BUN/Creatinine Ratio 18.0 12/05/18 04:50 Glucose 84 mg/dL (70-105) 12/05/18 04:50 POC Glucose 124 MG/DL (70 - 105) H 12/03/18 21:59 Calcium 8.6 mg/dL (8.6-10.3) 12/05/18 04:50 Magnesium 1.9 mg/dL (1.9-2.7) 12/05/18 04:50 Total Bilirubin 0.3 mg/dL (0.3-1.0) 12/02/18 16:15 AST 13 U/L (13-39) 12/02/18 16:15 ALT 6 U/L (7-52) L 12/02/18 16:15 Alkaline Phosphatase 65 U/L (34-104) 12/02/18 16:15 Ammonia 26 umol/L (16-53) 12/04/18 06:20 B-Natriuretic Peptide 175.0 pg/mL (5.0-100.0) H 12/04/18 06:20 Total Protein 7.0 gm/dL (6.0-8.3) 12/02/18 16:15 Albumin 3.5 gm/dL (3.7-5.3) L 12/02/18 16:15 Globulin 3.5 gm/dL 12/02/18 16:15 Albumin/Globulin Ratio 1.0 (1.0-1.8) 12/02/18 16:15 Vitamin B12 734 pg/mL (232-1245) 12/02/18 16:15 Folic Acid >20.0 ng/mL (>3.0) 12/02/18 16:15 TSH 2.65 uIU/ml (0.34-5.60) 12/02/18 16:15 Urine Source CLEAN C 12/03/18 11:30 Urine Color YELLOW 12/03/18 11:30 Urine Clarity SLIGHTLY HAZY (CLEAR) 12/03/18 11:30 Urine pH 5.5 (4.6 - 8.0) 12/03/18 11:30 Ur Specific [place] 1.010 (1.005-1.030) 12/03/18 11:30 Urine Protein 30 mg/dL (NEGATIVE) H 12/03/18 11:30 Urine Glucose (UA) NEGATIVE mg/dL (NEGATIVE) 12/03/18 11:30 Urine Ketones NEGATIVE mg/dL (NEGATIVE) 12/03/18 11:30 Urine Blood TRACE (NEGATIVE) 12/03/18 11:30 Urine Nitrate NEGATIVE (NEGATIVE) 12/03/18 11:30 Urine Bilirubin NEGATIVE (NEGATIVE) 12/03/18 11:30 Urine Urobilinogen 0.2 E.U./dL (0.2 - 1.0) 12/03/18 11:30 Ur Leukocyte Esterase SMALL (NEGATIVE) H 12/03/18 11:30 Urine RBC 0-2 /hpf (0-5) 12/03/18 11:30 Urine WBC 2-5 /hpf (0-5) 12/03/18 11:30 Ur Epithelial Cells FEW /lpf (FEW) 12/03/18 11:30 Urine Bacteria NONE SEEN /hpf (NONE SEEN) 12/03/18 11:30 - Physical Exam Vitals and I&O: Vital Signs Temp 98.2 F 12/06/18 11:32 Pulse 69 12/06/18 11:32 Resp 18 12/06/18 11:32 BP 101/59 12/06/18 11:32 Pulse Ox 98 12/06/18 11:32 Intake & Output 12/05/18 12/06/18 12/06/18 18:59 06:59 18:59 Intake Total 1150 120 Balance 1150 120 Weight (lbs) 48.534 kg 48.534 kg Intake: Oral 1150 120 Other: # Voids 3 4 # Bowel Movements 2 2 Stool Characteristics Soft Weight Source Bedscale Bedscale Active Medications: Current Medications Acetaminophen (Tylenol) 650 mg PO Q4H PRN PRN Reason: Mild Pain Or Fever above 101 Stop: 01/31/19 15:59 Last Admin: 12/05/18 11:02 Dose: 650 mg Albuterol Sulfate (Albuterol 2.5mg/3ml Neb Ud) 2.5 mg HHN Q2HRT PRN PRN Reason: Shortness of Breath or Wheeze Stop: 01/31/19 15:59 Dicyclomine HCl (Bentyl) 20 mg PO TID [facility] Stop: 01/31/19 20:59 Last Admin: 12/06/18 13:15 Dose: 20 mg Docusate Sodium (Colace) 250 mg PO BID [facility] Stop: 02/03/19 16:59 Last Admin: 12/06/18 08:04 Dose: 250 mg Haloperidol (Haldol) 5 mg PO BID [facility]; Protocol Stop: 01/31/19 16:59 Last Admin: 12/06/18 08:05 Dose: Not Given Heparin Sodium (Porcine) (Heparin) 5,000 units SUBQ Q12H [facility] Stop: 02/01/19 20:59 Last Admin: 12/06/18 08:05 Dose: Not Given Potassium Chloride/Dextrose/Sod Cl (D5-0.9ns W/Kcl 20meq) 1,000 mls @ 50 mls/ hr IV .Q20H [facility] Stop: 02/02/19 13:14 Last Admin: 12/06/18 07:52 Dose: Not Given Ipratropium [place] (Atrovent Neb 0.5mg/2.5ml) 0.5 mg IH Q2HRT PRN PRN Reason: Shortness of Breath or Wheeze Stop: 01/31/19 15:59 Levothyroxine Sodium (Synthroid) 0.15 mg PO QDAC [facility] Stop: 02/01/19 07:29 Last Admin: 12/06/18 06:30 Dose: 0.15 mg Lorazepam (Ativan) 2 mg IM Q4HR PRN; Protocol PRN Reason: Anxiety Stop: 02/01/19 07:10 Last Admin: 12/03/18 07:38 Dose: 2 mg Midodrine (Proamatine) 5 mg PO TID [facility] Stop: 02/03/19 13:59 Last Admin: 12/06/18 13:15 Dose: 5 mg Mirtazapine (Remeron) 15 mg PO HS [facility]; Protocol Stop: 01/31/19 20:59 Last Admin: 12/05/18 20:13 Dose: 15 mg Morphine Sulfate (Morphine) 2 mg IVP Q4H PRN PRN Reason: Pain (Severe) Stop: 01/31/19 15:59 Last Admin: 12/05/18 15:07 Dose: 2 mg Multivitamins/Vitamin C (Theragran) 1 tab PO DAILY [facility] Stop: 02/01/19 08:59 Last Admin: 12/06/18 08:04 Dose: 1 tab Olanzapine (Zyprexa Zydis) 5 mg PO DAILY [facility]; Protocol Stop: 02/01/19 08:59 Last Admin: 12/06/18 08:05 Dose: Not Given Ondansetron HCl (Zofran) 4 mg IV Q8H PRN PRN Reason: Nausea / Vomiting Stop: 01/31/19 15:59 Last Admin: 12/06/18 09:59 Dose: 4 mg Polyethylene Glycol (Miralax) 17 gm PO DAILY MELANIE Stop: 02/01/19 08:59 Last Admin: 12/06/18 08:04 Dose: 17 gm General: Alert, Oriented x3 HEENT: PERRLA Cardiovascular: Regular rate, Normal S1 Lungs: Clear to auscultation Abdomen: Bowel sounds - Procedures Procedures: Procedures Procedure Code Date OTHER GROUP THERAPY 94.44 01/13/11 RECREATIONAL THERAPY 93.81 01/13/11 Assessment/Plan - Assessment Assessment: 63 yo female with G tube for venting purposes found to have constipation -continue with miralax and enemas -okay to feed -prn zofran -supportive management
[2018-12-07 06:06] LABS: FOLIC ACID >20.0 ng/mL (>3.0)
[2018-12-07] MEDS: Levothyroxine 0.075 Mg Tab PO SCH (06:48)
[2018-12-07] MEDS: D5-0.9NS w/KCL 20mEq 1,000 ML IV SCH (07:11)
[2018-12-07] MEDS: Multivitamin Tab PO SCH (08:08)
[2018-12-07] MEDS: Dicyclomine 10 mg Cap PO SCH ×2 (08:08→13:03)
[2018-12-07] MEDS: OLANZapine 5 mg Oral Disintegrating Tab PO SCH (08:08)
[2018-12-07] MEDS: Heparin Sod 5,000Units/ML 5,000 UNITS/ML VIAL SUBQ SCH (08:08)
[2018-12-07] MEDS: POLYETHYLENE GLYCOL 3350 17 GM PACK PO SCH (08:08)
--- NOTE | 2018-12-07 08:37 | Progress Notes ---
DATE: 12/07/2018 SUBJECTIVE: Chart reviewed and the patient interviewed. Also discussed the patient's condition with the staff and reviewed records and labs. The patient is still easily agitated and easily irritable. The patient also is still suspicious and is still paranoid and have difficulty following the instructions and uncooperative with the staff. The patient also is asking to go home regardless her medical condition that is deteriorating and needs immediate care and immediate attention. The patient also is still resisting care. At the same time working with the patient's son in regard to her discharge plans and her going to a nursing facility to continue her treatment after her discharge. At the same time, we will continue to work on her irritability and anger and her mood and we will continue to follow up closely. JOB# [id number]
--- NOTE | 2018-12-07 09:47 | Diagnostic Imaging Report ---
KUB single view HISTORY: Nausea and vomiting COMPARISON: KUB CT abdomen and pelvis on 12/03/2018 FINDINGS: Persistent significant distention of loops of bowel are noted. Visualized gas-distended loops of bowel are noted. Oral contrast from previous procedures seen primarily throughout the large bowel. Percutaneous gastric feeding tube is noted. IMPRESSION: Persistent diffuse gas distended loops of bowel which may represent a severe ileus. Clinical correlation and follow-up recommended.
--- NOTE | 2018-12-07 13:32 | Discharge Summary ---
DATE OF DISCHARGE: 12/07/2018 CHIEF COMPLAINT: Low blood pressure. FINAL DIAGNOSES: Episode of hypotension, which is improved, G-tube, COPD, dementia, hypothyroidism, degenerative joint disease, malnutrition and chronic renal insufficiency, proteinuria. HISTORY: This is a 63-year-old -[place] female, history of COPD, dementia, hypothyroidism, degenerative joint disease, psych disorder, admitted initially to [facility]. The patient noted to have low blood pressure, which is persistent. The patient brought in for further management. PHYSICAL EXAMINATION: VITAL SIGNS: Blood pressure 115/65, respirations 18, pulse 63, temperature 98.4. GENERAL: Elderly female, appears chronically ill. NECK: Supple. No mass. LUNGS: Equal breath sounds, few rhonchi. HEART: Regular rate and rhythm with systolic ejection murmur. ABDOMEN: Soft, globular. EXTREMITIES: Positive excoriation contracture atrophy. HOSPITAL COURSE: The patient was admitted to medical floor, continue oxygen, bronchodilator treatments, given aggressive IV hydration. The patient's daughter also complaining of abdominal discomfort, reported Dr. Gutierrez for GI. The patient was also being followed by Dr. Serrano for Psychiatry. The patient's condition has improved. The patient was started on midodrine for IV support. The patient is appropriate for home, hence the patient is being [facility]. This was discussed with the patient's son and he is agreeable. CONDITION ON DISCHARGE: Fair. OVERALL PROGNOSIS: Poor. DISCHARGE INSTRUCTIONS: The patient to be transferred to a prison facility [place] per family, under medical interpreter and Dr. Serrano will be following. JOB# [id number]
--- NOTE | 2018-12-07 15:02 | GI Progress Note ---
Subjective - Review of Systems Service Date: 12/07/18 Events since last encounter: no new events GI OBJECTIVE - Results Result Diagrams: 12/05/18 04:50 12/05/18 04:50 Recent Labs: Laboratory Last Values WBC 5.2 Th/cmm (4.8-10.8) 12/05/18 04:50 RBC 2.51 Mil/cmm (3.80-5.20) L 12/05/18 04:50 Hgb 8.1 gm/dL (12-16) L 12/05/18 04:50 Hct 24.3 % (41.0-60) L 12/05/18 04:50 MCV 96.8 fl (81-100) 12/05/18 04:50 MCH 32.3 pg (27.0-31.0) H 12/05/18 04:50 MCHC Differential 33.3 pg (28.0-36.0) 12/05/18 04:50 RDW 15.4 % (11.5-20.0) 12/05/18 04:50 Plt Count 189 Th/cmm (150-400) 12/05/18 04:50 MPV 8.6 fl 12/05/18 04:50 Neutrophils % 58.0 % (40.0-80.0) 12/05/18 04:50 Lymphocytes % 20.7 % (20.0-50.0) 12/05/18 04:50 Monocytes % 8.9 % (2.0-10.0) 12/05/18 04:50 Eosinophils % 11.4 % (0.0-5.0) H 12/05/18 04:50 Basophils % 1.0 % (0.0-2.0) 12/05/18 04:50 Sodium 138 mEq/L (136-145) 12/05/18 04:50 Potassium 3.6 mEq/L (3.5-5.1) 12/05/18 04:50 Chloride 96 mEq/L (98-107) L 12/05/18 04:50 Carbon Dioxide 33.5 mEq/L (21.0-31.0) H 12/05/18 04:50 Anion Gap 12.1 (7.0-16.0) 12/05/18 04:50 BUN 36 mg/dL (7-25) H 12/05/18 04:50 Creatinine 2.0 mg/dL (0.6-1.2) H 12/05/18 04:50 Est GFR ( Amer) 32.2 ml/min (>90) 12/05/18 04:50 Est GFR (Non-Af Amer) 26.6 ml/min 12/05/18 04:50 BUN/Creatinine Ratio 18.0 12/05/18 04:50 Glucose 84 mg/dL (70-105) 12/05/18 04:50 POC Glucose 124 MG/DL (70 - 105) H 12/03/18 21:59 Calcium 8.6 mg/dL (8.6-10.3) 12/05/18 04:50 Magnesium 1.9 mg/dL (1.9-2.7) 12/05/18 04:50 Total Bilirubin 0.3 mg/dL (0.3-1.0) 12/02/18 16:15 AST 13 U/L (13-39) 12/02/18 16:15 ALT 6 U/L (7-52) L 12/02/18 16:15 Alkaline Phosphatase 65 U/L (34-104) 12/02/18 16:15 Ammonia 26 umol/L (16-53) 12/04/18 06:20 B-Natriuretic Peptide 175.0 pg/mL (5.0-100.0) H 12/04/18 06:20 Total Protein 7.0 gm/dL (6.0-8.3) 12/02/18 16:15 Albumin 3.5 gm/dL (3.7-5.3) L 12/02/18 16:15 Globulin 3.5 gm/dL 12/02/18 16:15 Albumin/Globulin Ratio 1.0 (1.0-1.8) 12/02/18 16:15 Vitamin B12 588 pg/mL (232-1245) 12/04/18 06:20 Folic Acid >20.0 ng/mL (>3.0) 12/04/18 06:20 TSH 2.65 uIU/ml (0.34-5.60) 12/02/18 16:15 Urine Source CLEAN C 12/03/18 11:30 Urine Color YELLOW 12/03/18 11:30 Urine Clarity SLIGHTLY HAZY (CLEAR) 12/03/18 11:30 Urine pH 5.5 (4.6 - 8.0) 12/03/18 11:30 Ur Specific [place] 1.010 (1.005-1.030) 12/03/18 11:30 Urine Protein 30 mg/dL (NEGATIVE) H 12/03/18 11:30 Urine Glucose (UA) NEGATIVE mg/dL (NEGATIVE) 12/03/18 11:30 Urine Ketones NEGATIVE mg/dL (NEGATIVE) 12/03/18 11:30 Urine Blood TRACE (NEGATIVE) 12/03/18 11:30 Urine Nitrate NEGATIVE (NEGATIVE) 12/03/18 11:30 Urine Bilirubin NEGATIVE (NEGATIVE) 12/03/18 11:30 Urine Urobilinogen 0.2 E.U./dL (0.2 - 1.0) 12/03/18 11:30 Ur Leukocyte Esterase SMALL (NEGATIVE) H 12/03/18 11:30 Urine RBC 0-2 /hpf (0-5) 12/03/18 11:30 Urine WBC 2-5 /hpf (0-5) 12/03/18 11:30 Ur Epithelial Cells FEW /lpf (FEW) 12/03/18 11:30 Urine Bacteria NONE SEEN /hpf (NONE SEEN) 12/03/18 11:30 - Physical Exam Vitals and I&O: Vital Signs Temp 98.4 F 12/07/18 12:56 Pulse 63 12/07/18 12:56 Resp 18 12/07/18 12:56 BP 115/85 12/07/18 12:56 Pulse Ox 96 12/07/18 12:56 Intake & Output 12/06/18 12/07/18 12/07/18 18:59 06:59 18:59 Intake Total 300 360 Balance 300 360 Weight (lbs) 48.534 kg 48.534 kg Intake: Oral 300 360 Other: # Voids 3 2 # Bowel Movements 2 2 Weight Source Bedscale Bedscale Active Medications: Current Medications Acetaminophen (Tylenol) 650 mg PO Q4H PRN PRN Reason: Mild Pain Or Fever above 101 Stop: 01/31/19 15:59 Last Admin: 12/05/18 11:02 Dose: 650 mg Albuterol Sulfate (Albuterol 2.5mg/3ml Neb Ud) 2.5 mg HHN Q2HRT PRN PRN Reason: Shortness of Breath or Wheeze Stop: 01/31/19 15:59 Dicyclomine HCl (Bentyl) 20 mg PO TID [facility] Stop: 01/31/19 20:59 Last Admin: 12/07/18 13:03 Dose: 20 mg Docusate Sodium (Colace) 250 mg PO BID MELANIE Stop: 02/03/19 16:59 Last Admin: 12/07/18 08:08 Dose: Not Given Haloperidol (Haldol) 5 mg PO BID MELANIE; Protocol Stop: 01/31/19 16:59 Last Admin: 12/07/18 08:07 Dose: Not Given Heparin Sodium (Porcine) (Heparin) 5,000 units SUBQ Q12H MELANIE Stop: 02/01/19 20:59 Last Admin: 12/07/18 08:08 Dose: Not Given Ipratropium [place] (Atrovent Neb 0.5mg/2.5ml) 0.5 mg IH Q2HRT PRN PRN Reason: Shortness of Breath or Wheeze Stop: 01/31/19 15:59 Levothyroxine Sodium (Synthroid) 0.15 mg PO QDAC [facility] Stop: 02/01/19 07:29 Last Admin: 12/07/18 06:48 Dose: 0.15 mg Lorazepam (Ativan) 2 mg IM Q4HR PRN; Protocol PRN Reason: Anxiety Stop: 02/01/19 07:10 Last Admin: 12/03/18 07:38 Dose: 2 mg Midodrine (Proamatine) 5 mg PO TID [facility] Stop: 02/03/19 13:59 Last Admin: 12/07/18 13:03 Dose: 5 mg Mirtazapine (Remeron) 15 mg PO HS MELANIE; Protocol Stop: 01/31/19 20:59 Last Admin: 12/06/18 21:10 Dose: 15 mg Multivitamins/Vitamin C (Theragran) 1 tab PO DAILY [facility] Stop: 02/01/19 08:59 Last Admin: 12/07/18 08:08 Dose: Not Given Olanzapine (Zyprexa Zydis) 5 mg PO DAILY [facility]; Protocol Stop: 02/01/19 08:59 Last Admin: 12/07/18 08:08 Dose: Not Given Ondansetron HCl (Zofran) 4 mg IV Q8H PRN PRN Reason: Nausea / Vomiting Stop: 01/31/19 15:59 Last Admin: 12/06/18 09:59 Dose: 4 mg Polyethylene Glycol (Miralax) 17 gm PO DAILY MELANIE Stop: 02/01/19 08:59 Last Admin: 12/07/18 08:08 Dose: Not Given HEENT: Atraumatic, PERRLA Neck: Supple, JVD Cardiovascular: Regular rate Lungs: Clear to auscultation Abdomen: Bowel sounds - Procedures Procedures: Procedures Procedure Code Date OTHER GROUP THERAPY 94.44 01/13/11 RECREATIONAL THERAPY 93.81 01/13/11 Assessment/Plan - Assessment Assessment: 63 yo female with G tube for venting purposes found to have constipation -continue with miralax and enemas -okay to feed -prn zofran -supportive management
== END 2018-12-07 17:20 | DRG 314 ==
LOC: MSI 15:55
PROVIDERS: ADMIT Internal Medicine; ATTEND Internal Medicine
DX: I95.9 Hypotension, unspecified (principal); E43 Unspecified severe protein-calorie malnutrition; Z68.1 Body mass index [BMI] 19.9 or less, adult; I12.9 Hypertensive chronic kidney disease with stage 1 through stage 4 chronic kidney disease, or unspecified chronic kidney disease; F25.1 Schizoaffective disorder, depressive type; F29 Unspecified psychosis not due to a substance or known physiological condition; E78.5 Hyperlipidemia, unspecified; J44.9 Chronic obstructive pulmonary disease, unspecified; E03.9 Hypothyroidism, unspecified; M19.90 Unspecified osteoarthritis, unspecified site; R13.10 Dysphagia, unspecified; F03.90 Unspecified dementia, unspecified severity, without behavioral disturbance, psychotic disturbance, mood disturbance, and anxiety; D64.9 Anemia, unspecified; R80.9 Proteinuria, unspecified; K59.00 Constipation, unspecified; N18.3 Chronic kidney disease, stage 3 (moderate); Z93.1 Gastrostomy status
CPT/HCPCS: 36415-UA; 70450-TC; 71045-TC; 74000-TC; 76700-TC; 80048-TC; 80053-TC; 81001-TC; 82140-TC; 82607-90; 82746-90; 82948-90; 83735-TC; 83880-TC; 84443-TC; 85025-TC; 87070-90; 94760; A4217; J1644; J2060; J2270; J2405; J7042; Z7610